=== PATIENT | female | born 1965 | race Caucasian/White ===

== ENCOUNTER 2017-09-21 14:00 | Outpatient (RCR) | payer MEDICAID, SELFPAY | END 2017-09-21 14:01 | disposition home or self-care (01) | LOC: PT 14:00 | PROVIDERS: Family Provider Emergency Medicine; PCP Nurse Practitioner Family; Visit Provider Orthopaedic Surgery Adult Reconstructive Orthopaedic Surgery | DX: M54.5 Low back pain (principal); M54.10 Radiculopathy, site unspecified | CPT/HCPCS: 97010; 97012; 97014; 97035; 97110; G0283 ==

== ENCOUNTER → 2018-02-07 09:56 | Outpatient (CLI) | payer MEDICAID, SELFPAY ==
--- NOTE | 2018-02-07 09:56 | US_ITS ---
US extremity LT limited Ordering Physician: Alin Bee MD Patient Age: 52 years: Female HISTORY: ITS.REASON: Knotpalpable nodule left groin TECHNIQUE: Ultrasound left groin with comparison imaging right groin COMPARISON :No relevant FINDINGS There is a near 3.8 cm in length x 1.9 cm AP CM AP nodule at the left groin. This has a reniform shape and most likely does reflect a enlarged lymph node. There is some shadowing from the likely central fatty hilum likely. Presuming this is a lymph node appears to be a slightly thickened cortex measuring up to 5 mm thickness. ... CT abdomen pelvis may be of benefit with this finding &/in this setting to evaluate for other findings or adenopathy, and support deepak enlargement pattern. . Also FNA guided biopsy would be appropriate at this enlarged lymph node should persist or progress and there is no site of infection more inferiorly at the left leg to account for this enlargement . scanning was performed at the right groin for comparison, and contralateral right reveals no nodules or lymph nodes of this character. IMPRESSION: . Reniform nodule most compatible with an enlarged Lymph node measuring up to nearly 3.8 cm in length- left groin. The cortex appears mildly thickened which is a bothersome feature for possible pathologic lymph node ... Consider CT abdomen /pelvis as next step. To survey for other nodes ... Suggest FNA biopsy of this enlarged node, if no infection or findings to account for it otherwise .
== END ==
PROVIDERS: Family Provider Emergency Medicine; PCP Emergency Medicine; Visit Provider Emergency Medicine
DX: R19.09 Other intra-abdominal and pelvic swelling, mass and lump (principal)
CPT/HCPCS: 76882

== ENCOUNTER → 2018-02-18 08:13 | Outpatient (CLI) | payer MEDICAID, SELFPAY ==
--- NOTE | 2018-02-18 08:15 | CT_ITS ---
CT abdomen pelvis w con CLINICAL INDICATION: Lymphadenopathy ITS.REASON: enlarged lymph node in groin ORDERING PHYSICIAN: SAVAGE Felton PATIENT AGE: 52 years COMPARISON: None TECHNIQUE: Axial images obtained with sagittal and coronal reformats. All CT scans at the facility use one or more dose reduction, viz: automated exposure control; ma/kV adjustment per patient size (including targeted exams where dose is matched to indication; i.e. head); or iterative reconstruction technique. PROCEDURE: Oral Contrast: Redicat IV Contrast: 75 mL's Isovue-370. FINDINGS: There are scattered lucencies in the right lung base consistent with centrilobular emphysematous change. The liver, spleen, and pancreas have an unremarkable appearance. No radio opaque gallstones. The adrenal glands aren't enlarged bilaterally and are indeterminant measuring up to 2 x 1.6 cm on the right and 2.2 x 1.8 cm on the left. The enhanced density is near 35 Hounsfield units on the right and 33 Hounsfield units on the left. No hydronephrosis. No renal mass. No renal or ureteral calculi. No evidence of appendicitis. There is diverticulosis of the entire colon. No evidence of diverticulitis. No retroperitoneal or intraperitoneal adenopathy is evident. No pelvic mass abnormal fluid collection or focal inflammatory change of the pelvis. There is a 5.9 x 4.9 x 4.4 cm solid-appearing mass in the left inguinal area which may be due to an enlarged lymph node. This corresponds to the sonographic abnormality. No other areas of adenopathy evident. The mass is lateral to the common femoral artery, posterior to the sartorius muscle, and medial to the rectus femoris. IMPRESSION: 1. 5.9 x 4.9 x 4.4 cm soft tissue mass in the left inguinal area which may be due to enlarged lymph node. No other areas of adenopathy. 2. Bilateral adrenal enlargement indeterminate
== END ==
PROVIDERS: Family Provider Emergency Medicine; PCP Emergency Medicine; Visit Provider Physician Assistant
DX: R59.9 Enlarged lymph nodes, unspecified (principal)
CPT/HCPCS: 74177; Q9967

== ENCOUNTER → 2018-02-21 09:34 | Outpatient (CLI) | payer MEDICAID, SELFPAY ==
--- NOTE | 2018-02-21 | US_ITS ---
FNA w guidance, US organ site (muscle), US biopsy (core) HISTORY: Left groin mass ITS.REASON: enlarged lymph node in groin ORDERING PHYSICIAN: Alin Bee MD PATIENT AGE: 52 years COMPARISON: [id number] TECHNIQUE: Following obtaining informed consent, using aseptic technique and local anesthesia with buffered lidocaine, fine-needle aspiration was performed of the nodule of interest using sonographic guidance. FNA was performed with a 25-gauge needle. 3 core biopsies were then performed with a 19-gauge needle under sonographic guidance. The patient tolerated the procedure well without evidence of knee, indications and left the radiology suite in stable condition. Specimen was given to cytology. 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
== END ==
PROVIDERS: Family Provider Emergency Medicine; PCP Emergency Medicine; Visit Provider Emergency Medicine
DX: R59.9 Enlarged lymph nodes, unspecified (principal)
CPT/HCPCS: 10022; 76882; 76942

== ENCOUNTER → 2018-03-22 13:38 | Outpatient (CLI) | payer MEDICAID, SELFPAY ==
--- NOTE | 2018-03-22 13:41 | MR_ITS ---
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 The bony pelvis has an unremarkable appearance. The surgically, the left hip joint is unremarkable. No fracture or dislocation. No evidence of avascular necrosis or hip joint effusion. The left groin mass does not involve the left femur nor acetabulum. There is a 5.9 x 4.7 x 4.5 cm mass in the left groin. The margins are well-circumscribed. The mass is isointense on T1 and T2 and does demonstrate some mild peripheral and heterogeneous contrast enhancement. It is difficult to determine exactly which muscle of the tumor is arising in. There is involvement of the anterior and medial aspect of the rectus femoris and the anterior aspect of the iliopsoas muscle. The sartorius muscle is nearly completely involved by the lesion at the level of the femoral head. The sartorius muscle is compressed anteriorly more inferior to this region. The mass is slightly displacing the femoral artery medially. The mass is slightly draped around the rectus femoris tendon anteriorly and posteriorly at the level of the femoral head. IMPRESSION: Left groin mass as described above at 5.9 x 4.7 x 4.5 cm consistent with patient's known granular cell tumor. There is involvement of several adjacent muscles including the rectus femoris, iliopsoas, and sartorius muscles with the greatest involvement of the sartorius. The femoral artery is slightly displaced medially and the lateral margin of the mass great anterior posterior to the rectus femoris tendon. The left hip joint has an unremarkable appearance. No bony involvement evident
== END ==
PROVIDERS: Family Provider Emergency Medicine; PCP Emergency Medicine; Visit Provider Surgery
DX: R10.2 Pelvic and perineal pain (principal)
CPT/HCPCS: 73723; A9576

== ENCOUNTER → 2018-07-30 13:52 | Outpatient (CLI) | payer MEDICAID, SELFPAY | PROVIDERS: Visit Provider Nurse Practitioner Family | DX: J02.9 Acute pharyngitis, unspecified (principal) ==

== ENCOUNTER → 2019-01-14 07:18 | Outpatient (CLI) | payer MEDICAID, SELFPAY ==
[2019-01-14 09:48] LABS: Free Thyroxine Index 2.6 ug/dL (5.93-13.13); T4 (Thyroxine) 7.5 ug/dl (4.7-13.3); Thyroid Stimulating Hormone 1.82 uIU/ml (0.358-3.740); Triiodothryronine (T3) Uptake 34 % (31-39)
[2019-01-14 23:49] LABS: Chol/HDL Ratio 3.6 (1-3.5); Cholesterol 232 mg/dL (140-200); HDL Cholesterol 64 mg/dL (29-89); LDL Cholesterol 149 mg/dL (0-130); Triglycerides 94 mg/dL (30-200); VLDL Cholesterol 19 mg/dL (0-40)
[2019-01-15 08:34] LABS: Estradiol <5.0 pg/mL (.); FSH 85.9 mIU/mL (.); LH 50.3 mIU/mL (.)
[2019-01-16 08:31] LABS: Vitamin D 25 Hydroxy 30.3 ng/mL (30.0-100.0)
== END ==
PROVIDERS: Nurse Practitioner Obstetrics & Gynecology; Visit Provider Obstetrics & Gynecology
DX: N95.1 Menopausal and female climacteric states (principal); R45.86 Emotional lability; R53.83 Other fatigue
CPT/HCPCS: 36415; 80061; 82652; 82670; 83001; 83002; 84436; 84443; 84479

== ENCOUNTER → 2019-02-05 08:45 | Outpatient (CLI) | payer MEDICAID, SELFPAY ==
--- NOTE | 2019-02-05 08:48 | XR_ITS ---
XR DEXA axial skeleton HISTORY: ITS.REASON: screening ORDERING PHYSICIAN: Alin Bee MD PATIENT AGE: 53 years COMPARISON: None FINDINGS: The BMD measured at the AP Spine L1-L4 femoral neck is 0.780 g/cm squared with a T score of -3.3. This is considered Osteoporotic according to the World Health Organization criteria. Fracture risk is High. Treatment is advised. The mean hip density has a T score -2.0. IMPRESSION: Osteoporosis with high fracture risk. Treatment is advised. Suggest follow-up exam January 2020
== END ==
PROVIDERS: PCP Emergency Medicine; Visit Provider Emergency Medicine
DX: Z78.0 Asymptomatic menopausal state (principal)
CPT/HCPCS: 77080

== ENCOUNTER → 2019-03-03 10:44 | Outpatient (CLI) | payer MEDICAID, SELFPAY ==
--- NOTE | 2019-03-03 10:46 | MM_ITS ---
MM Dig screening mamm BI w/CAD CAD Screening COMPARISON: Analog mammograms 03/02/2009 an 04/09/2006 INDICATION: There is no personal or family history of breast cancer TECHNIQUE: Standard CC and MLO images were obtained. R2 CAD reviewed. FINDINGS: Scattered fibroglandular densities are seen throughout both breasts. There is a stable asymmetric nodular density upper inner quadrant left breast which was seen on the previous study and is actually slightly smaller on today's study. This is likely a small cyst or fibroadenoma. There is no new or suspicious lesion in either breast and there are no suspicious microcalcifications. IMPRESSION: Fibrofatty parenchyma with no suspicious lesion seen BI-RADS Category: 2 Benign Finding(s) RECOMMENDED FOLLOW-UP: 1YR - 1 YEAR FOLLOW-UP (A letter has been sent to the patient regarding results of the study.)
== END ==
PROVIDERS: PCP Emergency Medicine; Visit Provider Emergency Medicine
DX: Z12.31 Encounter for screening mammogram for malignant neoplasm of breast (principal)
CPT/HCPCS: 77067

== ENCOUNTER → 2019-03-11 17:43 | Outpatient (CLI) | payer MEDICAID, SELFPAY ==
[2019-03-11 19:25] LABS: Amphetamine/Metha Screen,Urine Negative ng/mL (<1000); Barbiturates Screen,Urine Negative ng/mL (<200); Benzodiazepines Screen,Urine Negative ng/mL (<200); Cannabinoid Screen,Urine Negative ng/mL (<50); Cocaine Screen,Urine Negative ng/mL (<300); Methadone Screen,Urine Negative ng/mL (<300); Opiate Screen,Urine Negative ng/mL (<300); Phencyclidine Screen,Urine Negative ng/mL (<25)
== END ==
PROVIDERS: Visit Provider Nurse Practitioner Family
DX: Z79.899 Other long term (current) drug therapy (principal)
CPT/HCPCS: 80305

== ENCOUNTER 2019-06-25 14:00 | Outpatient (RCR) | payer OTHER, SELFPAY ==
--- NOTE | 2019-05-23 15:06 | HMH.PTOPEV ---
PT Outpatient Evaluation Rehab PT Outpatient Evaluation Start: 05/23/19 14:00 Freq: Status: Active Protocol: Document 05/23/19 14:48 PHORFABIAN (Rec: 05/23/19 15:06 PHORNE [id number]) Electronically Signed By Pedro Castle, PT 05/23/19 14:48 Outpatient Therapy Subjective History Subjective History Pt is 54 yowf who presents with c/o pain in the low back radiating into the right LE to knee distally intermittently x ~ 1 mo. She reports insidious onset of symptoms with intermittent numbness in the right LE also. She describes the pain as quick and sharp, then a constant dull ache and burning. She has increased pain with both flexion and extension. She reports increased pain aith sitting and laying supine as well. PMH: anxiety, GERD, HL, osteoporosis, and currently a left hip granuloma which causes increased pain and numbness throughout the left LE. Chief Complaint Pain Symptom Type Ache,Sharp,Dull,Burning Symptoms Relieved By Nothing Symptoms Aggravated By Supine,Sitting,Standing Prior Functional Limitations None Current Functional Limitations Lifting,Driving,Sleeping, Standing,Sitting Symptom Description Constant but Variable Level of pain today (0-10) 5 Pain scale - at its worst (0-10) 10 Lumbopelvic Eval Palapation tenderness bilateral lumbar spinal tenderness Yes paraspinal tenderness Yes Lumbar/Sacral Palpation Findings Tenderness Lumbar/Sacral Palpation Overall Comment Worse tenderness at T12-L1, but throughout lumbar spine. Accessory Movement T-spine Vertebrae Accessory Movements Central P/A [place] that Elicit Symptoms T11 bilateral T12 bilateral L-spine Vertebrae Accessory Movements Central P/A [place] that Elicit Symptoms L2 bilateral L3 bilateral L4 bilateral L5 bilateral S1 bilateral Range of Motion Lumbar Spine Active Flexion Range of 0-40 Motion (degrees) Lumbar Spine Active Extension Range of 0-5 Motion (degre
== END 2019-06-25 14:05 | disposition home or self-care (01) ==
LOC: PT 14:00
PROVIDERS: Visit Provider Nurse Practitioner Family
DX: M54.9 Dorsalgia, unspecified (principal)
CPT/HCPCS: 97010; 97110; 97163

== ENCOUNTER → 2020-01-14 16:55 | Outpatient (CLI) | payer OTHER, SELFPAY ==
[2020-01-14 18:28] LABS: Basophils # 0.1 K/mm3 (0-0.2); Basophils % 0.7 % (0.1-2.0); Eosinophils # 0.3 K/mm3 (0.0-0.4); Eosinophils % 3.7 % (0.1-12.0); Hematocrit 43.6 % (37.0-47.0); Hemoglobin 14.6 g/dL (12.2-16.2); Lymphocytes # 3.6 K/mm3 (0.7-4.5); Lymphocytes % 40.2 % (10-50); Mean Corpuscular HGB Conc 33.6 g/dL (31.8-35.4); Mean Corpuscular Hemoglobin 30.9 pg (27.0-31.2); Mean Corpuscular Volume 92.1 fl (81-99); Mean Platelet Volume 12.5 fl (7.4-10.4); Monocytes # 0.6 K/mm3 (0.1-1.0); Monocytes % 6.6 % (1.7-9.3); Neutrophils # 4.4 K/mm3 (1.8-7.8); Neutrophils % 48.8 % (37.0-80.0); Platelet Count 181 K/mm3 (142-424); Red Blood Count 4.73 M/mm3 (4.20-5.40); Red Cell Distribution Width 13.2 % (11.5-17.5)
[2020-01-14 18:29] LABS: Alanine Aminotransferase 17 U/L (12-78); Albumin Level 4.3 g/dl (3.5-5.0); Albumin/Globulin Ratio 1.6 (1.1-1.8); Alkaline Phosphatase 93 U/L (38-126); Anion Gap 9.4 mEq/L (5-15); Aspartate Amino Transferase 25 U/L (14-36); Bilirubin,Total 0.2 mg/dl (0.2-1.3); Blood Urea Nitrogen 12 mg/dl (7-17); Calcium 9.8 mg/dl (8.4-10.2); Carbon Dioxide 27 mmol/L (22.0-30.0); Chloride 105 mmol/L (98-107); Chol/HDL Ratio 2.6 (1-3.5); Cholesterol 201 mg/dl (140-200); Estimated Glomerular Filt Rate 88 ml/min (>60); GFR (African American) 106 ML/MIN (>60); Globulin 2.7 g/dL (1.3-3.2); Glucose 124 mg/dl (74-100); HDL Cholesterol 78 mg/dl (40-60); Potassium 4.4 mmoL/L (3.5-5.1); Sodium 137 mmol/L (136-145); Triglycerides 97 mg/dl (30-150); VLDL Cholesterol 19 mg/dL (0-40)
[2020-01-14 18:40] LABS: Direct LDL Cholesterol 128.79 mg/dL (100-129)
[2020-01-14 18:46] LABS: T4 (Thyroxine) 10.1 ug/dl (5.53-11.0)
[2020-01-14 18:59] LABS: Thyroid Stimulating Hormone 1.18 uIU/mL (0.465-4.68)
[2020-01-16 07:27] LABS: Vitamin D 25 Hydroxy 24.3 ng/mL (30.0-100.0)
== END ==
PROVIDERS: Visit Provider Nurse Practitioner Family
DX: Z01.89 Encounter for other specified special examinations (principal); M54.5 Low back pain; E78.5 Hyperlipidemia, unspecified; K21.9 Gastro-esophageal reflux disease without esophagitis; E55.9 Vitamin D deficiency, unspecified; F17.210 Nicotine dependence, cigarettes, uncomplicated; Z79.899 Other long term (current) drug therapy
CPT/HCPCS: 80053; 80061; 82652; 84436; 84443; 85025

== ENCOUNTER → 2020-02-11 14:06 | Outpatient (CLI) | payer OTHER, SELFPAY ==
--- NOTE | 2020-02-11 14:06 | MR_ITS ---
PROCEDURE: MR LUMBAR SPINE WO CON CLINICAL INDICATION: Low Back Paion COMPARISON: [facility] OPERATOR/O MRI-L-SPINE W/O from 07/31/2016 TECHNIQUE: Standard multiplanar multiecho sequences are performed without contrast. 3-D MIP and myelographic images are also rendered and reviewed FINDINGS: There is uniform fat marrow signal hyperintensity. Disc spaces are intact. There a small Schmorl's node within the superior vertebral body end-plate of L2. Spinal cord and conus medullaris is unremarkable. At the L1-2 disc space there is no significant spinal stenosis. At the L2-3 disc space there is no significant spinal stenosis. At the L3-4 disc space there is a bilateral bulging disc without significant spinal stenosis. At the L4-5 disc space there is a broad-based disc protrusion and mild facet arthropathy producing mild central canal stenosis. At the L5-S1 disc space there is no significant spinal stenosis. IMPRESSION: Mild L4-5 spinal stenosis, no change Dictated by: Fuad Mcdonough 02/11/2020 15:10 Electronically signed by Fuad Mcdonough in [facility] 02/11/2020 15:10
== END ==
PROVIDERS: PCP Emergency Medicine; Visit Provider Nurse Practitioner Family
DX: M54.5 Low back pain (principal)
CPT/HCPCS: 72148; 76376

== ENCOUNTER → 2020-03-08 11:16 | Outpatient (POV) | payer OTHER, SELFPAY ==
[2020-03-08 11:46] VITALS: BP 128/85; PULSE 85; RESP 18; TEMP 36.8; O2SAT 98; BMI 28.3
--- NOTE | 2020-03-08 14:25 | HMH.PMCON ---
Assessment and Plan (1) Sacroiliitis Current visit: Yes Status: Chronic Category: Medical Code(s): M46.1 - Sacroiliitis, not elsewhere classified (2) Low back pain Current visit: Yes Status: Chronic Category: Medical Code(s): M54.5 - Low back pain - Assessment and plan all Dx Assessment and Plan for all problems:: Patient does have tenderness over bilateral SI joints. We will schedule her for bilateral to see if she gets relief. We will see her back in the clinic afterwards to reassess her symptoms. Patient has been instructed to contact clinic if she has any concerns before next appointment. The patient and I specifically discussed risk factors for COVID19. These risks include, but are not limited to age greater than 60, heart or lung disease, diabetes, immunosuppression, and travel. We also discussed NSAIDs may worsen COVID19 infection or symptoms. Patient should not use NSAIDs to treat COVID19 signs or symptoms. Patient was also informed that any type of corticosteroid of any form (oral or injection) will decrease the patient's immune system response and may increase the likelihood of COVID19 infection [address] symptoms[address] Collazo has reviewed this note and agrees with this plan of care. This note was dictated using voice recognition software and make contain errors or omissions. HPI - Data of Consult Patient: new to practice Consult date: 03/08/20 Requesting Physician: Vickie Varela APRN Primary Care Provider: Alin Bee MD - Consult Narrative Reason for consult: Low back pain with radiation into bilateral hips History of present illness: Ms. Grossman is a 54 year old female who presents today for low back pain with radiation into her bilateral hips. Patient says that she is having pain in her low back with radiation into her lower extremities. She says the pain is worse with standing or walking and improves with sitting. She has tenderness noted over her bilateral SI joints. She also has a positive Nemesio's, [place]'s, distraction test. She does rate her pain a 5 out of 10. CC: Vickie Varela APRN [facility] History I have reviewed the patient's past medical history: Yes Medical History: Reports:: Anxiety, Gastroesophageal Reflux Disease(GERD), Hyperlipidemia Denies:: Cancer, Diabetes Mellitus Type 1, Diabetes Mellitus Type 2, MRSA *Have you ever received a pneumonia vaccine?: Yes *Have you received a flu vaccine this season?: Yes Other Surgeries: Yes: No Previous Surgery, Tubal Ligation Amputation: No Fractures: Yes - *Social History Smoking Status: Current every day smoker Tobacco Type: cigarettes # Packs/Day (cigarettes): 1 Alcohol Intake: never Substance Use Type: denies use *Occupational Status:: other Housing: house Household Members: other *Travel in the last 8 weeks: None - Psychiatric History Pschychiatric History:: Reports:: Anxiety Family Hx:: Unable to obtain Review of Systems - Review of Systems Review of Systems General: No recent weight changes, no fever, no sleep disturbances Respiratory: No cough, no shortness of air, no recurring pulmonary infections Cardiovascular/peripheral vascular: No chest pain, no palpitations, no edema, no shortness of breath Gastrointestinal: No new onset incontinence, normal bowel movements reported Genitourinary: No new onset incontinence Musculoskeletal: Low back pain, bilateral hip pain Psychiatric: Normal mood/affect Neurological: [Denies weakness in extremities], [denies balance issues] Meds Home Medications Medication Instructions Recorded Confirmed Type omeprazole 20 mg capsule,delayed 20 mg PO BID cap 01/27/19 02/03/20 History release calcium carbonate 600 mg (1,500 tab PO 09/22/19 02/03/20 History mg)-vitamin D3 400 unit tablet cyclobenzaprine 10 mg tablet 10 mg PO TID PRN #60 tab 01/14/20 02/03/20 Rx cholecalciferol (vitamin D3) 1,250 1,250 mcg PO QWEEK #7 cap 01/22/20 02/03/20 Rx mcg (50,000 u
== END ==
PROVIDERS: PCP Emergency Medicine; Visit Provider Clinical Nurse Specialist Family Health
DX: M46.1 Sacroiliitis, not elsewhere classified (principal); M54.5 Low back pain
CPT/HCPCS: 99202

== ENCOUNTER 2020-03-19 14:22 | Day surgery (SDC) | payer OTHER, SELFPAY ==
[2020-03-19 14:44] VITALS: BP 141/81; PULSE 104; RESP 18; TEMP 36.6; O2SAT 100; BMI 29.0
[2020-03-19 15:08] VITALS: BP 122/85; PULSE 85; RESP 18
[2020-03-19 15:09] VITALS: BP 128/78; PULSE 89; RESP 18; O2SAT 98
--- NOTE | 2020-03-19 15:10 | HMH.PMPROC ---
- Procedure Date: 03/19/20 Time: 15:10 Anesthesiologist:: Jose Collazo MD Complications:: None Pre-procedure Diagnosis:: Sacroiliitis Post-procedure Diagnosis:: Same Indications for Procedure:: This patient is a pleasant 54-year-old white female who we are treating for bilateral hip pain. She does have a noncancerous tumor in the left groin. She is tender over both SI joints. She has a positive Nemesio's test bilaterally. She is positive [place] test bilaterally. She is positive SI joint compression test bilaterally. We will do bilateral SI joint injections under fluoroscopy today to help her with her pain symptoms. Procedure Details:: B/L SI joint injection under fluoroscopy Informed consent was obtained and the risks and benefits of the procedure was explained to the patient. The patient was taken to the procedure room and placed prone on the procedure table. The patient was prepped using ChloraPrep. The skin and subcutaneous tissues overlying the SI joints were anesthetized using lidocaine. I placed a 22-gauge needle first in the left SI joint and second in the right SI joint. Needle placement was confirmed with dye. After this we injected 5 mL bupivacaine 0.25% and Depo-Medrol 40 mg into each SI joint. Patient tolerated the procedure well with no complication. Plan and Disposition:: I will follow-up with her in 2 weeks. Will reevaluate her symptoms at that time.
[2020-03-19 15:13] VITALS: BP 159/78; PULSE 101; RESP 18; O2SAT 100
== END 2020-03-19 15:15 | disposition home or self-care (01) ==
LOC: SC.PAINP 14:22
PROVIDERS: PCP Emergency Medicine; Visit Provider Anesthesiology
DX: M46.1 Sacroiliitis, not elsewhere classified (principal); I10 Essential (primary) hypertension; Z72.0 Tobacco use; J44.9 Chronic obstructive pulmonary disease, unspecified; F41.9 Anxiety disorder, unspecified; F32.9 Major depressive disorder, single episode, unspecified; M81.0 Age-related osteoporosis without current pathological fracture; Z79.899 Other long term (current) drug therapy
CPT/HCPCS: 27096; G0260; J1030; Q9966

== ENCOUNTER → 2020-04-08 09:36 | Outpatient (POV) | payer OTHER, SELFPAY ==
[2020-04-08 10:17] VITALS: BP 118/71; PULSE 85; RESP 18; O2SAT 99; BMI 28.3
--- NOTE | 2020-04-08 11:53 | HMH.PAINSOAP ---
[facility] Pain Management SOAP Note Subjective:: Patient is a pleasant 55-year-old white female who presents today for follow-up. She recently underwent bilateral SI joint injections. Patient says that she did get relief on the right side, however, her left side is worse. She rates her pain a 6 out of 10 today. She does not want to proceed with any further injective therapy. Patient also says she is not interested in any epidurals or any type of injections. She is also not interested in any type of imaging or implanted devices. She does take anti-inflammatories. She is tried physical therapy and continues with a home stretching program. Review of Systems General: No recent weight changes, no fever, no sleep disturbances Respiratory: No cough, no shortness of air, no recurring pulmonary infections Cardiovascular/peripheral vascular: No chest pain, no palpitations, no edema, no shortness of breath Gastrointestinal: No new onset incontinence, normal bowel movements reported Genitourinary: No new onset incontinence Musculoskeletal: Left low back pain, left hip pain Psychiatric: Normal mood/affect Neurological: [Denies weakness in extremities], [denies balance issues] Objective:: Physical exam General: Alert and oriented x3, no acute distress, pleasant and cooperative, [on room air] Lungs: Respirations even and unlabored, symmetrical chest expansion Eyes: PERRL Musculoskeletal: Flexion and extension of lumbar spine somewhat guarded secondary to pain, deep tendon reflexes normal, strength in upper and lower extremities [5/5], [abnormal gait noted] positive [place]'s test, positive Nemesio's test, positive distraction test Neurological: Speech clear, wood room hand equal, no gross sensory deficit Assessment:: Sacroiliitis bilateral Plan:: Patient's not interested in further injective therapy. We will start on Flexeril 10 mg 1 tablet p.o. 3 times daily. We will plan to see her back in a month to reassess her symptoms. She has been instructed to contact clinic if she has any concerns for next appointment. The patient and I specifically discussed risk factors for COVID19. These risks include, but are not limited to age greater than 60, heart or lung disease, diabetes, immunosuppression, and travel. We also discussed NSAIDs may worsen COVID19 infection or symptoms. Patient should not use NSAIDs to treat COVID19 signs or symptoms. Patient was also informed that any type of corticosteroid of any form (oral or injection) will decrease the patient's immune system response and may increase the likelihood of COVID19 infection [address] symptoms[address] Collazo has reviewed this note and agrees with this plan of care. This note was dictated using voice recognition software and make contain errors or omissions. [facility] History I have reviewed the patient's past medical history: Yes Medical History: Reports:: Anxiety, Gastroesophageal Reflux Disease(GERD), Hyperlipidemia Denies:: Cancer, Diabetes Mellitus Type 1, Diabetes Mellitus Type 2, MRSA, Seizures *Have you ever received a pneumonia vaccine?: Yes *Have you received a flu vaccine this season?: Yes Other Surgeries: Yes: No Previous Surgery, Tubal Ligation Amputation: No Fractures: Yes - *Social History Smoking Status: Current every day smoker Tobacco Type: cigarettes # Packs/Day (cigarettes): 1 Alcohol Intake: current Alcohol Intake Frequency:: a few times a month Substance Use Type: denies use *Occupational Status:: other Housing: house Household Members: other *Travel in the last 8 weeks: None - Psychiatric History Pschychiatric History:: Reports:: Anxiety Family Hx:: Unable to obtain
== END ==
PROVIDERS: PCP Emergency Medicine; Visit Provider Clinical Nurse Specialist Family Health
DX: M46.1 Sacroiliitis, not elsewhere classified (principal)
CPT/HCPCS: 99212

== ENCOUNTER → 2020-04-22 10:07 | Outpatient (POV) | payer OTHER, SELFPAY ==
--- NOTE | 2020-04-22 11:19 | HMH.PAINSOAP ---
[facility] Pain Management SOAP Note Subjective:: Patient is a pleasant 55-year-old white female who presents today for follow-up. She has been treated for chronic low back pain with radiation into lateral hips. She did undergo SI injections for which she did get relief on the right side, however, her pain continued on the left side. Patient rates her pain a 3 out of 10 today. Patient is managed with gabapentin 800 mg 1 tablet p.o. [address] Bee. We started the patient on Flexeril 10 mg 1 tablet p.o. 3 times daily at her last visit. Patient says since starting Flexeril, she is doing much better with her pain. She says her baseline is a 4 out of 10 and she is a 3 out of 10 today. She also says that she has been able to cut back on her gabapentin. She is now taking her Flexeril 3 times a day and her gabapentin 2 times a day. Overall, the patient feels that she is doing much better with her pain. Review of Systems General: No recent weight changes, no fever, no sleep disturbances Respiratory: No cough, no shortness of air, no recurring pulmonary infections Cardiovascular/peripheral vascular: No chest pain, no palpitations, no edema, no shortness of breath Gastrointestinal: No new onset incontinence, normal bowel movements reported Genitourinary: No new onset incontinence Musculoskeletal: Low back pain, bilateral hip pain Psychiatric: Normal mood/affect Neurological: [Denies weakness in extremities], [denies balance issues] Objective:: Physical exam General: Alert and oriented x3, no acute distress, pleasant and cooperative, [on room air] Lungs: Respirations even and unlabored, symmetrical chest expansion Eyes: PERRL Musculoskeletal: Flexion and extension of lumbar spine somewhat guarded secondary to pain, deep tendon reflexes normal, strength in upper and lower extremities [5/5], [abnormal gait noted] Neurological: Speech clear, web development consultant equal, no gross sensory deficit Assessment:: Degenerative disc disease lumbar spine with lumbar radiculopathy symptoms, sacroiliitis Plan:: We will continue the patient on her Flexeril 10 mg 1 tablet p.o. 3 times daily. She is doing well with her dose. She has been able to cut back on her gabapentin. We will give her 3 months worth of medication see her back in the clinic in 3 months to reassess her symptoms. She does not need any further injective therapy at this time. Patient has been instructed to contact clinic if she has any concerns before next appointment. The patient and I specifically discussed risk factors for COVID19. These risks include, but are not limited to age greater than 60, heart or lung disease, diabetes, immunosuppression, and travel. We also discussed NSAIDs may worsen COVID19 infection or symptoms. Patient should not use NSAIDs to treat COVID19 signs or symptoms. Patient was also informed that any type of corticosteroid of any form (oral or injection) will decrease the patient's immune system response and may increase the likelihood of COVID19 [address] Collazo has reviewed this note and agrees with this plan of care. This note was dictated using voice recognition software and make contain errors or omissions. [facility] History I have reviewed the patient's past medical history: Yes Medical History: Reports:: Anxiety, Gastroesophageal Reflux Disease(GERD), Hyperlipidemia Denies:: Cancer, Diabetes Mellitus Type 1, Diabetes Mellitus Type 2, MRSA, Seizures *Have you ever received a pneumonia vaccine?: Yes *Have you received a flu vaccine this season?: Yes Other Surgeries: Yes: No Previous Surgery, Tubal Ligation Amputation: No Fractures: Yes - *Social History Smoking Status: Current every day smoker Tobacco Type: cigarettes # Packs/Day (cigarettes): 1 Alcohol Intake: current Alcohol Intake Frequency:: a few times a month Substance Use Type: denies use *Occupational Status:: other Housing: house Household Members: other *Travel in the last
[2020-04-22 11:39] VITALS: BP 119/81; PULSE 84; RESP 18; O2SAT 98; BMI 28.3
== END ==
PROVIDERS: PCP Emergency Medicine; Visit Provider Clinical Nurse Specialist Family Health
DX: M51.16 Intervertebral disc disorders with radiculopathy, lumbar region (principal); M46.1 Sacroiliitis, not elsewhere classified
CPT/HCPCS: 99212

== ENCOUNTER → 2020-05-31 10:36 | Outpatient (POV) | payer OTHER, SELFPAY ==
[2020-05-31 11:23] VITALS: BP 125/74; PULSE 84; RESP 18; TEMP 36.8; O2SAT 98; BMI 28.3
--- NOTE | 2020-05-31 12:32 | HMH.PAINSOAP ---
[facility] Pain Management SOAP Note Subjective:: Patient is a very pleasant 55-year-old white female who presents today for follow-up. She has been treated for chronic low back pain with radiation into her bilateral hips. She did undergo SI joint injections which she did get relief on her right side. 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 Patient is currently on gabapentin 800 mg 1 tab p.o. 3 times daily and Flexeril 10 mg 1 p.o. 3 times daily. Patient states most of her pain now is in her thoracic spine. She has difficulty with muscle spasms in that area she has radiation of the pain into her left side through her ribs. She rates her pain a 7 out of 10. ROS General: no recent weight change, no fever, no sleep disturbances Respiratory: no cough, no shortness of air, no recurring pulmonary infections Cardiovascular/Peripheral Vascular: No chest pain, No palpitations, no edema, no shortness of breath. Gastrointestinal: no new onset incontinence, normal bowel movements reported Genitourinary: no new onset incontinence Musculoskeletal: Thoracic back pain Psychiatric: normal mood/ affect Neurological: [denies new onset weakness in extremities], [denies new onset balance issues] Objective:: Physical Exam General: Alert and oriented x3, no acute distress, pleasant and cooperative, [on room air] Lungs: Resps E/U, Symmetrical chest expansion, Eyes: PERRL Musculoskeletal: Flexion and extension of thoracic spine somewhat guarded secondary to pain, deep tendon reflexes normal, strength in upper and lower extremities [5/5], normal gait noted, palpable trigger points throughout the thoracic paraspinous Neurological: speech clear, warehouse distribution associate equal, no gross sensory deficits Assessment:: Degenerative disc disease lumbar spine lumbar radiculopathy, thoracic back pain, myofascial pain syndrome, sacroiliitis Plan:: We will order a thoracic MRI to help determine pathology with the patient. We will continue her on her Flexeril 10 mg 1 p.o. 3 times daily. Patient is instructed to call the office if she has any issues prior to her next appointment. We will follow-up with her after her MRI. Patient may need thoracic trigger point injections. Dr. Collazo has reviewed this note and agrees with this plan of care. This note was dictated using voice recognition software and may contain errors or omissions [facility] History I have reviewed the patient's past medical history: Yes Medical History: Reports:: Anxiety, Gastroesophageal Reflux Disease(GERD), Hyperlipidemia Denies:: Cancer, Diabetes Mellitus Type 1, Diabetes Mellitus Type 2, MRSA, Seizures *Have you ever received a pneumonia vaccine?: Yes *Have you received a flu vaccine this season?: Yes Other Surgeries: Yes: No Previous Surgery, Tubal Ligation Amputation: No Fractures: Yes - *Social History Smoking Status: Current every day smoker Tobacco Type: cigarettes # Packs/Day (cigarettes): 1 Alcohol Intake: current Alcohol Intake Frequency:: a few times a month Substance Use Type: denies use *Occupational Status:: other Housing: house Household Members: other *Travel in the last 8 weeks: None - Psychiatric History Pschychiatric History:: Reports:: Anxiety Family Hx:: Unable to obtain
== END ==
PROVIDERS: PCP Emergency Medicine; Visit Provider Clinical Nurse Specialist Family Health
DX: M51.16 Intervertebral disc disorders with radiculopathy, lumbar region (principal); M54.6 Pain in thoracic spine; M79.18 Myalgia, other site; M46.1 Sacroiliitis, not elsewhere classified; Z72.0 Tobacco use
CPT/HCPCS: 99212

== ENCOUNTER → 2020-06-07 14:13 | Outpatient (CLI) | payer OTHER, SELFPAY ==
--- NOTE | 2020-06-07 14:16 | MR_ITS ---
PROCEDURE: MR THORACIC SPINE WO CON CLINICAL INDICATION: BACK PAIN Left-sided back pain and tingling AND PAIN. [id number]. NO INJURY. NO PRIOR. COMPARISON: CR XR CHEST 2V from 09/01/2019 TECHNIQUE: Routine multiplanar multi echo sequences are performed without gadolinium enhancement. FINDINGS: There is normal alignment. No acute fracture or dislocation is evident. No lytic or blastic change. There is mild upper thoracic scoliosis convex left and mild lower thoracic scoliosis convex right. There is mild multilevel disc desiccation suggesting mild degenerative disc disease. There is some facet and ligamentum hypertrophy on the right at T4-T5 with mild right lateral recess narrowing. Mild degenerative disc disease T3-T4. Small left paracentral disc osteophyte complex at T8-T9 with degenerative disc disease at that level. No cord impingement. The spinal cord has an unremarkable appearance and ends at the T12-L1 level. IMPRESSION: Mild thoracic spondylosis with mild scoliosis. No acute fracture or dislocation. No disc herniation or canal stenosis. Please see above for detailed description. Dictated by: Carl Urena MD 06/07/2020 17:18 Carl Urena MD in [place] 06/08/2020 09:22
== END ==
PROVIDERS: PCP Emergency Medicine; Visit Provider Clinical Nurse Specialist Family Health
DX: M54.6 Pain in thoracic spine (principal)
CPT/HCPCS: 72146

== ENCOUNTER → 2020-06-14 11:36 | Outpatient (POV) | payer OTHER, SELFPAY ==
--- NOTE | 2020-06-14 12:06 | P.CONS_ITS ---
[facility] Pain Management SOAP Note Subjective:: She is a pleasant 55-year-old white female who presents today for follow-up after MRI. She has been treated for chronic low back pain with radiation into her bilateral hips she did undergo SI joint injections which she did get relief on her right side however her left side is still having some pain but the worst pain is in her thoracic spine. She recently had an MRI showing Small left paracentral disc osteophyte complex at T8-T9 with degenerative disc disease at that level. Patient states that most of her pain is on the left side of her thoracic spine radiating into her intercostal space at times. She is currently on gabapentin 800 mg 1 tab p.o. 3 times daily and Flexeril 10 mg 1 p.o. 3 times daily. Patient is interested in injective therapy. She is not on any anticoagulation therapy. She rates her pain today 6 out of 10. ROS General: no recent weight change, no fever, no sleep disturbances Respiratory: no cough, no shortness of air, no recurring pulmonary infections Cardiovascular/Peripheral Vascular: No chest pain, No palpitations, no edema, no shortness of breath. Gastrointestinal: no new onset incontinence, normal bowel movements reported Genitourinary: no new onset incontinence Musculoskeletal: Thoracic back pain Psychiatric: normal mood/ affect Neurological: [denies new onset weakness in extremities], [denies new onset balance issues] Objective:: Physical Exam General: Alert and oriented x3, no acute distress, pleasant and cooperative, [on room air] Lungs: Resps E/U, Symmetrical chest expansion, Eyes: PERRL Musculoskeletal: Flexion and extension of thoracic spine somewhat guarded secondary to pain, deep tendon reflexes normal, strength in upper and lower extremities [5/5], antalgic gait noted Neurological: speech clear, assistant media buyer equal, no gross sensory deficits Assessment:: Degenerative disc disease thoracic spine thoracic radiculopathy Plan:: We will move forward with a T 8 T9 epidural steroid injection. I believe in given her symptomology and pathology this will benefit her. Patient has failed conservative measures including medications I will follow-up with her after her injection reassess her symptoms at that time she has been instructed to call the office if she has any issues prior to her next appointment. Dr. Collazo has reviewed this note and agrees with this plan of care. This note was dictated using voice recognition software and may contain errors or omissions [facility] History I have reviewed the patient's past medical history: Yes Medical History: Reports:: Anxiety, Gastroesophageal Reflux Disease(GERD), Hyperlipidemia Denies:: Cancer, Diabetes Mellitus Type 1, Diabetes Mellitus Type 2, MRSA, Seizures *Have you ever received a pneumonia vaccine?: Yes *Have you received a flu vaccine this season?: Yes Other Surgeries: Yes: No Previous Surgery, Tubal Ligation Amputation: No Fractures: Yes - *Social History Smoking Status: Current every day smoker Tobacco Type: cigarettes # Packs/Day (cigarettes): 1 Alcohol Intake: current Alcohol Intake Frequency:: a few times a month Substance Use Type: denies use *Occupational Status:: other Housing: house Household Members: other *Travel in the last 8 weeks: None - Psychiatric History Pschychiatric History:: Reports:: Anxiety Family Hx:: Unable to obtain
[2020-06-14 12:46] VITALS: BP 140/74; PULSE 74; RESP 18; O2SAT 98; BMI 29.2
== END ==
PROVIDERS: PCP Emergency Medicine; Visit Provider Clinical Nurse Specialist Family Health
DX: M51.14 Intervertebral disc disorders with radiculopathy, thoracic region (principal)
CPT/HCPCS: 99212

== ENCOUNTER 2020-08-03 21:01 | Emergency (ER) | payer OTHER, SELFPAY ==
[2020-08-03 21:02] VITALS: BP 140/97; PULSE 102; RESP 16; TEMP 36.9; O2SAT 98; BMI 28.3
--- NOTE | 2020-08-03 21:31 | PC.NURSE ---
pt ambulated to the bathroom independently. tolerated well
--- NOTE | 2020-08-03 21:40 | HMH.EDBACK ---
ED Disposition Clinical Impression: Thoracic or lumbosacral neuritis or radiculitis Disposition: Home, Self-Care Condition on Discharge: Good Instructions: DI for Acute Pain -- Adult Additional Instructions: see pcp and dr collazo for follow up Referrals: Alin Bee MD [Primary Care Provider] - - Critical Care Critical Care Time: No Attestation: On 08/03/20, the high probability of a clinically significant, sudden or life threatening deterioration of the following system(s) required my full and direct attention, intervention and personal management. The time I documented below is in addition to time spent performing reported procedures but includes the following listed in this critical care notation. Medical Decision Making - Medical Records Medical records reviewed: Yes: I reviewed the patient's medical records. - Kj Inquiry Pt receiving controlled substance: No Vital Signs: 08/03/20 21:02 Temperature 98.4 F Temperature Source Oral Pulse Rate [Left Radial] 102 H Respiratory Rate 16 Blood Pressure [Right Arm] 140/97 H Blood Pressure Mean [Right Arm] 111 Blood Pressure Source [Right Arm] Automatic Cuff Blood Pressure Position [Right Arm] Sitting 02 Sat by Pulse Oximetry 98 Oxygen Delivery Method Room Air - Lab Data Lab results reviewed: Yes: I reviewed the patient's lab results. Back Pain HPI - General Chief Complaint: PAIN Stated Complaint: BACK AND ;EG PAIN Time Seen by Provider: 08/03/20 21:30 Mode of Arrival: Ambulatory Source of Information: Patient, Medical Record Limitations: No Limitations Description of Symptoms (Recalled from ER Triage Doc. by RN): pt complains of chronic lower back and sciatic pain but stated it has gotten worse since 2pm today. pt denies any injury or new sensation to her pain. pt stated she took a flexaril at 3pm today that gave her no relief and hasnt taken any medication since. pt stated she is scheduled to have a thoracic injection performed by Dr. Collazo this sunday. - History of Present Illness HPI Narrative: ongoing back pain with pending eval by dr collazo- she presents with increased pain since 1400 w/o fever/rash or trauma - she fell against chair today as leg gave out but declined xrays as she felt it was not sig injury - no cauda equina sx Complaint: back pain Onset (ago): hour(s) Duration: constant Similar Symptoms Previously: Yes Location: thoracic spine Severity: moderate Quality: sharp Radiation: left leg Relieving factors: none Associated symptoms: denies other symptoms - Related Data Home Medications Medication Instructions Recorded Confirmed calcium carbonate 600 mg (1,500 1 tab PO DAILY 09/22/19 08/03/20 mg)-vitamin D3 400 unit tablet Cholecalciferol (Vitamin D3) 1,250 mcg PO QWEEK 03/19/20 08/03/20 [Vitamin D3 50,000 unit Cap] Fluticasone Propionate 1 spray INTRANASAL DAILY 03/19/20 08/03/20 Citalopram Hydrobromide [Celexa] See Rx Instructions .ROUTE .COMPLEX 08/03/20 08/03/20 Cyclobenzaprine HCl [Flexeril 10mg 10 mg PO TID 08/03/20 08/03/20 tablet] Fluticasone/Vilanterol [Breo 1 inh INHALATION DAILY 08/03/20 08/03/20 Ellipta 100-25 Mcg INH] Quetiapine Fumarate See Rx Instructions .ROUTE .COMPLEX 08/03/20 08/03/20 polyethylene glycoL 3350 17 g PO DAILY 08/03/20 08/03/20 [Polyethylene Glycol 3350] Previous Rx's Medication Instructions Recorded omeprazole 20 mg capsule,delayed 20 mg PO BID #180 cap 04/07/20 release alendronate 70 mg tablet 70 mg PO QWEEK #14 tab 05/08/20 naproxen 500 mg tablet 500 mg PO BID PRN #60 tab 05/13/20 gabapentin 800 mg tablet 800 mg PO TID #90 tab 06/15/20 Allergies Allergy/AdvReac Type Severity Reaction Status Date / Time No Known Allergies Allergy Verified 08/03/20 21:18 [facility] History - Hepatitis A Screen Drug use history?: No High risk sexual behaviors?: No History of sexually transmitted infection?: No Currently employed?: No Childcare worker?: No Do you have
--- NOTE | 2020-08-03 21:41 | PC.NURSE ---
pt friend/ ride home at bedside
[2020-08-03 21:51] VITALS: BP 137/83; PULSE 91; RESP 16; O2SAT 95
[2020-08-03 22:20] VITALS: BP 132/81; PULSE 89; RESP 16; TEMP 37.1; O2SAT 97
== END 2020-08-03 22:20 | disposition home or self-care (01) ==
PROVIDERS: Emergency Provider Emergency Medicine; PCP Emergency Medicine
DX: M46.1 Sacroiliitis, not elsewhere classified (principal); F41.9 Anxiety disorder, unspecified; E78.5 Hyperlipidemia, unspecified; K21.9 Gastro-esophageal reflux disease without esophagitis; G62.9 Polyneuropathy, unspecified; F17.210 Nicotine dependence, cigarettes, uncomplicated; Z79.899 Other long term (current) drug therapy
CPT/HCPCS: 96372; 99282

== ENCOUNTER 2020-08-06 10:59 | Day surgery (SDC) | payer OTHER, SELFPAY ==
[2020-08-06 11:04] VITALS: BP 143/82; BP 145/87; PULSE 75; PULSE 86; RESP 18; TEMP 36.6; O2SAT 98; BMI 28.3
[2020-08-06 11:45] VITALS: BP 132/85; PULSE 85
[2020-08-06 11:46] VITALS: BP 133/85; PULSE 89; RESP 18; O2SAT 98
--- NOTE | 2020-08-06 12:47 | HMH.PMPROC ---
- Procedure Date: 08/06/20 Time: 12:47 Anesthesiologist:: Jose Collazo MD Complications:: None Pre-procedure Diagnosis:: Degenerative disc disease of thoracic spine with thoracic radiculopathy symptoms and increasing mid back pain Post-procedure Diagnosis:: Same Indications for Procedure:: Patient is a pleasant 55-year-old white female who we are treating for mid back pain with degenerative disc disease of thoracic spine and thoracic radiculopathy symptoms. We will do a thoracic of epidural steroid injection today to help her with her pain symptoms. She has done well with SI joint injections with relief on the right side however some residual pain on the left side. Her pain now is in the mid back and on the left side. Procedure Details:: Thoracic epidural steroid injection Under fluoroscopy Informed consent was obtained and the risk and benefits of the procedure was explained to the patient. Patient was taken to the procedure room. The back was prepped using ChloraPrep. C-arm fluoroscopy was used to view the thoracic spine. The skin and subtest tissues were anesthetized using lidocaine. I placed a 17-gauge Touhy epidural needle into the T8-T9 interspace. I advanced using [id number] to air and fluoroscopic guidance until the epidural space was reached. Confirmation of needle placement in the epidural space was with dye. After this we injected 1 mL lidocaine 1.5% and Depo-Medrol 80 mg. The patient tolerated the procedure well with no complication. Plan and Disposition:: We will follow-up with her in 2 weeks. Will reevaluate symptoms at that time.
== END 2020-08-06 12:00 | disposition home or self-care (01) ==
LOC: SC.PAINP 11:02
PROVIDERS: PCP Emergency Medicine; Visit Provider Anesthesiology
DX: M51.14 Intervertebral disc disorders with radiculopathy, thoracic region (principal); J44.9 Chronic obstructive pulmonary disease, unspecified; Z72.0 Tobacco use; E78.5 Hyperlipidemia, unspecified; M81.0 Age-related osteoporosis without current pathological fracture; F41.9 Anxiety disorder, unspecified; F32.9 Major depressive disorder, single episode, unspecified; Z79.899 Other long term (current) drug therapy
CPT/HCPCS: 62321; J1040; Q9966

== ENCOUNTER → 2020-09-02 10:11 | Outpatient (POV) | payer OTHER, SELFPAY ==
[2020-09-02 11:21] VITALS: BP 133/71; PULSE 65; RESP 18; TEMP 36.2; O2SAT 99; BMI 28.3
--- NOTE | 2020-09-09 17:29 | HMH.PAINSOAP ---
[facility] Pain Management SOAP Note Subjective:: Patient is a 55-year-old white female who we are treating for mid back pain. Patient is following up after her thoracic epidural steroid injection. Patient rates her pain a 7 out of 10 stating her pain got worse after her epidural injection. I discussed with her potential surgical consultation she would like to move forward with this. She has had SI joint injections in the past and did well with this however this is a new worsening pain. Patient currently on gabapentin from her primary care physician. ROS General: no recent weight change, no fever, no sleep disturbances Respiratory: no cough, no shortness of air, no recurring pulmonary infections Cardiovascular/Peripheral Vascular: No chest pain, No palpitations, no edema, no shortness of breath. Gastrointestinal: no new onset incontinence, normal bowel movements reported Genitourinary: no new onset incontinence Musculoskeletal: Thoracic back pain Psychiatric: normal mood/ affect Neurological: [denies new onset weakness in extremities], [denies new onset balance issues] Objective:: Physical Exam General: Alert and oriented x3, no acute distress, pleasant and cooperative, [on room air] Lungs: Resps E/U, Symmetrical chest expansion, Eyes: PERRL Musculoskeletal: Flexion and extension of lumbar and thoracic spine somewhat guarded secondary to pain, deep tendon reflexes normal, strength in upper and lower extremities [5/5], slightly antalgic gait noted Neurological: speech clear, bushing press operator equal, no gross sensory deficits Assessment:: Degenerative disc disease thoracic spine with thoracic radiculopathy Plan:: Send the patient for consultation with Dr. Lucia she has been instructed to call the office if she has any issues prior to her next appointment. Dr. Clolazo has reviewed this note and agrees with this plan of care. This note was dictated using voice recognition software and may contain errors or omissions [facility] History I have reviewed the patient's past medical history: Yes Medical History: Reports:: Anxiety, Gastroesophageal Reflux Disease(GERD), Hyperlipidemia Denies:: Cancer, Diabetes Mellitus Type 1, Diabetes Mellitus Type 2, MRSA, Seizures *Have you ever received a pneumonia vaccine?: Yes *Have you received a flu vaccine this season?: Yes Other Medical History: Denies: Blood Transfusion Reaction Other Surgeries: Yes: No Previous Surgery, Tubal Ligation Amputation: No Fractures: Yes - *Social History Smoking Status: Current every day smoker Tobacco Type: cigarettes # Packs/Day (cigarettes): 1 Alcohol Intake: never Alcohol Intake Frequency:: a few times a month Substance Use Type: denies use *Occupational Status:: other Housing: house Household Members: spouse *Travel in the last 8 weeks: None - Psychiatric History Pschychiatric History:: Reports:: Anxiety Family Hx:: Unable to obtain
== END ==
PROVIDERS: PCP Emergency Medicine; Visit Provider Clinical Nurse Specialist Family Health
DX: M51.14 Intervertebral disc disorders with radiculopathy, thoracic region (principal)
CPT/HCPCS: 99212; G0463

== ENCOUNTER → 2020-12-24 13:29 | Outpatient (CLI) | payer OTHER, SELFPAY ==
--- NOTE | 2020-12-24 13:29 | MR_ITS ---
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 Symptoms x3wks. COMPARISON: No exams were available for comparison TECHNIQUE: Routine multiplanar multi echo sequences are performed without gadolinium enhancement. FINDINGS: No midline shift, intracranial hemorrhage, or hydrocephalus. No evidence of acute infarction. Unremarkable white matter signal intensity. There is a well-circumscribed CSF collection in the retro cerebellar region centrally and right paracentral area. This measures 3 x 2.6 x 4.6 cm and has CSF intensity on all sequences consistent with a retro cerebellar arachnoid cyst. No cortical veins are coursing through this abnormality. There is only minimal compression upon the posterior aspect of the cerebellum centrally on the right and the medial and inferior aspect of the right occipital lobe. No edema apparent. The pituitary, optic chiasm, corpus callosum, and craniocervical junction have an unremarkable appearance. No mastoid effusion. There is moderate opacification of the ethmoid air cells and mild mucosal thickening of the maxillary sinus. IMPRESSION: 1. No acute intracranial findings. 2. Retro cerebellar arachnoid cyst as described above 4.6 x 2.6 x 3 cm with minimal compression upon the posterior medial aspect of the right cerebellar cortex and the medial aspect and posterior inferior aspect of the right occipital lobe. No edema apparent. 3. Sinus disease Dictated by: Carl Urena MD 12/25/2020 09:25 Carl Urena MD in [place] 12/25/2020 09:25
--- NOTE | 2020-12-24 14:16 | MM_ITS ---
PROCEDURE INFORMATION: Exam: Screening 3D Mammography Exam date and time: 12/24/2020 2:16 PM Age: 55 years old Clinical indication: screening mammogram TECHNIQUE: Imaging protocol: Screening tomosynthesis and 2D mammography including computer-aided detection (CAD) when performed. COMPARISON: DIG MAMM-SCREEN TOM 03/03/2019 11:12 AM FINDINGS: MAMMOGRAPHY: Breast composition: The breast tissue is heterogeneously dense, which may obscure small masses. Mass: Stable benign-appearing subcentimeter nodules are present in the left breast. No new or morphologically suspicious nodule has developed to suggest malignancy. Architectural distortion: No new or suspicious architectural distortion. Calcifications: No new or suspicious calcifications are present Asymmetric density: No new or suspicious asymmetric density is present Skin thickening: None. Axillary adenopathy: None. IMPRESSION: No mammographic evidence of malignancy. Recommend annual screening mammography unless otherwise clinically indicated. ASSESSMENT: BI-RADS category 2: Benign
== END ==
PROVIDERS: PCP Emergency Medicine; Visit Provider Emergency Medicine
DX: Z12.31 Encounter for screening mammogram for malignant neoplasm of breast (principal); R29.898 Other symptoms and signs involving the musculoskeletal system
CPT/HCPCS: 70551; 77063; 77067

== ENCOUNTER → 2021-03-14 19:44 | Outpatient (CLI) | payer OTHER, SELFPAY ==
[2021-03-14 20:24] LABS: Basophils # 0.1 K/mm3 (0-0.2); Basophils % 0.8 % (0.1-2.0); Eosinophils # 0.3 K/mm3 (0.0-0.4); Eosinophils % 3.1 % (0.1-12.0); Hematocrit 41.7 % (37.0-47.0); Hemoglobin 13.2 g/dL (12.2-16.2); Lymphocytes # 3.9 K/mm3 (0.7-4.5); Mean Corpuscular HGB Conc 31.8 g/dL (31.8-35.4); Mean Corpuscular Volume 91.3 fl (81-99); Monocytes # 0.7 K/mm3 (0.1-1.0); Monocytes % 6.5 % (1.7-9.3); Neutrophils # 6.1 K/mm3 (1.8-7.8); Neutrophils % 54.8 % (37.0-80.0); Platelet Count 225 K/mm3 (142-424); Red Blood Count 4.57 M/mm3 (4.20-5.40); Red Cell Distribution Width 13.3 % (11.5-17.5); White Blood Count 11.1 K/mm3 (4.8-10.8)
[2021-03-14 20:49] LABS: Alanine Aminotransferase 20 U/L (12-78); Albumin Level 4.3 g/dl (3.5-5.0); Albumin/Globulin Ratio 1.5 (1.1-1.8); Alkaline Phosphatase 99 U/L (38-126); Anion Gap 9.4 mEq/L (5-15); Aspartate Amino Transferase 35 U/L (14-36); Bilirubin,Total 0.4 mg/dl (0.2-1.3); Blood Urea Nitrogen 10 mg/dl (7-17); Carbon Dioxide 26 mmol/L (22.0-30.0); Chloride 106 mmol/L (98-107); Chol/HDL Ratio 2.8 (1-3.5); Cholesterol 232 mg/dl (140-200); Estimated Glomerular Filt Rate 104 ml/min (>60); GFR (African American) 126 ML/MIN (>60); Globulin 2.8 g/dL (1.3-3.2); Glucose 96 mg/dl (74-100); HDL Cholesterol 82 mg/dl (40-60); Potassium 4.4 mmoL/L (3.5-5.1); Sodium 137 mmol/L (136-145); Total Protein,Serum 7.1 g/dl (6.3-8.2); Triglycerides 70 mg/dl (30-150); VLDL Cholesterol 14 mg/dL (0-40)
[2021-03-14 20:59] LABS: Direct LDL Cholesterol 126.51 mg/dL (100-129)
[2021-03-14 21:04] LABS: 25-OH Vitamin D, Total 25.1 ng/mL (30-100)
[2021-03-14 21:14] LABS: Free T4 (Free Thyroxine) 0.91 ng/dl (0.78-2.19)
[2021-03-14 21:18] LABS: Thyroid Stimulating Hormone 1.22 uIU/mL (0.465-4.68)
== END ==
PROVIDERS: Visit Provider Emergency Medicine
DX: R53.83 Other fatigue (principal); E55.9 Vitamin D deficiency, unspecified; Z79.899 Other long term (current) drug therapy
CPT/HCPCS: 80053; 80061; 82306; 84439; 84443; 85025

== ENCOUNTER 2021-06-05 08:04 | Emergency (ER) | payer MEDICARE, OTHER, SELFPAY ==
[2021-06-05 08:05] VITALS: BP 149/94; PULSE 95; RESP 20; TEMP 36.8; O2SAT 98; BMI 28.3
--- NOTE | 2021-06-05 08:16 | XR_ITS ---
PROCEDURE INFORMATION: Exam: XR Chest Exam date and time: 06/05/2021 8:16 AM Age: 56 years old Clinical indication: Injury or trauma; Fall; Blunt trauma (contusions or hematomas); Injury date: 06/04/21; Injury details: Fell chest contusion; Additional info: Chest pain 2/2 to fall TECHNIQUE: Imaging protocol: XR of the chest. Views: 2 views. COMPARISON: CR XR CHEST 2V 09/01/2019 12:13 PM FINDINGS: Lungs: Emphysematous change and interstitial prominence. Pleural spaces: No pleural effusion. Heart/Mediastinum: Epicardial fat, without cardiomegaly. Bones/joints: Osteopenia , mild degenerative change, and scoliosis. IMPRESSION: Emphysematous change and interstitial prominence.
--- NOTE | 2021-06-05 08:55 | HMH.EDGENADL ---
ED Disposition Clinical Impression: Rib pain on right side Disposition: Home, Self-Care Condition on Discharge: Good Additional Instructions: Please follow up with your primary care physician in 2-3 days for further management. Please utilize Tylenol and ibuprofen for pain control. Please return to ED for any concerning symptoms such as difficulty breathing, chest pain, inability to eat and drink or any other worsening symptoms. Referrals: Alin Bee MD [Primary Care Provider] - - Critical Care Critical Care Time: No Attestation: On 06/05/21, the high probability of a clinically significant, sudden or life threatening deterioration of the following system(s) required my full and direct attention, intervention and personal management. The time I documented below is in addition to time spent performing reported procedures but includes the following listed in this critical care notation. Medical Decision Making - Kj Inquiry Pt receiving controlled substance: No Kj was queried for this patient: No Vital Signs: 06/05/21 08:05 06/05/21 10:17 Temperature 98.2 F 97.9 F Temperature Source Oral Oral Pulse Rate 78 Pulse Rate [Left Radial] 95 H Respiratory Rate 20 18 Blood Pressure 136/65 Blood Pressure [Left Arm] 149/94 H Blood Pressure Mean [Left Arm] 112 Blood Pressure Source Automatic Cuff Blood Pressure Source [Left Arm] Automatic Cuff Blood Pressure Position Sitting Blood Pressure Position [Left Arm] Sitting 02 Sat by Pulse Oximetry 98 Oxygen Delivery Method Room Air Room Air Orders (Tests/Meds): ED MEDICATIONS Discontinued Medications Generic Name Dose Route Start Last Admin Trade Name Erickq PRN Reason Stop Dose Admin Acetaminophen 1,000 mg 06/05/21 08:16 06/05/21 09:25 Acetaminophen 500mg Tab PO 06/05/21 08:17 1,000 mg ONCE ONE Administration Ibuprofen 600 mg 06/05/21 08:16 06/05/21 09:25 Ibuprofen 600 Mg Tablet PO 06/05/21 08:17 600 mg ONCE ONE Administration Medical Decision Narrative: Miss Grossman is a 56 yo female with no significant PMH, who presents to the emergency department for right-sided rib pain following a mechanical fall down the stairs. Patient denies hitting head, negative LOC. Patient is neurovascularly intact and hemodynamically stable on arrival. Physical exam remarkable for right-sided rib pain, tender upon palpation and exacerbated with twisting. No overlying skin changes noted. Pulmonary exam unremarkable, equal clear breath sounds bilaterally. Differentials considered not limited to include; fractures, pneumothorax however less likely given benign lung exam, MSK most likely given quality of symptoms. Low concern for cardiac mediated given pain in setting of trauma will not investigate further. CXR obtained and is non actionable. No fractures, no pneumothroax, normal cardipulmonary silhouette. Patient is given tylenol and ibuprofen PO for pain control w/ moderate relief in symptoms. Upon reassessment patient reports she feels comfortable with discharge at this time. Patient is informed to fu w/. her primary care physician in 2-3 days for further management and to return if symptoms worsen or reoccur. General Adult HPI - General Chief complaint: PAIN Stated complaint: AO fall 06/04 rt rib pain Time Seen by Provider: 06/05/21 08:30 Mode of Arrival: Ambulatory Source of Information: Patient Limitations: No Limitations Description of Symptoms (Recalled from ER Triage Doc. by RN): Pt c/o pain in R rib area under axilla beside R breast. Pt reports she fell last week and then again lastnight. Pt reports pain is worse with movement. - History of Present Illness HPI narrative: Mrs. Boles is a 56-year-old female with no significant PMH, who presents to emergency department with right-sided rib pain following a mechanical fall. Patient reports last , she was walking down the stairs and slipped, patient reports catching her
[2021-06-05 10:17] VITALS: BP 136/65; PULSE 78; RESP 18; TEMP 36.6; O2SAT 99
== END 2021-06-05 10:18 | disposition home or self-care (01) ==
PROVIDERS: Emergency Provider Student in an Organized Health Care Education/Training Program; PCP Emergency Medicine
DX: R07.81 Pleurodynia (principal); W10.9XXA Fall (on) (from) unspecified stairs and steps, initial encounter; Y92.019 Unspecified place in single-family (private) house as the place of occurrence of the external cause; K21.9 Gastro-esophageal reflux disease without esophagitis; E78.5 Hyperlipidemia, unspecified; F17.210 Nicotine dependence, cigarettes, uncomplicated; F41.9 Anxiety disorder, unspecified
CPT/HCPCS: 71046; 99282

== ENCOUNTER → 2021-06-06 18:10 | Outpatient (CLI) | payer MEDICARE, OTHER, SELFPAY ==
[2021-06-06 21:09] LABS: Amphetamine/Metha Screen,Urine Negative ng/ml (<1000); Barbiturates Screen,Urine Negative ng/ml (<200)
[2021-06-06 21:10] LABS: Benzodiazepines Screen,Urine Negative ng/ml (<200); Cannabinoid Screen,Urine Negative ng/ml (<50)
[2021-06-06 21:11] LABS: Cocaine Screen,Urine Negative ng/ml (<300)
[2021-06-06 21:12] LABS: Methadone Screen,Urine Negative ng/ml (<300); Opiate Screen,Urine Negative ng/ml (<300)
[2021-06-06 21:13] LABS: Phencyclidine Screen,Urine Negative ng/ml (<25)
== END ==
PROVIDERS: Visit Provider Emergency Medicine
DX: Z79.899 Other long term (current) drug therapy (principal)
CPT/HCPCS: 80305

== ENCOUNTER 2021-08-16 18:01 | Emergency (ER) | payer OTHER, SELFPAY ==
[2021-08-16 18:02] VITALS: BP 150/90; PULSE 96; RESP 20; TEMP 36.8; O2SAT 96; BMI 31.2
--- NOTE | 2021-08-16 18:23 | ECG_ITS ---
APPROVED REPORT Exam: Resting ECG HR:96 bpm ECG Measurements Heart Rate 96 AXES WV 148 P 70 QRSd 92 QRS 44 QT 362 T 63 QTc 457 Conclusion Normal sinus rhythm Normal ECG Electronically signed by : Alex Curiel MD 08/17/2021 13:22:48
--- NOTE | 2021-08-16 18:23 | XR_ITS ---
PROCEDURE INFORMATION: Exam: XR Chest Exam date and time: 08/16/2021 6:23 PM Age: 56 years old Clinical indication: Right-sided; Patient HX: Right pleuritic chest pain, smoker. ; Additional info: RT pleuritic cp TECHNIQUE: Imaging protocol: XR of the chest. Views: 2 views. COMPARISON: CR XR CHEST 2V 06/05/2021 8:29 AM FINDINGS: Lungs: Unremarkable. No consolidation. Pleural spaces: Unremarkable. No pleural effusion. No pneumothorax. Heart/Mediastinum: Unremarkable. No cardiomegaly. Bones/joints: Displaced fractures of the right 8th and probably 7th lateral ribs. IMPRESSION: 1. Displaced fractures of the right 8th and probably 7th lateral ribs. 2. No pneumothorax or hemothorax noted.
--- NOTE | 2021-08-16 18:24 | HMH.EDGENADL ---
ED Disposition <Darian Lentz - Last Filed: 08/16/21 19:45> Condition on Discharge: Good Time of Disposition: 20:30 - Critical Care Critical Care Time: No <Radha Henson - Last Filed: 08/18/21 21:32> Clinical Impression: Rib pain on right side, Ribs, multiple fractures Disposition: Home, Self-Care Instructions: DI for Acute Pain -- Adult Additional Instructions: Please follow up with your primary care physician in 2-3 days for further management. You will require further investigation and monitoring of your rib fractures, please discuss with your primary care physician. Please take the toradol and lidocaine patches for comfort. Please return for any concerning symptoms such as difficulty breathing, worsening chest pain or any other concerning symptoms. Prescriptions: Ketorolac Tromethamine [Toradol 10mg tablet] 10 mg PO Q4HP PRN 7 Days #15 tab MDD 40mg/day PRN Reason: Severe Pain Transmission Status: Received by [facility] Lidocaine 1 each TP NEEDED PRN 10 Days #10 patch PRN Reason: Severe Pain Transmission Status: Received by [facility] Referrals: Alni Bee MD [Primary Care Provider] - Attestation: On 08/16/21, the high probability of a clinically significant, sudden or life threatening deterioration of the following system(s) required my full and direct attention, intervention and personal management. The time I documented below is in addition to time spent performing reported procedures but includes the following listed in this critical care notation. Medical Decision Making - Kj Inquiry Pt receiving controlled substance: No - Lab Data Result diagrams: 08/16/21 18:44 08/16/21 18:44 <Darian Lentz - Last Filed: 08/16/21 19:45> - Medical Records Medical records reviewed: Yes: I reviewed the patient's medical records. - Kj Inquiry Pt receiving controlled substance: No - Lab Data Lab results reviewed: Yes: I reviewed the patient's lab results. Result diagrams: 08/16/21 18:44 08/16/21 18:44 <Radha Henson - Last Filed: 08/18/21 21:32> Vital Signs: 08/16/21 18:02 08/16/21 20:36 Temperature 98.3 F 98.3 F Temperature Source Oral Oral Pulse Rate 99 H Pulse Rate [Radial] 96 H Respiratory Rate 20 18 Blood Pressure 190/98 H Blood Pressure [Right Arm] 150/90 H Blood Pressure Mean [Right Arm] 110 Blood Pressure Source Automatic Cuff Blood Pressure Position Sitting Blood Pressure Position [Right Arm] Sitting 02 Sat by Pulse Oximetry 96 Oxygen Delivery Method Room Air Room Air - Lab Data Lab Results 08/16/21 18:44: WBC 11.5 H, RBC 4.27, Hgb 12.7, Hct 40.1, MCV 93.9, MCH 29.7, MCHC 31.7 L, RDW 13.8, Plt Count 253, MPV 9.6, Neut % (Auto) 58.9, Lymph % (Auto) 28.9, [place] % (Auto) 7.2, Eos % (Auto) 3.0, Baso % (Auto) 1.9, Neut # (Auto) 6.8, Lymph # (Auto) 3.3, [place] # (Auto) 0.8, Eos # (Auto) 0.4, Baso # (Auto) 0.2 08/16/21 18:44: D-Dimer 0.79 H 08/16/21 18:44: Sodium 136, Potassium 3.9, Chloride 103, Carbon Dioxide 30, Anion Gap 6.9, BUN 12, Creatinine 0.60, Estimated Creat Clear 121, Estimated GFR 104, Est GFR ( Amer) 126, Glucose 95, Calcium 9.2, Total Bilirubin 0.1 L, AST 26, ALT 17, Alkaline Phosphatase 101, Total Protein 6.7, Albumin 3.8, Globulin 2.9, Albumin/Globulin Ratio 1.3 Orders (Tests/Meds): ED MEDICATIONS Discontinued Medications Generic Name Dose Route Start Last Admin Trade Name Freq PRN Reason Stop Dose Admin Iopamidol 100 ml 08/16/21 19:47 08/16/21 19:48 Iopamidol-370 (76%);100ml Bottle IV 08/16/21 19:48 100 ml ONCE ONE Administration Ketorolac Tromethamine 15 mg 08/16/21 20:26 08/16/21 20:28 Ketorolac 30mg/Ml Vial IV 08/16/21 20:27 15 mg ONCE ONE Administration Lidocaine 1 each 08/16/21 20:16 08/16/21 20:18 Lidocaine 5% Transdermal Patch TP 08/16/21 20:17 Not Given ONCE ONE Morphine Sulfate 4 mg 08/16/21 20:02 Morphine 4mg/Ml Syringe IV 09/15/21 20:01 Q1H
--- NOTE | 2021-08-16 18:30 | PC.NURSE ---
pt returned from xr
[2021-08-16 19:00] LABS: Basophils # 0.2 K/mm3 (0-0.2); Basophils % 1.9 % (0.1-2.0); Eosinophils # 0.4 K/mm3 (0.0-0.4); Hematocrit 40.1 % (37.0-47.0); Hemoglobin 12.7 g/dL (12.2-16.2); Lymphocytes # 3.3 K/mm3 (0.7-4.5); Lymphocytes % 28.9 % (10-50); Mean Corpuscular HGB Conc 31.7 g/dL (31.8-35.4); Mean Corpuscular Hemoglobin 29.7 pg (27.0-31.2); Mean Corpuscular Volume 93.9 fl (81-99); Mean Platelet Volume 9.6 fl (7.4-10.4); Monocytes # 0.8 K/mm3 (0.1-1.0); Monocytes % 7.2 % (1.7-9.3); Neutrophils # 6.8 K/mm3 (1.8-7.8); Neutrophils % 58.9 % (37.0-80.0); Platelet Count 253 K/mm3 (142-424); Red Blood Count 4.27 M/mm3 (4.20-5.40); Red Cell Distribution Width 13.8 % (11.5-17.5); White Blood Count 11.5 K/mm3 (4.8-10.8)
[2021-08-16 19:13] LABS: Alanine Aminotransferase 17 U/L (12-78); Albumin Level 3.8 g/dl (3.5-5.0); Albumin/Globulin Ratio 1.3 (1.1-1.8); Alkaline Phosphatase 101 U/L (38-126); Anion Gap 6.9 mEq/L (5-15); Aspartate Amino Transferase 26 U/L (14-36); Blood Urea Nitrogen 12 mg/dl (7-17); Calcium 9.2 mg/dl (8.4-10.2); Carbon Dioxide 30 mmol/L (22.0-30.0); Chloride 103 mmol/L (98-107); Creatinine Clearance Estimated 121 mL/min (50-200); Estimated Glomerular Filt Rate 104 ml/min (>60); GFR (African American) 126 ML/MIN (>60); Globulin 2.9 g/dL (1.3-3.2); Glucose 95 mg/dl (74-100); Potassium 3.9 mmoL/L (3.5-5.1); Sodium 136 mmol/L (136-145); Total Protein,Serum 6.7 g/dl (6.3-8.2)
[2021-08-16 19:14] LABS: Bilirubin,Total 0.1 mg/dl (0.2-1.3)
[2021-08-16 19:19] LABS: D-Dimer 0.79 ug/mL (0.0-0.5)
--- NOTE | 2021-08-16 19:24 | CT_ITS ---
PROCEDURE INFORMATION: Exam: CTA Chest With Contrast Exam date and time: 08/16/2021 7:24 PM Age: 56 years old Clinical indication: Pain; Right-sided; Additional info: RT side cp elev ddimer TECHNIQUE: Imaging protocol: Computed tomographic angiography of the chest with contrast. 3D rendering (Not supervised by radiologist): MIP and/or 3D reconstructed images were created by the technologist. Radiation optimization: All CT scans at this facility use at least one of these dose optimization techniques: automated exposure control; mA and/or kV adjustment per patient size (includes targeted exams where dose is matched to clinical indication); or iterative reconstruction. Contrast material: ISOVUE 370; Contrast volume: 100 ml; Contrast route: INTRAVENOUS (IV); COMPARISON: CR XR CHEST 2V 08/16/2021 6:20 PM FINDINGS: Pulmonary arteries: No CT evidence of pulmonary embolus. Aorta: Unremarkable. No aortic aneurysm. No aortic dissection. Lungs: Unremarkable. No consolidation. No masses. Pleural spaces: Unremarkable. No pneumothorax. No pleural effusion. Heart: Unremarkable. No cardiomegaly. No pericardial effusion. Lymph nodes: Unremarkable. No enlarged lymph nodes. Adrenal glands: Bilateral adrenal hyperplasia. 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 Soft tissues: Unremarkable. IMPRESSION: 1. No CT evidence of pulmonary embolus. 2. Nonunion rib fractures of the 4th, 5th, 6th, and acute fracture 7th right lateral rib.
[2021-08-16 20:36] VITALS: BP 190/98; PULSE 99; RESP 18; TEMP 36.8; O2SAT 98
== END 2021-08-16 20:37 | disposition home or self-care (01) ==
PROVIDERS: Emergency Provider Emergency Medicine; PCP Emergency Medicine
DX: M84.48XA Pathological fracture, other site, initial encounter for fracture (principal); R07.89 Other chest pain; K21.9 Gastro-esophageal reflux disease without esophagitis; E78.5 Hyperlipidemia, unspecified
CPT/HCPCS: 71046; 71275; 80053; 85025; 85378; 93005; 96374; 99282; Q9967

== ENCOUNTER → 2021-10-15 12:13 | Outpatient (CLI) | payer MEDICARE, OTHER, SELFPAY ==
[2021-10-15 12:51] LABS: Basophils # 0.1 K/mm3 (0-0.2); Basophils % 0.9 % (0.1-2.0); Eosinophils # 0.3 K/mm3 (0.0-0.4); Eosinophils % 2.8 % (0.1-12.0); Hematocrit 44.5 % (37.0-47.0); Hemoglobin 14.1 g/dL (12.2-16.2); Lymphocytes # 3.6 K/mm3 (0.7-4.5); Lymphocytes % 39.4 % (10-50); Mean Corpuscular HGB Conc 31.8 g/dL (31.8-35.4); Mean Corpuscular Hemoglobin 29.1 pg (27.0-31.2); Mean Corpuscular Volume 91.5 fl (81-99); Mean Platelet Volume 9.5 fl (7.4-10.4); Monocytes # 0.5 K/mm3 (0.1-1.0); Monocytes % 5.4 % (1.7-9.3); Neutrophils # 4.7 K/mm3 (1.8-7.8); Neutrophils % 51.4 % (37.0-80.0); Platelet Count 257 K/mm3 (142-424); Red Blood Count 4.86 M/mm3 (4.20-5.40); Red Cell Distribution Width 13.6 % (11.5-17.5); White Blood Count 9.1 K/mm3 (4.8-10.8)
[2021-10-15 13:25] LABS: Alanine Aminotransferase 24 U/L (12-78); Albumin Level 4.3 g/dl (3.5-5.0); Albumin/Globulin Ratio 1.6 (1.1-1.8); Alkaline Phosphatase 93 U/L (38-126); Anion Gap 9.2 mEq/L (5-15); Aspartate Amino Transferase 33 U/L (14-36); Bilirubin,Total 0.5 mg/dl (0.2-1.3); Blood Urea Nitrogen 15 mg/dl (7-17); Calcium 8.8 mg/dl (8.4-10.2); Carbon Dioxide 31 mmol/L (22.0-30.0); Chloride 103 mmol/L (98-107); Chol/HDL Ratio 2.4 (1-3.5); Cholesterol 182 mg/dl (140-200); Estimated Glomerular Filt Rate 128 ml/min (>60); GFR (African American) 155 ML/MIN (>60); Globulin 2.7 g/dL (1.3-3.2); Glucose 87 mg/dl (74-100); HDL Cholesterol 75 mg/dl (40-60); Potassium 4.2 mmoL/L (3.5-5.1); Sodium 139 mmol/L (136-145); Triglycerides 64 mg/dl (30-150); VLDL Cholesterol 13 mg/dL (0-40)
[2021-10-15 13:37] LABS: Direct LDL Cholesterol 91.27 mg/dL (100-129)
[2021-10-15 13:42] LABS: 25-OH Vitamin D, Total 52.7 ng/mL (30-100)
[2021-10-15 13:43] LABS: T4 (Thyroxine) 8.4 ug/dl (5.53-11.0)
[2021-10-15 13:56] LABS: Thyroid Stimulating Hormone 1.47 uIU/mL (0.465-4.68)
== END ==
PROVIDERS: PCP Nurse Practitioner Family; Referring Provider Nurse Practitioner Family; Visit Provider Nurse Practitioner Family
DX: E78.5 Hyperlipidemia, unspecified (principal); E66.9 Obesity, unspecified; E55.9 Vitamin D deficiency, unspecified; I10 Essential (primary) hypertension; Z68.32 Body mass index [BMI] 32.0-32.9, adult
CPT/HCPCS: 36415; 80053; 80061; 82306; 84436; 84443; 85025

== ENCOUNTER 2021-11-10 07:39 | Emergency (ER) | payer MEDICARE, MEDICAID, SELFPAY ==
[2021-11-10 07:40] VITALS: BMI 31.2
[2021-11-10 07:48] VITALS: BP 162/75; PULSE 111; RESP 16; TEMP 36.8; O2SAT 98; BMI 31.2
--- NOTE | 2021-11-10 07:48 | XR_ITS ---
FINAL REPORT CLINICAL HISTORY: pain. no trauma FINDINGS: 3 views of the left shoulder were obtained. There is a comminuted displaced fracture of the mid left clavicle. There is 2 shaft widths of inferior displacement of the distal fracture fragment. There are mild hypertrophic changes at the AC joint. There are no soft tissue abnormalities. IMPRESSION: Comminuted displaced mid left clavicle fracture. Reviewed, Interpreted and Dictated by Lauri Vogel MD Transcribed by Cliff Dhillon Authenticated by Lauri Vogel MD on 11/10/2021 09:18:40 AM [facility]
--- NOTE | 2021-11-10 07:48 | PC.NURSE ---
radiology called for xray
--- NOTE | 2021-11-10 07:55 | PC.NURSE ---
pt returned from rad.
--- NOTE | 2021-11-10 07:58 | PC.NURSE ---
ED MD at
--- NOTE | 2021-11-10 08:16 | PC.NURSE ---
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 Tello
--- NOTE | 2021-11-10 08:17 | HMH.EDGENADL ---
ED Disposition Clinical Impression: Clavicle fracture Qualifiers: Encounter type: initial encounter Clavicle location: shaft Fracture type: closed Fracture alignment: displaced Laterality: left Qualified Code(s): S42.022A - Displaced fracture of shaft of left clavicle, initial encounter for closed fracture Disposition: Home, Self-Care Condition on Discharge: Good Additional Instructions: Follow-up in clinic with Dr. Tello tomorrow. Take Sarcoxie as needed for severe pain. Keep left arm in splint for comfort. Return to ED with new, worsening, concerning symptoms. Referrals: Alin Bee MD [Primary Care Provider] - Jann Tello JR, MD [Physician] - (closed left medial clavicle fracture with displacement) - Critical Care Critical Care Time: No Attestation: On 11/10/21, the high probability of a clinically significant, sudden or life threatening deterioration of the following system(s) required my full and direct attention, intervention and personal management. The time I documented below is in addition to time spent performing reported procedures but includes the following listed in this critical care notation. Medical Decision Making - Medical Records Medical records reviewed: Yes: I reviewed the patient's medical records. - Kj Inquiry Pt receiving controlled substance: No Vital Signs: 11/10/21 07:48 Temperature 98.3 F Temperature Source Oral Pulse Rate [Radial] 111 H Respiratory Rate 16 Blood Pressure [Right Arm] 162/75 H Blood Pressure Mean [Right Arm] 104 Blood Pressure Position [Right Arm] Sitting 02 Sat by Pulse Oximetry 98 Oxygen Delivery Method Room Air Orders (Tests/Meds): ED MEDICATIONS Generic Name Dose Route Start Last Admin Trade Name Freq PRN Reason Stop Dose Admin Ondansetron HCl 4 mg 11/10/21 08:16 11/10/21 08:25 Ondansetron 4mg Odt SL 12/10/21 08:15 4 mg Q6HP PRN Administration Nausea And Vomiting Discontinued Medications Generic Name Dose Route Start Last Admin Trade Name Freq PRN Reason Stop Dose Admin Hydrocodone Bitart/Acetaminophen 1 tab 11/10/21 08:15 11/10/21 08:25 Hydrocodone/Apap 5/325 Mg Tablet PO 11/10/21 08:16 1 tab ONCE ONE Administration - Radiology Data #1 Image(s): Shoulder, Clavicle Image Reviewed: Yes I reviewed the patient's radiology results, Yes I reviewed the patient's radiology image FINDINGS: 3 views of the left shoulder were obtained. There is a comminuted displaced fracture of the mid left clavicle. There is 2 shaft widths of inferior displacement of the distal fracture fragment. There are mild hypertrophic changes at the AC joint. There are no soft tissue abnormalities. IMPRESSION: Comminuted displaced mid left clavicle fractur Medical Decision Narrative: 56-year-old female with past medical history of osteoporosis presenting to the ED with left clavicle pain, nontraumatic. Differential diagnoses include musculoskeletal strain, clavicle fracture, shoulder dislocation, neurovascular injury, contusion, humeral head fracture. Given this work-up will include x-rays of the left clavicle, physical exam. Labs not currently dictated. Patient was given 5 mg oral Sarcoxie for analgesia, Zofran for nausea. X-ray with a comminuted, displaced left medial clavicle fracture. Given displacement with overlying swelling will speak with orthopedic team for close follow-up. Will place patient in sling for comfort. Made appointment for patient to be seen tomorrow morning in clinic with Dr. Tello. She was discharged with short course of oral Sarcoxie for analgesia, instructed patient to continue wearing sling for comfort and to return with any new or worsening symptoms. She is comfortable with this plan. General Adult HPI - General Chief complaint: PAIN Stated complaint: lt shoulder pain Time Seen by Provider: 11/10/21 08:17 Mode of Arrival: Ambulatory Source of Information: Patient Limitations: No Limitations
--- NOTE | 2021-11-10 08:28 | PC.NURSE ---
ED MD at for update on POC
--- NOTE | 2021-11-10 09:17 | PC.NURSE ---
Called radiology and spoke with [facility] to have the radiologist read the xray since its been over an hour since it has been taken
[2021-11-10 09:25] VITALS: BP 132/74; PULSE 74; RESP 16; TEMP 36.6; O2SAT 98
== END 2021-11-10 09:27 | disposition home or self-care (01) ==
PROVIDERS: Emergency Provider Emergency Medicine; PCP Emergency Medicine
DX: S52.502A Unspecified fracture of the lower end of left radius, initial encounter for closed fracture; K21.9 Gastro-esophageal reflux disease without esophagitis; E78.5 Hyperlipidemia, unspecified; F17.210 Nicotine dependence, cigarettes, uncomplicated; Z79.1 Long term (current) use of non-steroidal anti-inflammatories (NSAID); Z79.51 Long term (current) use of inhaled steroids; Z79.899 Other long term (current) drug therapy; W19.XXXA Unspecified fall, initial encounter
CPT/HCPCS: 73030; 99283

== ENCOUNTER → 2021-11-25 11:17 | Outpatient (CLI) | payer MEDICARE, MEDICAID, SELFPAY ==
--- NOTE | 2021-11-25 11:21 | XR_ITS ---
FINAL REPORT CLINICAL HISTORY: clavicle fx FINDINGS: LEFT CLAVICLE 2 views were obtained. There is a comminuted fracture of the middle 1/3 of the clavicle with 21 mm of inferior displacement of the main distal fracture fragment. There are mild degenerative changes of the acromioclavicular joint. There is no soft tissue abnormality. IMPRESSION: Comminuted fracture of the middle 1/3 of the clavicle with inferior displacement as described. Reviewed, Interpreted and Dictated by Harish Pandey III, MD Transcribed by Essence Rojas Authenticated by Harish Pandey III, MD on 11/25/2021 12:24:20 PM [facility]
== END ==
PROVIDERS: PCP Emergency Medicine; Visit Provider Orthopaedic Surgery
DX: S42.002A Fracture of unspecified part of left clavicle, initial encounter for closed fracture (principal)
CPT/HCPCS: 73000

== ENCOUNTER → 2021-12-23 12:26 | Outpatient (CLI) | payer MEDICARE, MEDICAID, SELFPAY ==
--- NOTE | 2021-12-23 12:31 | XR_ITS ---
FINAL REPORT CLINICAL HISTORY: clavicle fx FINDINGS: LEFT CLAVICLE Two views of the left clavicle were obtained and compared to prior exam from 11/25/2021. Again seen is a comminuted, displaced fracture of the mid left clavicle with 3.5 cm overlap of the fracture fragments. Distal fracture fragment is inferiorly displaced by 2 cm. Fracture margins are less sharply defined than on prior exam consistent with interval healing. There are mild hypertrophic changes of the acromioclavicular joint. IMPRESSION: Mid left clavicle fracture with interval healing. Reviewed, Interpreted and Dictated by Lauri Vogel MD Transcribed by Dorcas Peña Authenticated by Lauri Vogel MD on 12/23/2021 01:56:24 PM [facility]
== END ==
PROVIDERS: PCP Emergency Medicine; Visit Provider Orthopaedic Surgery
DX: S42.002A Fracture of unspecified part of left clavicle, initial encounter for closed fracture (principal)
CPT/HCPCS: 73000

== ENCOUNTER 2022-01-28 20:39 | Emergency (ER) | payer MEDICARE, MEDICAID, SELFPAY ==
[2022-01-28 20:39] VITALS: BP 143/89; PULSE 92; RESP 19; TEMP 36.7; O2SAT 98; BMI 30.2
--- NOTE | 2022-01-28 20:50 | XR_ITS ---
PROCEDURE INFORMATION: Exam: XR Right Knee Exam date and time: 01/28/2022 9:29 PM Age: 56 years old Clinical indication: Pain and injury or trauma; Blunt trauma; Knee; Right; Patient HX: Fall off ladder TECHNIQUE: Imaging protocol: XR Right knee. Views: 3 views. COMPARISON: No relevant prior studies available. FINDINGS: Bones/joints: No evidence of acute fracture or dislocation. No erosive disease. No significant degenerative change. Soft tissues: Normal. IMPRESSION: Normal right knee.
--- NOTE | 2022-01-28 21:58 | HMH.EDGENADL ---
ED Disposition Clinical Impression: Knee contusion Disposition: Home, Self-Care Condition on Discharge: Good Instructions: DI for Contusion Additional Instructions: Use the knee immobilizer for stability while ambulating otherwise weight-bear as tolerated return to the ER for any new or worsening symptoms. Referrals: Alin Bee MD [Primary Care Provider] - - Critical Care Critical Care Time: No Attestation: On 01/28/22, the high probability of a clinically significant, sudden or life threatening deterioration of the following system(s) required my full and direct attention, intervention and personal management. The time I documented below is in addition to time spent performing reported procedures but includes the following listed in this critical care notation. Medical Decision Making - Medical Records Medical records reviewed: Yes: I reviewed the patient's medical records. - Kj Inquiry Pt receiving controlled substance: No Vital Signs: 01/28/22 20:39 Temperature 98.1 F Temperature Source Oral Pulse Rate [Right] 92 H Respiratory Rate 19 Blood Pressure [Right Arm] 143/89 H Blood Pressure Mean [Right Arm] 107 Blood Pressure Source [Right Arm] Automatic Cuff 02 Sat by Pulse Oximetry 98 Oxygen Delivery Method Room Air Medical Decision Narrative: 56-year-old female who presents after falling 4 feet onto her right side from a ladder. She has pain over the right knee isolated symptom at this time. Remainder of tertiary exam is benign. X-ray demonstrates no acute abnormalities. She will be given a knee immobilizer for ambulation and crutches and discharged home in good condition she currently has follow-up scheduled for another abnormality with orthopedics and this will be retained as follow-up as well. General Adult HPI - General Chief complaint: Extremity Injury, Lower Stated complaint: [id number] Right knee injury Time Seen by Provider: 01/28/22 21:58 Mode of Arrival: Family Vehicle Source of Information: Patient Limitations: No Limitations Description of Symptoms (Recalled from ER Triage Doc. by RN): Pt was on a 4 ft ladder when the ladder legs twisted under her and she fell off of it. She c/o pain to R knee that radiates down to calf. States she landed on her bottom and R knee. She denies hitting her head no LOC. Denies chest pain, dysnea, neck pain, or chest pain. SHe has a known L shoulder fx 2 mn ago. - History of Present Illness HPI narrative: 56-year-old female fell from a ladder at a height of 4 feet onto her right side landing on her hip and knee. She is having pain only over the right knee on the lateral aspect. Pain is worse with ambulation and at that time is 5 out of 10 otherwise it is relatively stable causing minimal pain. She denies lateral chest wall pain denies pain in her hip. No back pain neck pain denies head trauma and LOC. This at approximately 1 hour before arrival. - Related Data Home Medications Medication Instructions Recorded Confirmed polyethylene glycoL 3350 17 g PO DAILY 08/03/20 01/25/22 [Polyethylene Glycol 3350] Previous Rx's Medication Instructions Recorded naproxen 500 mg tablet 500 mg PO BID PRN #60 tab 07/21/21 alendronate 70 mg tablet 70 mg PO WEEKLY #12 tab 08/23/21 atorvastatin 10 mg tablet See Rx Instructions .ROUTE 08/23/21 .COMPLEX #90 tab calcium carbonate 600 mg-vitamin 1 tab PO DAILY #90 tab 08/23/21 D3 10 mcg (400 unit) tablet cholecalciferol (vitamin D3) 1,250 50,000 unit PO WEEKLY #14 cap 08/23/21 mcg (50,000 unit) capsule cholecalciferol (vitamin D3) 25 25 mcg PO DAILY #30 cap 08/23/21 mcg (1,000 unit) capsule fluticasone propionate 50 See Rx Instructions .ROUTE 08/23/21 mcg/actuation nasal .COMPLEX #16 g spray,suspension nicotine 21 mg/24 hr daily 1 patch TRANSDERMA Q24H #28 each 09/12/21 transdermal patch lidocaine 4 % topical patch 1 patch TOPICAL NEEDED PRN 10 10/11/21 Days #10 patch omeprazole
[2022-01-28 23:00] VITALS: BP 140/80; PULSE 85; RESP 20; TEMP 36.7; O2SAT 96
== END 2022-01-28 23:19 | disposition home or self-care (01) ==
PROVIDERS: Emergency Provider Student in an Organized Health Care Education/Training Program; PCP Emergency Medicine
DX: S80.01XA Contusion of right knee, initial encounter (principal); K21.9 Gastro-esophageal reflux disease without esophagitis; E78.5 Hyperlipidemia, unspecified; F41.9 Anxiety disorder, unspecified; F17.210 Nicotine dependence, cigarettes, uncomplicated; Z79.1 Long term (current) use of non-steroidal anti-inflammatories (NSAID); Z79.51 Long term (current) use of inhaled steroids; Z79.899 Other long term (current) drug therapy; Z82.61 Family history of arthritis; Z82.62 Family history of osteoporosis; W11.XXXA Fall on and from ladder, initial encounter
CPT/HCPCS: 73562; 99283

== ENCOUNTER → 2022-05-08 09:08 | Outpatient (CLI) | payer MEDICARE, MEDICAID, SELFPAY ==
--- NOTE | 2022-05-08 09:09 | XR_ITS ---
FINAL REPORT TECHNIQUE: Bone densitometry calculations of the lumbar spine and bilateral hips were obtained. CLINICAL HISTORY: . post menopausal FINDINGS: DEXA BONE DENSITY AXIAL SKELETON Using L1-4, the bone mineral density of the spine is 0.645 g/cm2, corresponding to T-score of -3.7. Using the left hip, the bone mineral density of the femoral neck is 0.699 g/cm2, corresponding to a T-score of -2.0. Using the right hip, the bone mineral density of the femoral neck is 0.631 g/cm2, corresponding to a T-score of -2.0. NOTE: T-score: Standard deviation compared with peak bone mass of young adult mean. *Following the recommendations of the International Society of Bone Densitometry, classification of hip BMD is based on the lower of two T-scores; total hip or femoral neck. IMPRESSION: Osteoporosis: Lowest T-score is at or below -2.5. This patient's T-score meets the World Health Organization criteria for osteoporosis. Reviewed, Interpreted and Dictated by Lauri Vogel MD Transcribed by Essence Rojas Authenticated and . [facility]
== END ==
PROVIDERS: PCP Emergency Medicine; Visit Provider Obstetrics & Gynecology
DX: M81.0 Age-related osteoporosis without current pathological fracture (principal)
CPT/HCPCS: 77080

== ENCOUNTER → 2022-10-18 07:42 | Outpatient (CLI) | payer MEDICARE, MEDICAID, SELFPAY ==
--- NOTE | 2022-10-18 07:42 | MM_ITS ---
PROCEDURE INFORMATION: Exam: MG Bilateral Screening 3D Mammography Exam date and time: 10/18/2022 7:35 AM Age: 57 years old Clinical indication: Screening examination TECHNIQUE: Imaging protocol: Bilateral Screening tomosynthesis and 2D mammography including computer-aided detection (CAD) when performed. COMPARISON: 1. MG MM DIG SCREENING MAMM BI W/CAD 12/24/2020 2:40 PM 2. MG DIG MAMM-SCREEN TOM 03/03/2019 11:12 AM FINDINGS: MAMMOGRAPHY: Breast composition: There are scattered areas of fibroglandular density. Mass: 0.6 cm mass in the posterior third of the left approximate 12 o'clock axis Architectural distortion: None. Calcifications: No suspicious calcifications. Asymmetric density: None. Skin thickening: None. Axillary adenopathy: None. IMPRESSION: Patient to be recalled for left breast ultrasound for further evaluation of a left breast mass. ASSESSMENT: BI-RADS Category 0: Incomplete- Need Additional Imaging Evaluation and/or Prior Mammograms for Comparison
== END ==
PROVIDERS: PCP Emergency Medicine; Visit Provider Obstetrics & Gynecology
DX: Z12.31 Encounter for screening mammogram for malignant neoplasm of breast (principal)
CPT/HCPCS: 77063; 77067

== ENCOUNTER → 2022-10-30 10:27 | Outpatient (CLI) | payer MEDICARE, MEDICAID, SELFPAY ==
--- NOTE | 2022-10-30 10:27 | US_ITS ---
PROCEDURE INFORMATION: Exam: US Left Breast, Complete Exam date and time: 10/30/2022 11:04 AM Age: 57 years old Clinical indication: Patient recalled for further evaluation of a left breast mass TECHNIQUE: Imaging protocol: Complete ultrasound of all four quadrants of the left breast and the retroareolar regions, including ultrasound of the axilla when performed. COMPARISON: MG MM DIG SCREENING MAMM BI W/CAD 10/18/2022 7:35 AM FINDINGS: Breast: .Sonographic images of the left breast including the retroareolar region, all 4 quadrants and the axilla demonstrates a fat containing benign-appearing in intramammary lymph node in the 10 o'clock axis 8 cm from the nipple measuring 4.5 cm in greatest dimension. It is likely this correlates with the finding on mammography. An additional benign intramammary lymph node is noted in the left 2 o'clock axis 5 cm from the nipple measuring 0.4 cm in greatest dimension.. No architectural distortion or acoustical shadowing. No skin thickening or axillary adenopathy. IMPRESSION: mass on screening mammography likely correlates with a benign lymph node on sonography. A precautionary six-month follow-up diagnostic left mammogram is recommended to ensure stability over time ASSESSMENT: BI-RADS Category 3: Probably benign
== END ==
PROVIDERS: PCP Emergency Medicine; Visit Provider Obstetrics & Gynecology
DX: R92.8 Other abnormal and inconclusive findings on diagnostic imaging of breast (principal)
CPT/HCPCS: 76641

== ENCOUNTER → 2023-04-06 14:36 | Outpatient (CLI) | payer MEDICARE, MEDICAID, SELFPAY ==
[2023-04-06 14:04] LABS: Basophils # 0.1 K/mm3 (0-0.2); Basophils % 0.7 % (0.1-2.0); Eosinophils # 0.3 K/mm3 (0.0-0.4); Eosinophils % 4.1 % (0.1-12.0); Hematocrit 42.8 % (37.0-47.0); Hemoglobin 13.5 g/dL (12.2-16.2); Lymphocytes # 3.3 K/mm3 (0.7-4.5); Lymphocytes % 44.7 % (10-50); Mean Corpuscular HGB Conc 31.5 g/dL (31.8-35.4); Mean Corpuscular Hemoglobin 30.5 pg (27.0-31.2); Mean Corpuscular Volume 96.7 fl (81-99); Mean Platelet Volume 11.4 fl (7.4-10.4); Monocytes # 0.6 K/mm3 (0.1-1.0); Monocytes % 7.7 % (1.7-9.3); Neutrophils # 3.2 K/mm3 (1.8-7.8); Neutrophils % 42.8 % (37.0-80.0); Platelet Count 213 K/mm3 (142-424); Red Blood Count 4.43 M/mm3 (4.20-5.40); Red Cell Distribution Width 13.8 % (11.5-17.5); White Blood Count 7.4 K/mm3 (4.8-10.8)
[2023-04-06 15:53] LABS: 25-OH Vitamin D, Total 30.8 ng/mL (30-100)
[2023-04-06 19:30] LABS: Alanine Aminotransferase 21 U/L (12-78); Albumin Level 4.1 g/dl (3.5-5.0); Albumin/Globulin Ratio 1.6 (1.1-1.8); Alkaline Phosphatase 102 U/L (38-126); Anion Gap 11.5 mEq/L (5-15); Aspartate Amino Transferase 27 U/L (14-36); Bilirubin,Total 0.2 mg/dl (0.2-1.3); Blood Urea Nitrogen 11 mg/dl (7-17); Carbon Dioxide 28 mmol/L (22.0-30.0); Chloride 105 mmol/L (98-107); Chol/HDL Ratio 2.2 (1-3.5); Cholesterol 173 mg/dl (140-200); Estimated Glomerular Filt Rate 86 ml/min (>60); GFR (African American) 104 ML/MIN (>60); Globulin 2.6 g/dL (1.3-3.2); Glucose 96 mg/dl (74-100); HDL Cholesterol 77 mg/dl (40-60); Potassium 4.5 mmoL/L (3.5-5.1); Sodium 140 mmol/L (136-145); Total Protein,Serum 6.7 g/dl (6.3-8.2); Triglycerides 51 mg/dl (30-150); VLDL Cholesterol 10 mg/dL (0-40)
[2023-04-06 19:41] LABS: Direct LDL Cholesterol 78.65 mg/dL (100-129)
[2023-04-06 20:00] LABS: Thyroid Stimulating Hormone 1.11 uIU/mL (0.465-4.68)
== END ==
PROVIDERS: PCP Emergency Medicine; Visit Provider Emergency Medicine
DX: R09.1 Pleurisy (principal); F41.9 Anxiety disorder, unspecified; E66.3 Overweight; M81.0 Age-related osteoporosis without current pathological fracture; K58.9 Irritable bowel syndrome, unspecified
CPT/HCPCS: 80053; 80061; 82306; 84436; 84443; 85025

== ENCOUNTER → 2023-05-02 10:12 | Outpatient (CLI) | payer MEDICARE, MEDICAID, SELFPAY | PROVIDERS: PCP Emergency Medicine; Visit Provider Emergency Medicine | DX: R82.90 Unspecified abnormal findings in urine (principal); B96.29 Other Escherichia coli [E. coli] as the cause of diseases classified elsewhere | CPT/HCPCS: 87086; 87088; 87186 ==

== ENCOUNTER → 2023-05-09 10:00 | Outpatient (CLI) | payer MEDICARE, MEDICAID, SELFPAY ==
[2023-05-09 18:52] LABS: Microscopic, Urine URINE MICROSCOPIC (MICROSCOPIC)
[2023-05-09 21:40] LABS: Appearance,Urine CLEAR (Clear); Bilirubin,Urine Negative (Negative); Blood, Urine Negative (Negative); Color,Urine YELLOW (Yellow); Glucose,Urine (UA) Negative (Negative); Ketones,Urine Negative (Negative); Leukocyte Esterase,Urine Negative (Negative); Nitrate,Urine Negative (Negative); PH,Urine 6.5 (5.0-8.5); Protein,Urine Negative (Negative); Specific Gravity, Urine <= 1.005 (1.005-1.030); Urobilinogen,Urine 0.2 EU/dl (0.2)
[2023-05-09 22:01] LABS: Bacteria,Urine Trace /lpf
== END ==
PROVIDERS: PCP Emergency Medicine; Visit Provider Emergency Medicine
DX: N39.0 Urinary tract infection, site not specified (principal); R10.2 Pelvic and perineal pain
CPT/HCPCS: 81001; 87086

== ENCOUNTER → 2023-05-18 13:45 | Outpatient (CLI) | payer MEDICARE, MEDICAID, SELFPAY ==
--- NOTE | 2023-05-18 13:46 | US_ITS ---
PROCEDURE INFORMATION: Exam: US Left Breast, Complete Exam date and time: 05/18/2023 1:57 PM Age: 58 years old Clinical indication: Short-term radiographic follow-up of a subcentimeter left breast mass TECHNIQUE: Imaging protocol: Complete ultrasound of all four quadrants of the left breast and the retroareolar regions, including ultrasound of the axilla when performed. COMPARISON: US BREAST LT COMPLETE 10/30/2022 11:04 AM FINDINGS: Breast: Sonographic images of the left breast including the retroareolar region, all 4 quadrants and the axilla do not demonstrate any solid or cystic masses. No architectural distortion or acoustical shadowing. No skin thickening or axillary adenopathy. Previously noted subcentimeter benign intramammary lymph node in the left upper outer quadrant is not seen on the current sonographic evaluation. IMPRESSION: Patient to return for a diagnostic left mammogram for further evaluation of a previously noted subcentimeter mass in the posterior left approximate 12 o'clock axis seen on mammogram dated 10/18/2022. ASSESSMENT: BI-RADS Category 0: Incomplete- Need Additional Imaging Evaluation and/or Prior Mammograms for Comparison
== END ==
PROVIDERS: PCP Emergency Medicine; Visit Provider Obstetrics & Gynecology
DX: N63.20 Unspecified lump in the left breast, unspecified quadrant (principal); R92.8 Other abnormal and inconclusive findings on diagnostic imaging of breast
CPT/HCPCS: 76641

== ENCOUNTER → 2023-05-29 13:41 | Outpatient (CLI) | payer MEDICARE, MEDICAID, SELFPAY ==
--- NOTE | 2023-05-29 13:41 | MM_ITS ---
PROCEDURE INFORMATION: Exam: MG Left Diagnostic Breast Tomosynthesis Exam date and time: 05/29/2023 1:43 PM Age: 58 years old Clinical indication: Recall following sonography 05/18/2023 for further evaluation of previously noted subcentimeter mass in the posterior left breast at approximately 12 o'clock on mammogram from 10/18/2022. TECHNIQUE: Imaging protocol: Left Diagnostic tomosynthesis and 2D mammography including computer-aided detection (CAD) when performed. Unilateral or bilateral exam. COMPARISON: 1. MG MM DIG SCREENING MAMM BI W/CAD 10/18/2022 7:35 AM 2. MG MM DIG SCREENING MAMM BI W/CAD 12/24/2020 2:40 PM 3. MG DIG MAMM-SCREEN TOM 03/03/2019 11:12 AM 4. US BREAST LT COMPLETE 05/18/2023 1:57 PM FINDINGS: MAMMOGRAPHY: Breast composition: There are scattered areas of fibroglandular densit Mass: Stable 0.6 cm oval mass in the upper inner breast, posterior 3rd, since 10/18/2022 and probably since 03/03/2019. The sub cm oval mass in the upper outer quadrant, middle to posterior 3rd, is stable since 03/03/2019. Architectural distortion: None. Calcifications: No suspicious calcifications. Asymmetric density: None. Skin thickening: None. Axillary adenopathy: None. IMPRESSION: Stable probably benign mass in the upper inner quadrant posterior 3rd since 10/18/2022, continued six-month follow-up mammography is advised with bilateral due October 2023, unless otherwise clinically indicated. ASSESSMENT: BI-RADS Category 3: Probably benign
== END ==
PROVIDERS: PCP Emergency Medicine; Visit Provider Obstetrics & Gynecology
DX: R92.8 Other abnormal and inconclusive findings on diagnostic imaging of breast; N63.20 Unspecified lump in the left breast, unspecified quadrant
CPT/HCPCS: 77061; 77065; G0279

== ENCOUNTER → 2023-07-04 08:44 | Outpatient (CLI) | payer MEDICARE, MEDICAID, SELFPAY ==
[2023-07-04 20:42] LABS: Barbiturates Screen,Urine Negative ng/ml (<200)
[2023-07-04 20:44] LABS: Amphetamine/Metha Screen,Urine Negative ng/ml (<1000); Cannabinoid Screen,Urine Negative ng/ml (<50)
[2023-07-04 20:45] LABS: Cocaine Screen,Urine Negative ng/ml (<300); Methadone Screen,Urine Negative ng/ml (<300)
[2023-07-04 20:46] LABS: Opiate Screen,Urine Negative ng/ml (<300)
[2023-07-04 20:47] LABS: Phencyclidine Screen,Urine Negative ng/ml (<25)
[2023-07-04 21:09] LABS: Benzodiazepines Screen,Urine Negative ng/ml (<200)
== END ==
PROVIDERS: PCP Emergency Medicine; Visit Provider Emergency Medicine
DX: Z79.899 Other long term (current) drug therapy (principal)
CPT/HCPCS: 80305

== ENCOUNTER 2023-09-11 11:04 | Emergency (ER) | payer MEDICARE, MEDICAID, SELFPAY ==
[2023-09-11 11:20] VITALS: BP 125/95; PULSE 86; RESP 18; TEMP 36.8; O2SAT 97; BMI 30.8
--- NOTE | 2023-09-11 11:20 | ED_ITS ---
Discharge Plan Disposition Patient Disposition: Home, Self-Care Condition: Good Prescriptions Prescriptions: New cyclobenzaprine 10 mg Tablet 10 mg PO BID PRN (Reason: Muscle Spasm) Qty: 20 0RF ibuprofen [ibuprofen] 600 mg tablet 600 mg PO Q6HP PRN (Reason: Mild Pain) Qty: 30 0RF No Action polyethylene glycol 3350 [Miralax] 17 gram/dose powder 17 g PO DAILY Qty: 510 2RF gabapentin 800 mg tablet 800 mg PO TID Qty: 90 1RF clonazepam 1 mg tablet 1 mg PO TID 30 Days Qty: 75 0RF amitriptyline 25 mg tablet 25 mg PO HS 30 Days Qty: 30 2RF alendronate 70 mg tablet 70 mg PO WEEKLY Qty: 12 2RF fluticasone furoate-vilanterol [Breo Ellipta] 100-25 mcg/dose blister with device See Rx Instructions .ROUTE .COMPLEX Qty: 60 2RF Dose Instruction: USE 1 INHALATION BY MOUTH ONCE DAILY Rx Instructions: USE 1 INHALATION BY MOUTH ONCE DAILY cholecalciferol (vitamin D3) 25 mcg (1,000 unit) capsule See Rx Instructions .ROUTE .COMPLEX Qty: 30 1RF Dose Instruction: TAKE 1 CAPSULE BY MOUTH EVERY DAY Rx Instructions: TAKE 1 CAPSULE BY MOUTH EVERY DAY cholecalciferol (vitamin D3) 1,250 mcg (50,000 unit) capsule See Rx Instructions .ROUTE .COMPLEX Qty: 14 1RF Dose Instruction: TAKE 1 CAPSULE BY MOUTH ONCE A WEEK Rx Instructions: TAKE 1 CAPSULE BY MOUTH ONCE A WEEK fluticasone propionate [Allergy Relief (fluticasone)] 50 mcg/actuation spray,suspension See Rx Instructions .ROUTE .COMPLEX Qty: 16 5RF Dose Instruction: USE 1 SPRAY IN EACH NOSTRIL ONCE DAILY Rx Instructions: USE 1 SPRAY IN EACH NOSTRIL ONCE DAILY citalopram 40 mg tablet See Rx Instructions .ROUTE .COMPLEX Qty: 90 2RF Dose Instruction: TAKE 1 TABLET BY MOUTH EVERY DAY FOR ANXIETY. Rx Instructions: TAKE 1 TABLET BY MOUTH EVERY DAY FOR ANXIETY. atorvastatin 10 mg tablet See Rx Instructions .ROUTE .COMPLEX Qty: 90 0RF Dose Instruction: TAKE ONE TABLET BY MOUTH AT BEDTIME Rx Instructions: TAKE ONE TABLET BY MOUTH AT BEDTIME bupropion HCl 150 mg tablet sustained-release 12 hr See Rx Instructions .ROUTE .COMPLEX Qty: 60 0RF Dose Instruction: TAKE 1 TABLET BY MOUTH TWICE DAILY Rx Instructions: TAKE 1 TABLET BY MOUTH TWICE DAILY omeprazole 20 mg capsule,delayed release(DR/EC) See Rx Instructions .ROUTE .COMPLEX Qty: 180 0RF Dose Instruction: TAKE 1 CAPSULE BY MOUTH TWICE DAILY FOR GERD Rx Instructions: TAKE 1 CAPSULE BY MOUTH TWICE DAILY FOR GERD cyclobenzaprine 10 mg tablet See Rx Instructions .ROUTE .COMPLEX Qty: 90 0RF Dose Instruction: TAKE 1 TABLET BY MOUTH THREE TIMES DAILY FOR MUSCLE SPASMS *MAY CAUSE DROWSINESS* Rx Instructions: TAKE 1 TABLET BY MOUTH THREE TIMES DAILY FOR MUSCLE SPASMS *MAY CAUSE DROWSINESS* Referrals Follow up/Referrals: Johnathan Kellogg DO [Primary Care Provider] - See instructions Activity Restrictions/Add. Instructions Additional Instructions/Restrictions: Go home and rest. It would be best if you rested tomorrow too. No heavy lifting. No twisting. The muscle relaxer (cyclobenzaprine--Flexeril) will make you drowsy, so don't drive or operate heavy machinery after taking it. Follow up with your regular doctor. GO TO THE ER FOR ANY WORSENING SYMPTOMS OR CONCERN. Clinical Impressions Clinical Impression: Neck strain Instructions Patient Instructions: Whiplash Discharge ED Provider[place] Jarvis Carver [facility] [place] [facility] [place] General Stated complaint: AO [id number], fell and inj neck Time Seen by Provider: 09/11/23 11:20 History of Present Illness Provider Complaint: She states that she fell last night and hit her neck on her bedside table. Since then she has had neck pain with turning her head. She denies any head injury or loss of consciousness. She denies any numbness or weakness of her extremities. She denies any headache. She came in because when she woke up this morning she has neck pain with turning and nodding her head. Related Data Previous Rx's Medication Instructions Recorded alendronate 70 mg tablet 70 mg PO WEEKLY #12 tabs 08/23/21 fluticasone furoate 100 See Rx Instructions .Route 06/22/22 mcg-vilanterol 25 mcg/dose .COMPLEX #60 ea inhalation powder (Breo Ellipta) cholecalciferol (vitamin D3) 1,250 See Rx Instructions .Route 07/24/22 mcg (50,000 unit) capsule .COMPLEX #14 caps cholecalciferol (vitamin D3) 25 See Rx Instructions .Route 07/24/22 mcg (1,000 unit) capsule .COMPLEX #30 caps fluticasone propionate 50 See Rx Instructions .Route 12/19/22 mcg/actuation nasal .COMPLEX #16 grams spray,suspension (Allergy Relief (fluticasone)) citalopram 40 mg tablet See Rx Instructions .Route 01/09/23 .COMPLEX #90 tabs polyethylene glycol 3350 17 17 g PO DAILY #510 grams 04/06/23 gram/dose oral powder (Miralax) atorvastatin 10 mg tablet See Rx Instructions .Route 05/22/23 .COMPLEX #90 ea amitriptyline 25 mg tablet 25 mg PO HS 30 days #30 tabs 08/23/23 clonazepam 1 mg tablet 1 mg PO TID 30 days #75 tabs 08/23/23 gabapentin 800 mg tablet 800 mg PO TID Pain #90 tabs 08/23/23 bupropion HCl 150 mg tablet,12 hr See Rx Instructions .Route 08/24/23 sustained-release .COMPLEX #60 tabs omeprazole 20 mg capsule,delayed See Rx Instructions .Route 09/05/23 release .COMPLEX #180 caps cyclobenzaprine 10 mg tablet See Rx Instructions .Route 09/10/23 .COMPLEX #90 tabs cyclobenzaprine 10 mg tablet 10 mg PO BID PRN Muscle Spasm #20 09/11/23 tabs ibuprofen 600 mg tablet 600 mg PO Q6HP PRN Mild Pain #30 09/11/23 tabs Allergies Allergy/AdvReac Type Severity Reaction Status Date / Time No Known Allergies Allergy Verified 09/11/23 11:28 [facility] Disclaimer: The information contained in this section may have been updated after the patient was seen, as this information can be updated by other users. Medical History Osteoporosis Social History Smoking Status: Current every day smoker tobacco type: cigarettes packs per day: 1 alcohol intake: never counseling provided: none substance use type: denies use current occupational status: other Travel in the last 8 weeks: None household members: spouse housing: house current occupational exposures/hazards: No caffeine: Yes ROS Obtained: Yes All systems reviewed & no additional complaints except as d ocumented Constitutional Constitutional: Denies chills, Denies fever(s), Denies headache(s) and Denies weakness Eyes Eyes: Denies eye discharge and Denies loss of vision ENT Ears, Nose, Mouth, and Throat: Denies disequilibrium, Denies dizziness, Denies otalgia, Denies headache(s), Reports neck pain and Denies sore throat Cardiovascular Cardiovascular: Denies chest pain and Denies syncope Respiratory Respiratory: Denies shortness of breath, Denies chest congestion, Denies cough, Denies stridor and Denies wheezing Gastrointestinal Gastrointestingal: Denies nausea or vomiting Musculoskeletal Musculoskeletal: Reports as per HPI, Denies abnormal gait, Denies back pain, Reports neck pain, Denies numbness and Denies tingling Integumentary/Breasts Skin/Breast: Denies rash Neurologic Neurologic: Reports as per HPI, Denies abnormal gait, Denies abnormal movements, Denies abnormal speech, Denies confusion, Denies disequilibrium, Denies dizziness, Denies headache(s), Denies lack of coordination, Denies loss of vision, Denies memory loss, Denies numbness, Denies paresthesias, Denies radicular pain, Denies sensory deficit, Denies syncope, Denies tingling, Denies tremor(s) and Denies weakness Allergic/Immunologic Allergic/Immunologic: Denies wheezing Physical Exam General General appearance: alert and in no apparent distress Head Head exam: atraumatic, normocephalic and normal inspection Eye Eye exam: Present normal appearance, PERRL and EOMI ENT ENT exam: Present normal exam, normal oropharynx, mucous membranes moist, TM's normal bilaterally and normal external ear exam Neck Neck exam: Present normal inspection, full ROM and trachea midline; Absent meningismus or lymphadenopathy Chest Chest inspection: Present normal inspection and symmetric chest wall rise; Absent tenderness Respiratory Respiratory exam: Present normal lung sounds bilaterally; Absent respiratory distress Cardiovascular Cardiovascular exam: Present regular rate and normal rhythm; Absent JVD Abdominal Exam Abdominal exam: Present soft and normal bowel sounds; Absent distention, tenderness or guarding Extremities Exam Extremities exam: Present normal inspection, full ROM and normal capillary refill; Absent calf tenderness Back Exam Back exam: Present normal inspection; Absent tenderness Neurological Exam Neurological exam: Present alert, oriented X3, CN II-XII intact, normal gait and reflexes normal; Absent motor sensory deficit Expanded Neurological Exam Patient oriented to: Present person, place and time Speech: Present fluid speech Cranial nerves: Normal: EOM function (II, III, IV, ), facial sensation (V), facial palsy (VII), gag reflex (IX), spinal accessory function (XI) and tongue deviation (XII) Cerebellar function: normal gait Motor strength - LUE: 5/5 Motor strength - RUE: 5/5 Motor strength - LLE: 5/5 Motor strength - RLE: 5/5 Upper motor neuron exam: Normal: deondre neglect and sensory extinction Sensory exam upper extremity: Normal: light touch and 2 point discrimination Sensory exam lower extremity: Normal: light touch and 2 point discrimination DTR: 2+: biceps (L), biceps (R), patellar (L), patellar (R), Achilles tendon (L) and Achilles tendon (R) Psychiatric Psychiatric exam: Present normal affect and normal mood Skin Skin exam: Present warm, dry, intact and normal color Lymphatic Lymphatic Findings: no adenopathy Medical Decision Making Medical Records Medical records reviewed: No I reviewed the patient's medical records. Kj Inquiry Pt receiving controlled substance: No Radiology Data #1: Image(s): C-Spine Preliminary Findings: Normal/NAD and No Fracture Seen FINAL REPORT CLINICAL HISTORY: pain FINDINGS: CERVICAL SPINE Four views demonstrate no acute fracture. The disc spaces are well preserved. There is no malalignment. The patient is edentulous. IMPRESSION: No acute process. Reviewed, Interpreted and Dictated by Lauri Vogel MD Transcribed by Letty Herron Authenticated and [facility]
[2023-09-11 13:01] VITALS: BP 125/95; PULSE 86; RESP 18; TEMP 36.8; O2SAT 97
== END 2023-09-11 13:00 | disposition home or self-care (01) ==
PROVIDERS: Emergency Provider Nurse Practitioner Family; PCP Internal Medicine
DX: S16.1XXA Strain of muscle, fascia and tendon at neck level, initial encounter (principal); W01.190A Fall on same level from slipping, tripping and stumbling with subsequent striking against furniture, initial encounter; F17.210 Nicotine dependence, cigarettes, uncomplicated; M81.0 Age-related osteoporosis without current pathological fracture
CPT/HCPCS: 72040; 99204; 99212; G0463

== ENCOUNTER 2023-09-14 08:28 | Outpatient (CLI) | payer MEDICARE, MEDICAID, SELFPAY ==
--- NOTE | 2023-09-14 08:28 | CT_ITS ---
FINAL REPORT TECHNIQUE: Before and after the administration of intravenous contrast, axial images were obtained through the abdomen by computed tomography. The study was performed with techniques to keep radiation dose as low as reasonably achievable, (ALARA). Individual dose reduction techniques using automated exposure control or adjustment of mA and/or kV according to the patient's size were employed. CLINICAL HISTORY: bilateral adrenal hyperplasia seen on CT scan COMPARISON: CTA of the chest from 08/16/2021 FINDINGS: CT ABDOMEN WITH AND WITHOUT CONTRAST The examination was performed to follow-up bilateral adrenal masses, seen on a prior CT of July 2021. Precontrast images failed to reveal any evidence of nephrolithiasis. Mild vascular calcification is present. Ovoid nodules are present in the adrenal glands bilaterally, measuring up to 1.9 cm in size. The mean attenuation of the precontrast right adrenal gland measured 17 Hounsfield units, the postcontrast measured 31 Hounsfield units, and the delayed measured 13 Hounsfield units. The main attenuation of the precontrast left adrenal gland measured 13 Hounsfield units, the immediate post contrast measured 28 Hounsfield units, and the delayed images measured 0 Hounsfield units. These findings and degree of washout are consistent with adrenal adenomas. The liver, spleen, and kidneys appear unremarkable bilaterally. No focal mass or adenopathy is identified in the abdomen. No free fluid is noted. IMPRESSION: Adrenal protocol CT of the abdomen reveal ovoid nodules in the adrenal glands bilaterally, measuring up to 1.9 cm in size on either side. The characteristics of the pre-, immediate post, and delayed images suggest that these represent bilateral adrenal adenomas. No other acute abnormality identified in the abdomen. Reviewed, Interpreted and Dictated by Lauri Vogel MD Transcribed by Gunjan Coronel Authenticated and [facility]
[2023-09-14] MEDS: IOPAMIDOL-370 (76%);100ML BOTTLE 75 ML IV (08:59)
[2023-09-14] MEDS: SODIUM CHLORIDE 0.9% 10ML SYR (RAD ONLY) 10 ML IV (08:59)
== END 2023-09-14 23:59 ==
LOC: RAD 08:28
PROVIDERS: PCP Internal Medicine; Visit Provider Internal Medicine
DX: E27.8 Other specified disorders of adrenal gland (principal)
CPT/HCPCS: 74170; Q9967

== ENCOUNTER 2023-11-05 09:11 | Emergency (ER) | payer MEDICARE, MEDICAID, SELFPAY ==
--- NOTE | 2023-11-05 09:28 | EXP.UTC ---
Discharge Plan Disposition Patient Disposition: Home, Self-Care Condition: Good Prescriptions Prescriptions: New methylprednisolone 4 mg Tablets,Dose Pack 4 mg PO DIRECTED 6 Days Qty: 21 0RF Rx Instructions: Take 1 pack as directed for 6 days No Action gabapentin 800 mg tablet 800 mg PO TID Qty: 90 1RF buspirone 5 mg tablet 5 mg PO BID 30 Days Qty: 60 2RF tizanidine 2 mg capsule 2 mg PO Q8H PRN (Reason: muscle spasticity) 30 Days Qty: 120 2RF Rx Instructions: Can take 2 at bedtime. alendronate 70 mg tablet 70 mg PO WEEKLY Qty: 12 2RF amitriptyline 25 mg tablet 50 mg PO DAILY cholecalciferol (vitamin D3) 25 mcg (1,000 unit) capsule See Rx Instructions .ROUTE .COMPLEX Qty: 30 1RF Dose Instruction: TAKE 1 CAPSULE BY MOUTH EVERY DAY Rx Instructions: TAKE 1 CAPSULE BY MOUTH EVERY DAY cholecalciferol (vitamin D3) 1,250 mcg (50,000 unit) capsule See Rx Instructions .ROUTE .COMPLEX Qty: 14 1RF Dose Instruction: TAKE 1 CAPSULE BY MOUTH ONCE A WEEK Rx Instructions: TAKE 1 CAPSULE BY MOUTH ONCE A WEEK fluticasone propionate [Allergy Relief (fluticasone)] 50 mcg/actuation spray,suspension See Rx Instructions .ROUTE .COMPLEX Qty: 16 5RF Dose Instruction: USE 1 SPRAY IN EACH NOSTRIL ONCE DAILY Rx Instructions: USE 1 SPRAY IN EACH NOSTRIL ONCE DAILY citalopram 40 mg tablet See Rx Instructions .ROUTE .COMPLEX Qty: 90 2RF Dose Instruction: TAKE 1 TABLET BY MOUTH EVERY DAY FOR ANXIETY. Rx Instructions: TAKE 1 TABLET BY MOUTH EVERY DAY FOR ANXIETY. omeprazole 20 mg capsule,delayed release(DR/EC) See Rx Instructions .ROUTE .COMPLEX Qty: 180 0RF Dose Instruction: TAKE 1 CAPSULE BY MOUTH TWICE DAILY FOR GERD Rx Instructions: TAKE 1 CAPSULE BY MOUTH TWICE DAILY FOR GERD atorvastatin 10 mg tablet See Rx Instructions .ROUTE .COMPLEX Qty: 90 0RF Dose Instruction: TAKE ONE TABLET BY MOUTH AT BEDTIME Rx Instructions: TAKE ONE TABLET BY MOUTH AT BEDTIME fluticasone furoate-vilanterol [Breo Ellipta] 100-25 mcg/dose blister with device See Rx Instructions .ROUTE .COMPLEX Qty: 60 2RF Dose Instruction: USE 1 INHALATION BY MOUTH ONCE DAILY Rx Instructions: USE 1 INHALATION BY MOUTH ONCE DAILY albuterol sulfate 90 mcg/actuation HFA aerosol inhaler 1 inh inhalation QID Qty: 8.5 2RF bupropion HCl 150 mg tablet sustained-release 12 hr See Rx Instructions .ROUTE .COMPLEX Qty: 60 0RF Dose Instruction: TAKE 1 TABLET BY MOUTH TWICE DAILY Rx Instructions: TAKE 1 TABLET BY MOUTH TWICE DAILY cyclobenzaprine 10 mg tablet 10 mg PO DAILY Referrals Follow up/Referrals: Praveen Velasquez DO [Staff Physician] - See instructions Johnathan Kellogg DO [Primary Care Provider] - See instructions Activity Restrictions/Add. Instructions Additional Instructions/Restrictions: Rest the extremity, Elevate the extremity as tolerated while you are resting. Take the medication as directed. Don't start the oral streroids (methyprednisone) until tomorrow. Follow up with Dr. Velasquez (orthopedics). I put in a referral but you need to call his office and schedule an appointment. Follow up with your regular doctor. GO TO THE ER FOR ANY WORSENING SYMPTOMS Clinical Impressions Clinical Impression: Hip pain, right Instructions Patient Instructions: Dexamethasone, Methylprednisolone, DI for Hip Pain Discharge ED Provider: Jarvis Carver [facility] [place] General Stated complaint: R hip pain Time Seen by Provider: 11/05/23 09:27 History of Present Illness Provider Complaint: She states that she has had right hip pain for the past 2 weeks. She denies any injury or fall. 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 Related Data Home Medications Medication Instructions Recorded Confirmed cyclobenzaprine 10 mg tablet 10 mg PO DAILY 11/05/23 11/05/23 amitriptyline 25 mg tablet 50 mg PO DAILY 11/06/23 11/06/23 Previous Rx's Medication Instructions Recorded alendronate 70 mg tablet 70 mg PO WEEKLY #12 tabs 08/23/21 cholecalciferol (vitamin D3) 1,250 See Rx Instructions .Route 07/24/22 mcg (50,000 unit) capsule .COMPLEX #14 caps cholecalciferol (vitamin D3) 25 See Rx Instructions .Route 07/24/22 mcg (1,000 unit) capsule .COMPLEX #30 caps fluticasone propionate 50 See Rx Instructions .Route 12/19/22 mcg/actuation nasal .COMPLEX #16 grams spray,suspension (Allergy Relief (fluticasone)) citalopram 40 mg tablet See Rx Instructions .Route 01/09/23 .COMPLEX #90 tabs omeprazole 20 mg capsule,delayed See Rx Instructions .Route 09/05/23 release .COMPLEX #180 caps atorvastatin 10 mg tablet See Rx Instructions .Route 09/21/23 .COMPLEX #90 ea buspirone 5 mg tablet 5 mg PO BID 30 days #60 tabs 10/12/23 gabapentin 800 mg tablet 800 mg PO TID Pain #90 tabs 10/12/23 tizanidine 2 mg capsule 2 mg PO Q8H PRN muscle spasticity 10/12/23 30 days #120 caps albuterol sulfate 90 mcg/actuation 1 inh inhalation QID COPD #8.5 10/16/23 aerosol inhaler grams fluticasone furoate 100 See Rx Instructions .Route 10/16/23 mcg-vilanterol 25 mcg/dose .COMPLEX #60 ea inhalation powder (Breo Ellipta) bupropion HCl 150 mg tablet,12 hr See Rx Instructions .Route 10/22/23 sustained-release .COMPLEX #60 tabs methylprednisolone 4 mg tablets in 4 mg PO DIRECTED 6 days #21 tabs 11/05/23 a dose pack Allergies Allergy/AdvReac Type Severity Reaction Status Date / Time No Known Allergies Allergy Verified 11/05/23 11:51 [facility] Disclaimer: The information contained in this section may have been updated after the patient was seen, as this information can be updated by other users. Medical History Osteoporosis Patient had bone densitometry done in April 2022. This revealed osteoporosis. She is on alendronate 70 mg/week. Additionally she is on vitamin D at 50,000 mcg/week and 1000 mcg/day. Will check a vitamin D the next time she comes in. Her last 2 vitamin D levels were within normal limits. The most recent was April 11 and was 30.8. Additionally she needs to be evaluated for her adrenal hyperplasia see above. Social History Smoking Status: Current every day smoker tobacco type: cigarettes packs per day: 1 alcohol intake: never counseling provided: none substance use type: denies use current occupational status: other Travel in the last 8 weeks: None household members: spouse housing: house current occupational exposures/hazards: No caffeine: Yes ROS Obtained: Yes All systems reviewed & no additional complaints except as documented Constitutional Constitutional: Denies chills and Denies fever(s) Eyes Eyes: Denies eye discharge ENT Ears, Nose, Mouth, and Throat: Denies dizziness, Denies otalgia and Denies sore throat Cardiovascular Cardiovascular: Denies chest pain Respiratory Respiratory: Denies shortness of breath, Denies chest congestion, Denies cough, Denies stridor and Denies wheezing Gastrointestinal Gastrointestingal: Denies nausea or vomiting Musculoskeletal Musculoskeletal: Reports as per HPI Integumentary/Breasts Skin/Breast: Denies rash Neurologic Neurologic: Denies dizziness and Denies paresthesias Allergic/Immunologic Allergic/Immunologic: Denies wheezing Physical Exam General General appearance: alert and in no apparent distress Head Head exam: atraumatic, normocephalic and normal inspection Eye Eye exam: Present normal appearance, PERRL and EOMI ENT ENT exam: Present normal exam, normal oropharynx, mucous membranes moist, TM's normal bilaterally and normal external ear exam Neck Neck exam: Present normal inspection, full ROM and trachea midline; Absent meningismus or lymphadenopathy Chest Chest inspection: Present normal inspection and symmetric chest wall rise; Absent tenderness Respiratory Respiratory exam: Present normal lung sounds bilaterally; Absent respiratory distress Cardiovascular Cardiovascular exam: Present regular rate and normal rhythm; Absent JVD Abdominal Exam Abdominal exam: Present soft and normal bowel sounds; Absent distention, tenderness or guarding Extremities Exam Extremities exam: Present normal capillary refill; Absent calf tenderness Expanded Lower Extremity Exam Right: Hip/Pelvis exam: Present full ROM; Absent tenderness, pelvis stable, swelling, ecchymosis, deformity, dislocation, external rotation, internal rotation, shortening of leg, pain on hip/pelvis palpation, hip pain on leg movement, erythema, crepitus, laceration or abrasion Upper leg exam: Present normal inspection and full ROM; Absent tenderness Knee exam: Present normal inspection; Absent full ROM or tenderness Lower leg exam: Present normal inspection and full ROM; Absent tenderness Ankle exam: Present normal inspection and full ROM; Absent tenderness Foot/toe exam: Present normal inspection and full ROM; Absent tenderness Neurovascular/Tendon exam: Present normal capillary refill and pulse deficit; Absent motor deficit Gait: observed and normal Back Exam Back exam: Present normal inspection; Absent tenderness Neurological Exam Neurological exam: Present alert and oriented X3 Psychiatric Psychiatric exam: Present normal affect and normal mood Skin Skin exam: Present warm, dry, intact and normal color Lymphatic Lymphatic Findings: no adenopathy Medical Decision Making Medical Records Medical records reviewed: No I reviewed the patient's medical records. Kj Inquiry Pt receiving controlled substance: No Radiology Data #1: Image(s): Hip Image Reviewed: Yes I reviewed the patient's radiology image and Yes I have reviewed radiologist's interpretation Preliminary Findings: Normal/NAD and No Fracture Seen FINAL REPORT CLINICAL HISTORY: pain, rt hip pain COMPARISON: None FINDINGS: An AP view of the pelvis and a frog leg views of the right hip were obtained. There is no prior exam for comparison. There is no acute fracture or dislocation. Joint space is preserved. Remaining osseous pelvis is within normal limits. Soft tissues are within normal limits. IMPRESSION: No acute osseous abnormality of the right hip. Reviewed, Interpreted and Dictated by Harish Pandey III, MD Transcribed by Gunjan Coronel Authenticated and [facility]
[2023-11-05 09:30] VITALS: BP 157/88; PULSE 103; RESP 18; TEMP 36.8; O2SAT 96; BMI 29.8
--- NOTE | 2023-11-05 09:31 | XR_ITS ---
FINAL REPORT CLINICAL HISTORY: pain, rt hip pain COMPARISON: None FINDINGS: An AP view of the pelvis and a frog leg views of the right hip were obtained. There is no prior exam for comparison. There is no acute fracture or dislocation. Joint space is preserved. Remaining osseous pelvis is within normal limits. Soft tissues are within normal limits. IMPRESSION: No acute osseous abnormality of the right hip. Reviewed, Interpreted and Dictated by Harish Pandey III, MD Transcribed by Gunjan Coronel Authenticated and . [facility]
[2023-11-05] MEDS: DEXAMETHASONE 4MG/ML 1ML VIAL 8 MG IM (10:17)
[2023-11-05 10:58] VITALS: BP 157/88; PULSE 103; RESP 18; TEMP 36.8; O2SAT 96
== END 2023-11-05 10:57 | disposition home or self-care (01) ==
PROVIDERS: Emergency Provider Nurse Practitioner Family; PCP Internal Medicine
DX: M25.551 Pain in right hip (principal); M81.8 Other osteoporosis without current pathological fracture; F17.210 Nicotine dependence, cigarettes, uncomplicated; M16.0 Bilateral primary osteoarthritis of hip
CPT/HCPCS: 73502; 96372; 99212; 99214; G0463

== ENCOUNTER 2024-01-31 22:21 | Emergency (ER) | payer MEDICARE, SELFPAY ==
[2024-01-31 22:23] VITALS: BP 117/91; PULSE 113; RESP 17; TEMP 37.1; O2SAT 98; BMI 35.2
--- NOTE | 2024-01-31 22:28 | PC.NURSE ---
gordon duke at bedside
--- NOTE | 2024-01-31 22:29 | ED_ITS ---
<Statement entered by Sandro Fleming MD - 01/31/24 23:08> I was consulted by the MATTEO, and we discussed the complexity of the problems being addressed. I approved the treatment and management plan for this patient's care in the emergency department, thus performing a substantive portion of the medical decision making. Sandro Fleming MD Discharge Plan Disposition Patient Disposition: Home, Self-Care Condition: Good Prescriptions Prescriptions: New valacyclovir [Valtrex] 1 gram tablet 1,000 mg PO Q8H 7 Days Qty: 21 0RF prednisone 50 mg tablet 50 mg PO DAILY 5 Days Qty: 5 0RF No Action desvenlafaxine succinate [Pristiq] 25 mg tablet extended release 24 hr 25 mg PO DAILY Qty: 30 2RF mirtazapine [Remeron] 15 mg tablet 7.5 - 15 mg PO HS PRN (Reason: sleep) Qty: 30 2RF alendronate 70 mg tablet 70 mg PO WEEKLY Qty: 12 2RF gabapentin 800 mg tablet 800 mg PO TID Qty: 90 3RF cholecalciferol (vitamin D3) 25 mcg (1,000 unit) capsule See Rx Instructions .ROUTE .COMPLEX Qty: 30 1RF Dose Instruction: TAKE 1 CAPSULE BY MOUTH EVERY DAY Rx Instructions: TAKE 1 CAPSULE BY MOUTH EVERY DAY cholecalciferol (vitamin D3) 1,250 mcg (50,000 unit) capsule See Rx Instructions .ROUTE .COMPLEX Qty: 14 1RF Dose Instruction: TAKE 1 CAPSULE BY MOUTH ONCE A WEEK Rx Instructions: TAKE 1 CAPSULE BY MOUTH ONCE A WEEK fluticasone propionate [Allergy Relief (fluticasone)] 50 mcg/actuation spray,suspension See Rx Instructions .ROUTE .COMPLEX Qty: 16 5RF Dose Instruction: USE 1 SPRAY IN EACH NOSTRIL ONCE DAILY Rx Instructions: USE 1 SPRAY IN EACH NOSTRIL ONCE DAILY albuterol sulfate 90 mcg/actuation HFA aerosol inhaler 1 inh inhalation QID Qty: 8.5 2RF ibuprofen 600 mg tablet 600 mg PO Q6HP PRN (Reason: Mild Pain) Qty: 30 0RF omeprazole 20 mg capsule,delayed release(DR/EC) See Rx Instructions .ROUTE .COMPLEX Qty: 180 0RF Dose Instruction: TAKE 1 CAPSULE BY MOUTH TWICE DAILY FOR GERD Rx Instructions: TAKE 1 CAPSULE BY MOUTH TWICE DAILY FOR GERD bupropion HCl 150 mg tablet sustained-release 12 hr See Rx Instructions .ROUTE .COMPLEX Qty: 180 1RF Dose Instruction: TAKE 1 TABLET BY MOUTH TWICE DAILY Rx Instructions: TAKE 1 TABLET BY MOUTH TWICE DAILY atorvastatin 10 mg tablet See Rx Instructions .ROUTE .COMPLEX Qty: 90 1RF Dose Instruction: TAKE ONE TABLET BY MOUTH AT BEDTIME Rx Instructions: TAKE ONE TABLET BY MOUTH AT BEDTIME fluticasone furoate-vilanterol [Breo Ellipta] 100-25 mcg/dose blister with device See Rx Instructions .ROUTE .COMPLEX Qty: 60 1RF Dose Instruction: USE 1 INHALATION BY MOUTH ONCE DAILY Rx Instructions: USE 1 INHALATION BY MOUTH ONCE DAILY Linzess 72 mcg capsule 72 mcg PO DAILY Qty: 30 2RF cyclobenzaprine 10 mg tablet 10 mg PO Q8H PRN (Reason: muscle spasm) Qty: 90 0RF buspirone 10 mg tablet See Rx Instructions .ROUTE .COMPLEX Qty: 90 2RF Dose Instruction: TAKE 1 TABLET BY MOUTH THREE TIMES A DAY FOR ANXIETY/DEPRESSION MAY CAUSE DROWSINESS Rx Instructions: TAKE 1 TABLET BY MOUTH THREE TIMES A DAY FOR ANXIETY/DEPRESSION MAY CAUSE DROWSINESS Referrals Follow up/Referrals: Johnathan Kellogg DO [Primary Care Provider] - See instructions Activity Restrictions/Add. Instructions Additional Instructions/Restrictions: Please take all medication as prescribed. Please follow-up with your PCP for recheck. Please return to emergency department for any worsening signs or symptoms. Clinical Impressions Clinical Impression: Herpes zoster Qualifiers: Herpes zoster complications: without complications Qualified Code(s): B02.9 - Zoster without complications Instructions Patient Instructions: DI for Skin Abscess Discharge ED Provider: Sandro Fleming General Adult HPI General Chief complaint: Skin/Abscess/Foreign Body Stated complaint: Pain in right shoulder down to ribs cage Time Seen by Provider: 01/31/24 22:28 History of Present Illness HPI narrative: Patient presents for evaluation initially for right shoulder pain. Patient states that she started having significant amount of pain with range of motion of her right shoulder. Also reports some constitutional symptoms of malaise. Patient states that the pain radiates around from her back to the front side on the right chest. She started noticing a red rash on her anterior chest which is why she presented to the emergency department. She has never had shingles before but has had chickenpox. She has not had the shingles vaccine. She denies cardiac chest pain shortness of breath chills hemoptysis hematochezia melena nausea vomiting diarrhea. Related Data Previous Rx's Medication Instructions Recorded alendronate 70 mg tablet 70 mg PO WEEKLY #12 tabs 08/23/21 cholecalciferol (vitamin D3) 1,250 See Rx Instructions .Route 07/24/22 mcg (50,000 unit) capsule .COMPLEX #14 caps cholecalciferol (vitamin D3) 25 See Rx Instructions .Route 07/24/22 mcg (1,000 unit) capsule .COMPLEX #30 caps fluticasone propionate 50 See Rx Instructions .Route 12/19/22 mcg/actuation nasal .COMPLEX #16 grams spray,suspension (Allergy Relief (fluticasone)) albuterol sulfate 90 mcg/actuation 1 inh inhalation QID COPD #8.5 10/16/23 aerosol inhaler grams ibuprofen 600 mg tablet 600 mg PO Q6HP PRN Mild Pain #30 11/09/23 tabs omeprazole 20 mg capsule,delayed See Rx Instructions .Route 11/22/23 release .COMPLEX #180 caps atorvastatin 10 mg tablet See Rx Instructions .Route 12/21/23 .COMPLEX #90 ea bupropion HCl 150 mg tablet,12 hr See Rx Instructions .Route 12/21/23 sustained-release .COMPLEX #180 tabs desvenlafaxine succinate 25 mg 25 mg PO DAILY #30 tabs 12/26/23 tablet,extended release 24 hr (Pristiq) mirtazapine 15 mg tablet (Remeron) 7.5 - 15 mg (0.5 - 1 x 15 mg) PO 12/26/23 HS PRN sleep #30 tabs fluticasone furoate 100 See Rx Instructions .Route 01/21/24 mcg-vilanterol 25 mcg/dose .COMPLEX #60 ea inhalation powder (Breo Ellipta) gabapentin 800 mg tablet 800 mg PO TID Pain #90 tabs 01/22/24 linaclotide 72 mcg capsule 72 mcg PO DAILY #30 caps 01/23/24 (Linzess) cyclobenzaprine 10 mg tablet 10 mg PO Q8H PRN muscle spasm #90 01/27/24 tabs buspirone 10 mg tablet See Rx Instructions .Route 01/28/24 .COMPLEX #90 tabs prednisone 50 mg tablet 50 mg PO DAILY 5 days #5 tabs 01/31/24 valacyclovir 1 gram tablet 1,000 mg PO Q8H 7 days #21 tabs 01/31/24 (Valtrex) Allergies Allergy/AdvReac Type Severity Reaction Status Date / Time No Known Allergies Allergy Verified 01/22/24 15:11 [facility] Disclaimer: The information contained in this section may have been updated after the patient was seen, as this information can be updated by other users. Medical History Tobacco use Strongly encouraged to quit. Offered her what ever we can do to help with her tobacco addiction. Patient will send her to pulmonary. Hyperlipidemia Patient's last lipid panel was done in March 2023. Total cholesterol 173 LDL of 78 HDL of 77 and triglycerides of 51. This is an excellent panel I will keep her on the atorvastatin. IBS (irritable bowel syndrome) Anxiety Chronic prescription benzodiazepine use We were going to take longer to taper this patient off her clonazepam but she stopped it completely. I think she is going through a little bit of withdrawals at this point. But I would not put her back on clonazepam just based on what I saw today. Will start buspirone at 5 mg twice a day. COPD (chronic obstructive pulmonary disease) Patient is on metered-dose inhalers. I think at her return we will consider sending her to pulmonology and getting PFTs. Discussed with her the need to quit smoking which she has not done yet. Primary unilateral adrenal hyperplasia Patient has bilateral adrenal hyperplasia based on the CT scan done August 09. This was not read in detail and no other imaging has been done since that time. We did get a CT scan of the abdomen on September 14 of this year. It did reveal bilateral adrenal hyperplasia . We will get a 24-hour free cortisol level as well as a dexamethasone depression test. Addition we will send this patient to endocrinology once these tests are done. Will leave further testing up to them. Will try to get this done as soon as possible. This patient has osteoporosis she has obesity she has a number of other clinical findings that would be consistent with an ACTH independent lesion. Insomnia Patient states that the amitriptyline was of no help for sleep. We will try tizanidine that she has not been on in the past. Will try this to the 3 times daily dosing of 2 mg 2 mg and 4 mg at bedtime. She can take this as needed and I have discussed this with her as well as the side effects of this medication. Osteoporosis Patient had bone densitometry done in April 2022. This revealed osteoporosis. She is on alendronate 70 mg/week. Additionally she is on vitamin D at 50,000 mcg/week and 1000 mcg/day. Will check a vitamin D the next time she comes in. Her last 2 vitamin D levels were within normal limits. The most recent was April 11 and was 30.8. Additionally she needs to be evaluated for her adrenal hyperplasia see above. Surgical History No pertinent past surgical history Family History Family/Other No significant family history Social History Smoking Status: Current every day smoker tobacco type: cigarettes packs per day: 1 alcohol intake: never counseling provided: none substance use type: denies use current occupational status: other Travel in the last 8 weeks: None household members: spouse housing: house current occupational exposures/hazards: No caffeine: Yes ROS Obtained: Yes Systems reviewed as appropriate & no additional complaints except as documented Physical Exam General General appearance: alert and in no apparent distress Respiratory Respiratory exam: Present normal lung sounds bilaterally Cardiovascular Cardiovascular exam: Present regular rate and normal rhythm Neurological Exam Neurological exam: Present alert and oriented X3 Other Other exam information: Patient has a erythematous confluent papulovesicular rash that is hemispherical from the right upper T-spine in a dermatomal fashion crossing to the right anterior chest. There are several vesicles and it is painful to palpation. Medical Decision Making Medical Records Medical records reviewed: Yes I reviewed the patient's medical records. Kj Inquiry Pt receiving controlled substance: No Vital Signs: 01/31/24 22:23 Temperature 98.8 F Temperature Source Oral Pulse Rate [Left Radial] 113 H Respiratory Rate 17 Blood Pressure [Right Arm] 117/91 H Blood Pressure Mean [Right Arm] 99 Blood Pressure Source [Right Arm] Automatic Cuff Blood Pressure Position [Right Arm] Sitting 02 Sat by Pulse Oximetry 98 Oxygen Delivery Method Room Air Lab Data Lab results reviewed: Yes I reviewed the patient's lab results. Orders (Tests/Meds): ED MEDICATIONS Generic Name Dose Route Start Last Admin Trade Name Dom PRN Reason Stop Dose Admin Acyclovir 800 mg 01/31/24 22:43 Acyclovir 400mg Tab PO 01/31/24 22:44 ONCE ONE Prednisone 60 mg 01/31/24 22:43 Prednisone 20mg Tab PO 01/31/24 22:44 ONCE ONE Medical Decision Narrative: In summary patient is a 88-year-old female who presents to the emergency department for evaluation of right-sided rash. Patient is hemodynamically stable upon arrival, afebrile. Physical exam is remarkable for a dermatomal rash on the right side that appears to originate from the upper T-spine that is vesicular erythematous and confluent. It spreads around to the anterior chest but does not cross the midline. Differential diagnosis includes shingles versus contact dermatitis versus poison akil etc. Initial workup was considered including hematologic labs however this is a classic presentation of shingles thus no further workup was deferred. Initial interventions include acyclovir and steroids. I had interactive discussion with the patient regarding her diagnosis. Patient appropriate opportunity to ask questions and has deferred further workup as well via patient directed decision making. Thus patient will be discharged with a prescription for Valtrex 1000 mg 3 times a day with first dose given here and a course of steroids. Patient return the emergency department for any worsening signs or symptoms. Critical Care Critical Care Time Critical Care Time: No
[2024-01-31] MEDS: ACYCLOVIR 400MG TAB 800 MG PO (22:50)
[2024-01-31] MEDS: predniSONE 20MG TAB 60 MG PO (22:50)
[2024-01-31 22:53] VITALS: BP 128/76; PULSE 78; RESP 18; TEMP 36.5; O2SAT 95
== END 2024-01-31 22:54 | disposition home or self-care (01) ==
PROVIDERS: Emergency Provider Emergency Medicine; PCP Internal Medicine
DX: B02.9 Zoster without complications (principal); M25.511 Pain in right shoulder; F17.210 Nicotine dependence, cigarettes, uncomplicated; J44.9 Chronic obstructive pulmonary disease, unspecified
CPT/HCPCS: 99283

== ENCOUNTER 2024-04-24 08:41 | Emergency (ER) | payer MEDICARE, MEDICAID, SELFPAY ==
[2024-04-24] VITALS (7 sets, daily range): BP systolic 79–116; BP diastolic 57–66; PULSE 80–180; RESP 16–18; TEMP 36.7–36.8; O2SAT 93–98; BMI 28.3
--- NOTE | 2024-04-24 08:47 | PC.NURSE ---
Dr. Townsend at [facility] for pt eval
--- NOTE | 2024-04-24 08:50 | XR_ITS ---
FINAL REPORT CLINICAL HISTORY: Inverted foot, dorsal midfoot pain Twisted foot getting out van last night COMPARISON: None FINDINGS: LEFT FOOT: Three views of the left foot were obtained. There is no acute fracture or dislocation. The joint spaces are intact. There is no soft tissue abnormality. IMPRESSION: No acute bony abnormality. Reviewed, Interpreted and Dictated by Harish Pandey III, MD Transcribed by Caity Villar Authenticated and [facility]
--- NOTE | 2024-04-24 08:57 | ED_ITS ---
Discharge Plan Disposition Patient Disposition: Home, Self-Care Chief Complaint: Extremity Injury, Lower Prescriptions Prescriptions: No Action valacyclovir [Valtrex] 1 gram tablet 1,000 mg PO Q8H 7 Days Qty: 21 0RF alendronate 70 mg tablet 70 mg PO WEEKLY Qty: 12 2RF clonidine HCl 0.1 mg tablet 0.1 - 0.2 mg PO HS PRN (Reason: sleep) Qty: 30 2RF desvenlafaxine succinate [Pristiq] 50 mg tablet extended release 24 hr 50 mg PO DAILY Qty: 30 2RF gabapentin 800 mg tablet 800 mg PO TID Qty: 90 3RF desvenlafaxine succinate [Pristiq] 100 mg tablet extended release 24 hr 100 mg PO DAILY Qty: 30 2RF cholecalciferol (vitamin D3) 25 mcg (1,000 unit) capsule See Rx Instructions .ROUTE .COMPLEX Qty: 30 1RF Dose Instruction: TAKE 1 CAPSULE BY MOUTH EVERY DAY Rx Instructions: TAKE 1 CAPSULE BY MOUTH EVERY DAY cholecalciferol (vitamin D3) 1,250 mcg (50,000 unit) capsule See Rx Instructions .ROUTE .COMPLEX Qty: 14 1RF Dose Instruction: TAKE 1 CAPSULE BY MOUTH ONCE A WEEK Rx Instructions: TAKE 1 CAPSULE BY MOUTH ONCE A WEEK fluticasone propionate [Allergy Relief (fluticasone)] 50 mcg/actuation spray,suspension See Rx Instructions .ROUTE .COMPLEX Qty: 16 5RF Dose Instruction: USE 1 SPRAY IN EACH NOSTRIL ONCE DAILY Rx Instructions: USE 1 SPRAY IN EACH NOSTRIL ONCE DAILY albuterol sulfate 90 mcg/actuation HFA aerosol inhaler 1 inh inhalation QID Qty: 8.5 2RF bupropion HCl 150 mg tablet sustained-release 12 hr See Rx Instructions .ROUTE .COMPLEX Qty: 180 1RF Dose Instruction: TAKE 1 TABLET BY MOUTH TWICE DAILY Rx Instructions: TAKE 1 TABLET BY MOUTH TWICE DAILY atorvastatin 10 mg tablet See Rx Instructions .ROUTE .COMPLEX Qty: 90 1RF Dose Instruction: TAKE ONE TABLET BY MOUTH AT BEDTIME Rx Instructions: TAKE ONE TABLET BY MOUTH AT BEDTIME buspirone 10 mg tablet See Rx Instructions .ROUTE .COMPLEX Qty: 90 2RF Dose Instruction: TAKE 1 TABLET BY MOUTH THREE TIMES A DAY FOR ANXIETY/DEPRESSION MAY CAUSE DROWSINESS Rx Instructions: TAKE 1 TABLET BY MOUTH THREE TIMES A DAY FOR ANXIETY/DEPRESSION MAY CAUSE DROWSINESS ibuprofen 600 mg tablet 600 mg PO Q6HP PRN (Reason: Mild Pain) Qty: 30 0RF omeprazole 20 mg capsule,delayed release(DR/EC) See Rx Instructions .ROUTE .COMPLEX Qty: 180 0RF Dose Instruction: TAKE 1 CAPSULE BY MOUTH TWICE DAILY FOR GERD Rx Instructions: TAKE 1 CAPSULE BY MOUTH TWICE DAILY FOR GERD tizanidine 2 mg tablet See Rx Instructions .ROUTE .COMPLEX Qty: 120 1RF Dose Instruction: TAKE 1 TABLET BY MOUTH EVERY 8 HOURS NEEDED FOR MUSCLE SPASTICITY (CAN TAKE 2 AT BEDTIME) MAY CAUSE DROWSINESS Rx Instructions: TAKE 1 TABLET BY MOUTH EVERY 8 HOURS NEEDED FOR MUSCLE SPASTICITY (CAN TAKE 2 AT BEDTIME) MAY CAUSE DROWSINESS Linzess 72 mcg capsule See Rx Instructions .ROUTE .COMPLEX Qty: 30 2RF Dose Instruction: TAKE 1 CAPSULE BY MOUTH ONCE DAILY Rx Instructions: TAKE 1 CAPSULE BY MOUTH ONCE DAILY fluticasone furoate-vilanterol [Breo Ellipta] 100-25 mcg/dose blister with device See Rx Instructions .ROUTE .COMPLEX Qty: 60 2RF Dose Instruction: USE 1 INHALATION BY MOUTH ONCE DAILY Rx Instructions: USE 1 INHALATION BY MOUTH ONCE DAILY prednisone 50 mg tablet 50 mg PO DAILY 5 Days Qty: 5 0RF Referrals Follow up/Referrals: Johnathan Kellogg DO [Primary Care Provider] - See instructions Activity Restrictions/Add. Instructions Additional Instructions/Restrictions: Call your family doctor to establish care for this visit to the emergency department and schedule follow-up within 48 hours to ensure improvement. If you have any worsening of your condition or any other concerning signs or symptoms, return to the emergency department or your primary care doctor for further evaluation. Take Tylenol 1000 mg every 6 hours (4 times daily) and ibuprofen 400 mg every 6 hours (4 times daily) as needed with food and water to prevent GI upset and kidney damage. Ice packs and elevation will help with swelling Clinical Impressions Clinical Impression: Foot sprain Qualifiers: Encounter type: initial encounter Laterality: left Qualified Code(s): S93.602A - Unspecified sprain of left foot, initial encounter Print Language Print Language: Divehi Discharge ED Provider: Adrian Townsend General Adult [facility] General Chief complaint: Extremity Injury, Lower Stated complaint: left ankle pain Time Seen by Provider: 04/24/24 08:44 Mode of Arrival: Wheelchair Source of Information: Patient Limitations: No Limitations Description of Symptoms (Recalled from ER Triage Doc. by RN): left ankle pain History of Present Illness HPI narrative: Please note that above description of symptoms, in this electronic medical record under categorization of recalled from ER triage doctor by RN are reflective of an initial nursing assessment, however, is not reflective of my full history and physical exam that was personally taken and clarified. Consequentially, this preceding description of symptoms, which may include the patient's categorized chief complaint in the EMR, do not reflect my personal clinical impression, and the ultimate description of history of present illness and patient stated complaints should be deferred to this section of the note. Unless stated otherwise or congruent with this section of the note, additional signs, symptoms, or incongruence should be interpreted as inaccurate with my clinical impression. Related Data Previous Rx's ?Medication ?Instructions ?Recorded alendronate 70 mg tablet 70 mg PO WEEKLY #12 tabs 08/23/21 cholecalciferol (vitamin D3) 1,250 See Rx Instructions .Route 07/24/22 mcg (50,000 unit) capsule .COMPLEX #14 caps cholecalciferol (vitamin D3) 25 See Rx Instructions .Route 07/24/22 mcg (1,000 unit) capsule .COMPLEX #30 caps fluticasone propionate 50 See Rx Instructions .Route 12/19/22 mcg/actuation nasal .COMPLEX #16 grams spray,suspension (Allergy Relief (fluticasone)) albuterol sulfate 90 mcg/actuation 1 inh inhalation QID COPD #8.5 10/16/23 aerosol inhaler grams atorvastatin 10 mg tablet See Rx Instructions .Route 12/21/23 .COMPLEX #90 ea bupropion HCl 150 mg tablet,12 hr See Rx Instructions .Route 12/21/23 sustained-release .COMPLEX #180 tabs gabapentin 800 mg tablet 800 mg PO TID Pain #90 tabs 01/22/24 buspirone 10 mg tablet See Rx Instructions .Route 01/28/24 .COMPLEX #90 tabs prednisone 50 mg tablet 50 mg PO DAILY 5 days #5 tabs 01/31/24 clonidine HCl 0.1 mg tablet 0.1 - 0.2 mg (1 - 2 x 0.1 mg) PO 02/13/24 HS PRN sleep #30 tabs desvenlafaxine succinate 50 mg 50 mg PO DAILY #30 tabs 02/13/24 tablet,extended release 24 hr (Pristiq) valacyclovir 1 gram tablet 1,000 mg PO Q8H 7 days #21 tabs 02/13/24 (Valtrex) ibuprofen 600 mg tablet 600 mg PO Q6HP PRN Mild Pain #30 02/18/24 tabs omeprazole 20 mg capsule,delayed See Rx Instructions .Route 02/19/24 release .COMPLEX #180 caps desvenlafaxine succinate 100 mg 100 mg PO DAILY #30 tabs 03/12/24 tablet,extended release 24 hr (Pristiq) tizanidine 2 mg tablet See Rx Instructions .Route 04/07/24 .COMPLEX #120 tabs fluticasone furoate 100 See Rx Instructions .Route 04/22/24 mcg-vilanterol 25 mcg/dose .COMPLEX #60 ea inhalation powder (Breo Ellipta) linaclotide 72 mcg capsule See Rx Instructions .Route 04/22/24 (Linzess) .COMPLEX #30 caps Allergies Allergy/AdvReac Type Severity Reaction Status Date / Time No Known Allergies Allergy Verified 04/24/24 09:34 [facility] Disclaimer: The information contained in this section may have been updated after the patient was seen, as this information can be updated by other users. Medical History COPD exacerbation Rib contusion Bronchitis Pleurisy Dog bite Laceration Neck strain Tobacco use Hyperlipidemia Patient's last lipid panel was done in March 2023. Total cholesterol 173 LDL of 78 HDL of 77 and triglycerides of 51. This is an excellent panel I will keep her on the atorvastatin. IBS (irritable bowel syndrome) Anxiety Chronic prescription benzodiazepine use We were going to take longer to taper this patient off her clonazepam but she stopped it completely. I think she is going through a little bit of withdrawals at this point. But I would not put her back on clonazepam just based on what I saw today. Will start buspirone at 5 mg twice a day. COPD (chronic obstructive pulmonary disease) Patient is on metered-dose inhalers. I think at her return we will consider sending her to pulmonology and getting PFTs. Discussed with her the need to quit smoking which she has not done yet. Primary unilateral adrenal hyperplasia Patient has bilateral adrenal hyperplasia based on the CT scan done August 09. This was not read in detail and no other imaging has been done since that time. We did get a CT scan of the abdomen on September 14 of this year. It did reveal bilateral adrenal hyperplasia . We will get a 24-hour free c ortisol level as well as a dexamethasone depression test. Addition we will send this patient to endocrinology once these tests are done. Will leave further testing up to them. Will try to get this done as soon as possible. This patient has osteoporosis she has obesity she has a number of other clinical findings that would be consistent with an ACTH independent lesion. Insomnia Patient states that the amitriptyline was of no help for sleep. We will try tizanidine that she has not been on in the past. Will try this to the 3 times daily dosing of 2 mg 2 mg and 4 mg at bedtime. She can take this as needed and I have discussed this with her as well as the side effects of this medication. Osteoporosis Patient had bone densitometry done in April 2022. This revealed osteoporosis. She is on alendronate 70 mg/week. Additionally she is on vitamin D at 50,000 mcg/week and 1000 mcg/day. Will check a vitamin D the next time she comes in. Her last 2 vitamin D levels were within normal limits. The most recent was April 11 and was 30.8. Additionally she needs to be evaluated for her adrenal hyperplasia see above. Surgical History No pertinent past surgical history Family History Family/Other No significant family history Social History Smoking Status: Current every day smoker tobacco type: cigarettes packs per day: 1 alcohol intake: never counseling provided: none substance use type: denies use current occupational status: other Travel in the last 8 weeks: None household members: spouse housing: house current occupational exposures/hazards: No caffeine: Yes ROS Obtained: Yes All systems reviewed & no additional complaints except as documented Physical Exam General General appearance: alert Head Head exam: atraumatic and normocephalic Eye Eye exam: Present normal appearance, PERRL and EOMI Neck Neck exam: Present normal inspection, full ROM and trachea midline Respiratory Respiratory exam: Absent respiratory distress, wheezes, stridor, accessory muscle use or prolonged expiratory phase Cardiovascular Cardiovascular exam: Present other (Pulses equal symmetric in upper and lower extremities) Abdominal Exam Abdominal exam: Present soft; Absent distention, tenderness or pulsatile mass Extremities Exam Extremities exam: Absent edema Neurological Exam Neurological exam: Present alert, oriented X3 and CN II-XII intact; Absent motor sensory deficit Skin Skin exam: Present warm and dry; Absent diaphoresis or erythema Medical Decision Making Medical Records Medical records reviewed: Yes I reviewed the patient's medical records. Kj Inquiry Pt receiving controlled substance: No Kj was queried for this patient: No Vital Signs: 04/24/24 08:42 04/24/24 09:15 04/24/24 10:00 Temperature 98.3 F Temperature Source Oral Pulse Rate 80 101 H Pulse Rate [Left] 98 H Respiratory Rate 18 Blood Pressure 116/65 Blood Pressure [Left Arm] 106/66 L Blood Pressure Mean [Left Arm] 79 02 Sat by Pulse Oximetry 96 98 96 Oxygen Delivery Method Room Air Room Air Orders (Tests/Meds): ORDERS Category Date Time Status Foot XR left minimum 3 views [XR foot LT min 3V] Stat Exams 04/24/24 08:50 Taken Medical Decision Narrative: 59-year-old female history of osteoporosis presenting with left foot pain. Last night, 04/23, patient states that she stepped out of her car wrong. Twisted her ankle inward/inverted. Has been able to bear weight, but with significant pain. States that she did not hear or feel a pop. No numbness, weakness, tingling distally. Concerned because at some point the past, she rolled over in bed wrong, broke her collarbone, so fearful that she may have broken her foot. Has tried Tylenol and Motrin with minimal symptom relief. History was obtained via conversation with patient. On arrival, patient hemodynamically stable, alert, oriented x4, appropriate, GCS 15, moving all extremities spontaneously, pupils equal and reactive to light. Full physical exam performed and significant for tenderness with minimal swelling left dorsal midfoot overlying talus. Some tenderness overlying fifth metatarsal. Neurovascularly intact. Patient's range of motion is intact proximally and distally. Differential includes sprain, strain, fracture, dislocation, among others. Patient placed on continuous cardiac monitoring and continuous pulse ox with initial blood pressure 106/66, heart rate 99, saturation 96% on room air. Patient given ice pack for symptom relief. Workup independently interpreted and significant for no acute bony abnormality on x-ray foot. See radiology read for full review of final results. On reevaluation, patient feeling better with ice. Pain is still there, but improved. Because patient at baseline without signs or symptoms of clinical decompensation, deemed appropriate for discharge. Results were relayed to patient who voiced understanding and were agreeable to outpatient management and follow up. I discussed my clinical impression with patient and answered all questions. At this time, the evidence for any other entities in the differential is insufficient to warrant any further testing or ED observation. This was explained as well. Advisory was given that persistent or worsening symptoms require further evaluation. I confirmed the understanding of this discussion. Senior Principal Process Engineer disclaimer Much of this encounter note is an electronic concrete truck driver spoken language to printed text. Electronic concrete truck driver of the spoken language may permit errors. Although I have reviewed the note, some errors may still exist. Critical Care Critical Care Time Critical Care Time: No
--- NOTE | 2024-04-24 09:26 | PC.NURSE ---
Notified RAD of XRAY order
--- NOTE | 2024-04-24 11:09 | PC.NURSE ---
MACARIO applied to pts left ankle and foot area
== END 2024-04-24 11:11 | disposition home or self-care (01) ==
PROVIDERS: Emergency Provider Emergency Medicine; PCP Internal Medicine
DX: S93.602A Unspecified sprain of left foot, initial encounter (principal); J44.9 Chronic obstructive pulmonary disease, unspecified; E78.5 Hyperlipidemia, unspecified; M81.8 Other osteoporosis without current pathological fracture; E27.8 Other specified disorders of adrenal gland; F17.210 Nicotine dependence, cigarettes, uncomplicated; X50.1XXA Overexertion from prolonged static or awkward postures, initial encounter; Y92.9 Unspecified place or not applicable
CPT/HCPCS: 73630; 99283

== ENCOUNTER 2024-08-06 18:07 | Emergency (ER) | payer MEDICARE, MEDICAID, SELFPAY ==
[2024-08-06 18:08] VITALS: BP 153/72; PULSE 94; RESP 20; TEMP 36.8; O2SAT 95; BMI 28.7
--- NOTE | 2024-08-06 18:21 | XR_ITS ---
PROCEDURE INFORMATION: Exam: XR Left Shoulder Exam date and time: 08/06/2024 6:24 PM Age: 59 years old Clinical indication: Pain; Left; Patient HX: PT states that she reached up and hurt her shoulder; Additional info: Shoulder pain TECHNIQUE: Imaging protocol: Radiologic exam of the left shoulder. Views: 2 or more views. COMPARISON: CR XR SHOULDER LT MIN 2V 11/10/2021 7:44 AM FINDINGS: Bones/joints: Healed fracture in the mid left clavicle with malunion. There is approximately 4 cm overlap of the proximal and distal bone fragments. Acromioclavicular joint remains congruent. No evidence of acute fracture or dislocation. Soft tissues: Unremarkable. IMPRESSION: 1. No evidence of acute osseous abnormality in the left shoulder. 2. Healed fracture in the mid left clavicle with malunion.
--- NOTE | 2024-08-06 18:22 | HMH.EDGENADL ---
Discharge Plan Disposition Patient Disposition: Home, Self-Care Prescriptions Prescriptions: No Action gabapentin 800 mg tablet 800 mg PO TID Qty: 90 3RF ibuprofen 600 mg tablet 600 mg PO Q6HP PRN (Reason: Mild Pain) Qty: 30 0RF mirabegron 25 mg tablet extended release 24 hr 25 mg PO DAILY Qty: 30 2RF alendronate 70 mg tablet 70 mg PO WEEKLY Qty: 12 2RF cholecalciferol (vitamin D3) 1,250 mcg (50,000 unit) capsule See Rx Instructions .ROUTE .COMPLEX Qty: 14 1RF Dose Instruction: TAKE 1 CAPSULE BY MOUTH ONCE A WEEK Rx Instructions: TAKE 1 CAPSULE BY MOUTH ONCE A WEEK cholecalciferol (vitamin D3) 25 mcg (1,000 unit) capsule See Rx Instructions .ROUTE .COMPLEX Qty: 30 3RF Dose Instruction: TAKE 1 CAPSULE BY MOUTH EVERY DAY Rx Instructions: TAKE 1 CAPSULE BY MOUTH EVERY DAY fluticasone propionate [Allergy Relief (fluticasone)] 50 mcg/actuation spray,suspension See Rx Instructions .ROUTE .COMPLEX Qty: 16 5RF Dose Instruction: USE 1 SPRAY IN EACH NOSTRIL ONCE DAILY Rx Instructions: USE 1 SPRAY IN EACH NOSTRIL ONCE DAILY albuterol sulfate 90 mcg/actuation HFA aerosol inhaler 1 inh inhalation QID Qty: 8.5 2RF desvenlafaxine succinate [Pristiq] 100 mg tablet extended release 24 hr 100 mg PO DAILY Qty: 30 2RF omeprazole 20 mg capsule,delayed release(DR/EC) See Rx Instructions .ROUTE .COMPLEX Qty: 180 0RF Dose Instruction: TAKE 1 CAPSULE BY MOUTH TWICE DAILY FOR GERD Rx Instructions: TAKE 1 CAPSULE BY MOUTH TWICE DAILY FOR GERD tizanidine 2 mg tablet See Rx Instructions .ROUTE .COMPLEX Qty: 120 0RF Dose Instruction: TAKE 1 TABLET BY MOUTH EVERY 8 HOURS NEEDED FOR MUSCLE SPASTICITY (CAN TAKE 2 AT BEDTIME) MAY CAUSE DROWSINESS Rx Instructions: TAKE 1 TABLET BY MOUTH EVERY 8 HOURS NEEDED FOR MUSCLE SPASTICITY (CAN TAKE 2 AT BEDTIME) MAY CAUSE DROWSINESS bupropion HCl 150 mg tablet sustained-release 12 hr See Rx Instructions .ROUTE .COMPLEX Qty: 180 0RF Dose Instruction: TAKE 1 TABLET BY MOUTH TWICE DAILY Rx Instructions: TAKE 1 TABLET BY MOUTH TWICE DAILY atorvastatin 10 mg tablet See Rx Instructions .ROUTE .COMPLEX Qty: 90 2RF Dose Instruction: TAKE ONE TABLET BY MOUTH AT BEDTIME Rx Instructions: TAKE ONE TABLET BY MOUTH AT BEDTIME trazodone 50 mg tablet 50 mg PO DAILY Qty: 30 2RF fluticasone furoate-vilanterol [Breo Ellipta] 100-25 mcg/dose blister with device See Rx Instructions .ROUTE .COMPLEX Qty: 60 1RF Dose Instruction: USE 1 INHALATION BY MOUTH ONCE DAILY Rx Instructions: USE 1 INHALATION BY MOUTH ONCE DAILY Linzess 72 mcg capsule See Rx Instructions .ROUTE .COMPLEX Qty: 30 2RF Dose Instruction: TAKE 1 CAPSULE BY MOUTH ONCE DAILY Rx Instructions: TAKE 1 CAPSULE BY MOUTH ONCE DAILY Referrals Follow up/Referrals: Victor Manuel Hernández APRN [Primary Care Provider] - See instructions Praveen Velasquez DO [Staff Physician] - See instructions Activity Restrictions/Add. Instructions Additional Instructions/Restrictions: Recommend taking Tylenol and ibuprofen for pain as needed. Follow-up with orthopedics. Please return the emerged part with any new, concerning, worsening symptoms. Clinical Impressions Clinical Impression: Acute shoulder pain Qualifiers: Laterality: left Qualified Code(s): M25.512 - Pain in left shoulder Print Language Print Language: Azeri Discharge ED Provider: Suleman Oleary General Adult HPI General Chief complaint: PAIN Stated complaint: left shoulder pain Time Seen by Provider: 08/06/24 18:17 Mode of Arrival: Ambulatory Source of Information: Patient Limitations: No Limitations History of Present Illness HPI narrative: This is a 59-year-old female with a past medical history of osteoporosis, COPD, neuropathy who presents with atraumatic left shoulder pain. States that she was reaching to grab something off the top shelf whenever she experienced acute onset left shoulder pain. States that she has had limited range of motion of her shoulder since then. Denies any numbness or tingling of hand. Took 600 mg ibuprofen prior to arrival. Related Data Previous Rx's ?Medication ?Instructions ?Recorded alendronate 70 mg tablet 70 mg PO WEEKLY #12 tabs 08/23/21 fluticasone propionate 50 See Rx Instructions .Route 12/19/22 mcg/actuation nasal .COMPLEX #16 grams spray,suspension (Allergy Relief (fluticasone)) albuterol sulfate 90 mcg/actuation 1 inh inhalation QID COPD #8.5 10/16/23 aerosol inhaler grams gabapentin 800 mg tablet 800 mg PO TID Pain #90 tabs 04/25/24 ibuprofen 600 mg tablet 600 mg PO Q6HP PRN Mild Pain #30 04/25/24 tabs desvenlafaxine succinate 100 mg 100 mg PO DAILY #30 tabs 05/20/24 tablet,extended release 24 hr (Pristiq) omeprazole 20 mg capsule,delayed See Rx Instructions .Route 06/16/24 release .COMPLEX #180 caps bupropion HCl 150 mg tablet,12 hr See Rx Instructions .Route 06/19/24 sustained-release .COMPLEX #180 tabs tizanidine 2 mg tablet See Rx Instructions .Route 06/19/24 .COMPLEX #120 tabs atorvastatin 10 mg tablet See Rx Instructions .Route 07/08/24 .COMPLEX #90 ea trazodone 50 mg tablet 50 mg PO DAILY #30 tabs 07/08/24 fluticasone furoate 100 See Rx Instructions .Route 07/21/24 mcg-vilanterol 25 mcg/dose .COMPLEX #60 ea inhalation powder (Breo Ellipta) linaclotide 72 mcg capsule See Rx Instructions .Route 07/28/24 (Linzess) .COMPLEX #30 caps mirabegron 25 mg tablet,extended 25 mg PO DAILY #30 tabs 07/30/24 release 24 hr cholecalciferol (vitamin D3) 1,250 See Rx Instructions .Route 08/06/24 mcg (50,000 unit) capsule .COMPLEX #14 caps cholecalciferol (vitamin D3) 25 See Rx Instructions .Route 08/06/24 mcg (1,000 unit) capsule .COMPLEX #30 caps Allergies Allergy/AdvReac Type Severity Reaction Status Date / Time No Known Allergies Allergy Verified 08/06/24 09:33 [facility] Disclaimer: The information contained in this section may have been updated after the patient was seen, as this information can be updated by other users. Medical History COPD exacerbation Rib contusion Bronchitis Pleurisy Dog bite Laceration Neck strain Tobacco use Hyperlipidemia Patient's last lipid panel was done in March 2023. Total cholesterol 173 LDL of 78 HDL of 77 and triglycerides of 51. This is an excellent panel I will keep her on the atorvastatin. IBS (irritable bowel syndrome) Anxiety Chronic prescription benzodiazepine use We were going to take longer to taper this patient off her clonazepam but she stopped it completely. I think she is going through a little bit of withdrawals at this point. But I would not put her back on clonazepam just based on what I saw today. Will start buspirone at 5 mg twice a day. COPD (chronic obstructive pulmonary disease) Patient is on metered-dose inhalers. I think at her return we will consider sending her to pulmonology and getting PFTs. Discussed with her the need to quit smoking which she has not done yet. Primary unilateral adrenal hyperplasia Patient has bilateral adrenal hyperplasia based on the CT scan done August 09. This was not read in detail and no other imaging has been done since that time. We did get a CT scan of the abdomen on September 14 of this year. It did reveal bilateral adrenal hyperplasia . We will get a 24-hour free cortisol level as well as a dexamethasone depression test. Addition we will send this patient to endocrinology once these tests are done. Will leave further testing up to them. Will try to get this done as soon as possible. This patient has osteoporosis she has obesity she has a number of other clinical findings that would be consistent with an ACTH independent lesion. Insomnia Patient states that the amitriptyline was of no help for sleep. We will try tizanidine that she has not been on in the past. Will try this to the 3 times daily dosing of 2 mg 2 mg and 4 mg at bedtime. She can take this as needed and I have discussed this with her as well as the side effects of this medication. Osteoporosis Patient had bone densitometry done in April 2022. This revealed osteoporosis. She is on alendronate 70 mg/week. Additionally she is on vitamin D at 50,000 mcg/week and 1000 mcg/day. Will check a vitamin D the next time she comes in. Her last 2 vitamin D levels were within normal limits. The most recent was April 11 and was 30.8. Additionally she needs to be evaluated for her adrenal hyperplasia see above. Surgical History No pertinent past surgical history Family History Family/Other No significant family history Social History Smoking Status: Current every day smoker tobacco type: cigarettes packs per day: 1 alcohol intake: never counseling provided: none substance use type: denies use current occupational status: other Travel in the last 8 weeks: None household members: spouse housing: house current occupational exposures/hazards: No caffeine: Yes Have you lived/traveled outside [place] in past 30 days?: No Contact w/someone who lives/traveled outside [place] past 30 days?: No Exposure to someone with infectious disease in past 14 days?: No Do you have a fever (greater than 100.4 F or 38 C)?: No Have you tested positive for COVID-19: No Exposed to someone with COVID-19 in past 14 days?: No Do you have a sore throat?: No Do you have a cough?: No Do you have any weakness?: No Do you have any diarrhea?: No Are you experiencing any unusual bleeding?: No Do you have any muscle aches/pain?: No Do you have any abdominal pain?: No Are you experiencing loss of taste or smell?: No Other Medical History Have you received the Flu Vaccine for this season: No Have you received the Pneumonia Vaccine: No ROS Obtained: Yes All systems reviewed & no additional complaints except as documented Physical Exam General General appearance: alert and in no apparent distress Eye Eye exam: Present normal appearance, PERRL and EOMI Respiratory Respiratory exam: Absent respiratory distress Cardiovascular Cardiovascular exam: Present regular rate Abdominal Exam Abdominal exam: Present distention Extremities Exam Extremities exam: Present normal inspection and other (LUE: Tenderness of the proximal shoulder. 2+ radial pulse. Neurovascular intact distally. Pain exacerbated with flexion at the shoulder and internal rotation.) Neurological Exam Neurological exam: Present alert and oriented X3 Skin Skin exam: Present warm and dry Medical Decision Making Medical Records Medical records reviewed: Yes I reviewed the patient's medical records. Screening: Per USPSTF and CDC recommendations, given the prevalence of disease in our region, it is our hospital?s policy to screen for HIV and viral Hepatitis for all patients aged 18 and over and those with ongoing risk factors. Kj Inquiry Pt receiving controlled substance: No Vital Signs: 08/06/24 18:08 Temperature 98.2 F Temperature Source Oral Pulse Rate [Right Radial] 94 H Respiratory Rate 20 Blood Pressure [Right Arm] 153/72 H Blood Pressure Mean [Right Arm] 99 02 Sat by Pulse Oximetry 95 Oxygen Delivery Method Room Air Orders (Tests/Meds): ED MEDICATIONS Discontinued Medications Generic Name Dose Route Start Last Admin Trade Name Dom PRN Reason Stop Dose Admin Acetaminophen 1,000 mg 08/06/24 18:21 08/06/24 18:53 Acetaminophen 500mg Tab PO 08/06/24 18:22 1,000 mg ONCE ONE Administration ORDERS Category Date Time Status XR shoulder LT min 2V Stat Exams 08/06/24 18:21 Taken Medical Decision Narrative: In summary, this 59-year-old female with a past medical history of COPD, osteoporosis, neuropathy presents to the emergency department today with atraumatic left shoulder pain. On initial evaluation patient is afebrile, hemodynamically stable, nontoxic-appearing. Differential diagnosis includes but is not limited to impingement syndrome, osteoarthritis, fracture. Based on these concerns, I ordered x-ray of the left shoulder. Patient received Tylenol 1000 mg for treatment. XR personally interpreted demonstrates no acute osseous pathology. Most likely etiology of patient's pain is a rotator cuff injury. Patient is to follow-up with orthopedic surgery. Ultimately discharged in stable condition. Critical Care Critical Care Time Critical Care Time: No
[2024-08-06] MEDS: ACETAMINOPHEN 500MG TAB 1000 MG PO (18:53)
[2024-08-06 19:13] VITALS: BP 140/72; PULSE 84; RESP 14; TEMP 36.6; O2SAT 98
== END 2024-08-06 19:19 | disposition home or self-care (01) ==
PROVIDERS: Emergency Provider Student in an Organized Health Care Education/Training Program; PCP Nurse Practitioner Family
DX: M25.512 Pain in left shoulder (principal); X50.9XXA Other and unspecified overexertion or strenuous movements or postures, initial encounter; Y93.89 Activity, other specified; Y92.9 Unspecified place or not applicable
CPT/HCPCS: 73030; 99283

== ENCOUNTER 2024-08-11 10:33 | Outpatient (CLI) | payer MEDICARE, MEDICAID, SELFPAY ==
[2024-08-11 11:19] LABS: Hematocrit 42.8 % (37.0-47.0); Mean Corpuscular HGB Conc 32.7 g/dL (31.8-35.4); Mean Corpuscular Hemoglobin 29.4 pg (27.0-31.2); Mean Corpuscular Volume 89.7 fl (81-99); Mean Platelet Volume 11.3 fl (7.4-10.4); Platelet Count 224 K/mm3 (142-424); Red Blood Count 4.77 M/mm3 (4.20-5.40); Red Cell Distribution Width 14.3 % (11.5-17.5); White Blood Count 7.6 K/mm3 (4.8-10.8)
[2024-08-11 11:20] LABS: Alanine Aminotransferase 28 U/L (12-78); Albumin Level 4.2 g/dl (3.5-5.0); Albumin/Globulin Ratio 1.8 (1.1-1.8); Alkaline Phosphatase 77 U/L (38-126); Aspartate Amino Transferase 36 U/L (14-36); Basophils % 0.4 % (0.1-2.0); Bilirubin,Total 0.5 mg/dl (0.2-1.3); Blood Urea Nitrogen 14 mg/dl (7-17); Calcium 9.9 mg/dl (8.4-10.2); Carbon Dioxide 29 mmol/L (22.0-30.0); Chloride 105 mmol/L (98-107); Cholesterol 190 mg/dl (140-200); Eosinophils % 1.7 % (0.1-12.0); Estimated Glomerular Filt Rate 86 ml/min (>60); GFR (African American) 104 ML/MIN (>60); Globulin 2.4 g/dL (1.3-3.2); Glucose 88 mg/dl (74-100); HDL Cholesterol 97 mg/dl (40-60); Lymphocytes # 3.6 K/mm3 (0.7-4.5); Lymphocytes % 47.4 % (10-50); Monocytes # 0.8 K/mm3 (0.1-1.0); Monocytes % 10.7 % (1.7-9.3); Neutrophils % 39.4 % (37.0-80.0); Sodium 138 mmol/L (136-145); Total Protein,Serum 6.6 g/dl (6.3-8.2); Triglycerides 66 mg/dl (30-150); VLDL Cholesterol 13 mg/dL (0-40)
[2024-08-11 11:31] LABS: Direct LDL Cholesterol 92.51 mg/dL (100-129)
[2024-08-11 11:48] LABS: Anion Gap 8.3 mEq/L (5-15); Potassium 4.3 mmoL/L (3.5-5.1)
[2024-08-11 11:51] LABS: Thyroid Stimulating Hormone 1.73 uIU/mL (0.465-4.68)
== END 2024-08-11 23:59 | disposition home or self-care (01) ==
LOC: LAB 10:35
PROVIDERS: PCP Internal Medicine; Visit Provider Nurse Practitioner Family
DX: E78.5 Hyperlipidemia, unspecified (principal)
CPT/HCPCS: 36415; 80053; 80061; 84443; 85025

== ENCOUNTER 2025-02-19 09:15 | Outpatient (CLI) | payer MEDICARE, MEDICAID, SELFPAY ==
--- OUTSIDE RECORDS SUMMARY | 2025-02-23 11:43 | XMS_ITS | Encounter Summary ---
Author Organization Healthcare Address [address] [place] [address] Care Team Providers Care Embossing Press Operator Molded Goods Name Role Phone Penelope Contreras CORN PRESS OPERATOR Primary Care Provider +1- [phone] Encounter Details Date Type Department Care Team (Late st Contact Info) Description 10/18/2021 [facility] [address] [place] [address] Victor Manuel Hernández APRN [address] [place] [address] Arachnoid cyst (Primary Dx) Social [...] cysts documented in this encounter Care Teams Embossing Press Operator Molded Goods Relationship Specialty Start Date End Date Penelope Contreras APRN [address] [place] [address] PCP - General 12/31/20 documented as of this encounter
--- OUTSIDE RECORDS SUMMARY | 2025-02-23 11:43 | XMS_ITS | Clinical Summary ---
Author Organization Healthcare Address [address] [place] [address] Care Team Providers Care Analysis Intern Name Role Phone Penelope Contreras APPLICATION INTEGRATION ENGINEER Primary Care Provider +1- [phone] Active Problems Problem Noted Date Diagnosed Date [...] 2016 UKY-Zoster Vaccines (1 of 2) 2016 [id number] Vaccine (3 - 2023- season) 2024 05/25/2021, [...] complete this topic Insurance MEDICARE Care Teams Analysis Intern Relationship Specialty Start Date End Date Penelope Contreras APRN [address] [place], [place] [id number] PCP - General 12/31/20
--- OUTSIDE RECORDS SUMMARY | 2025-02-23 11:43 | XMS_ITS | Encounter Summary ---
Author Organization Healthcare Address [address] [id number] Care Team Providers Care Paper Tube Machine Operator Name Role Phone Penelope Contreras APRN Primary Care Provider +1- [phone] Reason for Referral * Consultation (Routine) - Closed Specialty Diagnoses / Procedures Referred By Contgerman t Referred To Contact Neurosurgery Diagnoses Cerebral cyst Alin Bee MD [address] [place] [address] Phone: tel: fax: Referral ID Status Reason Start Date Expiration Date V isits Requested Visits Authorized [id number] Closed Specialty Services Required 01/27/2021 07/26/2021 1 1 Encounter Details Date Type Department Care Team (Late st Contact Info) Description 01/27/2021 [facility] [address] [place] [address] Alin Bee MD [address] [place] [address] Cerebral cyst (Primary Dx) Social History Tobacco [...] cysts documented in this encounter Care Teams Paper Tube Machine Operator Relationship Specialty Start Date End Date Penelope Contreras APRN [address] [place] [address] PCP - General 12/31/20 documented as of this encounter
== END 2025-02-19 23:59 | disposition home or self-care (01) ==
LOC: LAB.DROPOF 02-23 11:30
PROVIDERS: PCP Obstetrics & Gynecology; Visit Provider Obstetrics & Gynecology
DX: R32 Unspecified urinary incontinence (principal)
CPT/HCPCS: 87086

== ENCOUNTER 2025-02-19 22:37 | Emergency (ER) | payer MEDICARE, MEDICAID, SELFPAY ==
[2025-02-19 23:24] VITALS: BP 190/96; PULSE 85; RESP 16; TEMP 36.7; O2SAT 97; BMI 26.2
--- NOTE | 2025-02-19 23:39 | CT_ITS ---
PROCEDURE INFORMATION: Exam: CT Abdomen And Pelvis With Contrast Exam date and time: 02/20/2025 12:16 AM Age: 59 years old Clinical indication: Abdominal pain; Additional info: Abd pain knot upper abd TECHNIQUE: Imaging protocol: Computed tomography of the abdomen and pelvis with contrast. Radiation optimization: All CT scans at this facility use at least one of these dose optimization techniques: automated exposure control; mA and/or kV adjustment per patient size (includes targeted exams where dose is matched to clinical indication); or iterative reconstruction. Contrast material: ISOVUE; Contrast volume: 75 ml; Contrast route: IV; COMPARISON: CT ABDOMEN WO/W CON 09/14/2023 8:49 AM FINDINGS: Liver: Fatty liver infiltration. No mass. Gallbladder and biliary ducts: Normal. No calcified stones. No ductal dilation. Pancreas: Normal. No ductal dilation. Spleen: Normal. No splenomegaly. Adrenal glands: Similar left adrenal nodule measuring 2.1 cm. Similar right adrenal nodule measuring 2.3 cm. Kidneys and ureters: No nephroureterolithiasis or hydroureter. No nephroureterolithiasis or hydroureter. Stomach and bowel: Scattered colonic diverticula without pericolonic fat stranding. Nonobstructive fluid-filled small bowel loops. Appendix: No evidence of appendicitis. Intraperitoneal space: Unremarkable. No free air. No significant fluid collection. Vasculature: Atherosclerotic calcification of aortoiliac arteries without aneurysm. Lymph nodes: Unremarkable. No enlarged lymph nodes. Urinary bladder: Unremarkable as visualized. Reproductive: Unremarkable as visualized. Bones/joints: Unremarkable. No acute fracture. Soft tissues: Chronic anterior abdominal fat containing hernia. IMPRESSION: 1. Nonobstructive fluid-filled small bowel loops. Correlate for low-grade enteritis symptoms. 2. Chronic anterior abdominal wall fat containing hernia. 3. Colonic diverticulosis. 4. Fatty liver infiltration.
--- NOTE | 2025-02-19 23:39 | XR_ITS ---
PROCEDURE INFORMATION: Exam: XR Chest Exam date and time: 02/20/2025 12:03 AM Age: 59 years old Clinical indication: Pain; Other: Abd; Additional info: Abd pain TECHNIQUE: Imaging protocol: Radiologic exam of the chest. Views: 1 view. COMPARISON: CT ANGIO CHEST PE PROTOCOL 08/16/2021 7:33 PM FINDINGS: Lungs: Interstitial prominence. Pleural spaces: Unremarkable. No pleural effusion. No pneumothorax. Heart/Mediastinum: Unremarkable. No cardiomegaly. Bones/joints: Unremarkable. IMPRESSION: Interstitial prominence. Correlate for mild CHF/pulmonary edema symptoms.
[2025-02-19 23:45] VITALS: BP 165/99; PULSE 86; O2SAT 94
--- NOTE | 2025-02-19 23:49 | HMH.EDGENADL ---
Discharge Plan Disposition Patient Disposition: Home, Self-Care Condition: Good Prescriptions Prescriptions: No Action alendronate 70 mg tablet 70 mg PO WEEKLY Qty: 12 2RF cholecalciferol (vitamin D3) 25 mcg (1,000 unit) capsule See Rx Instructions .ROUTE .COMPLEX Qty: 30 3RF Dose Instruction: TAKE 1 CAPSULE BY MOUTH EVERY DAY Rx Instructions: TAKE 1 CAPSULE BY MOUTH EVERY DAY Gemtesa 75 mg tablet 75 mg PO DAILY Qty: 30 2RF ceftriaxone 1 gram recon soln 1 g IM ONCE Qty: 1 0RF dexamethasone sodium phosphate 4 mg/mL solution 8 mg IM ONCE Qty: 2 0RF fluticasone furoate-vilanterol [Breo Ellipta] 100-25 mcg/dose blister with device See Rx Instructions .ROUTE .COMPLEX Qty: 60 3RF Dose Instruction: USE 1 INHALATION BY MOUTH ONCE DAILY Rx Instructions: USE 1 INHALATION BY MOUTH ONCE DAILY albuterol sulfate 90 mcg/actuation HFA aerosol inhaler 1 inh inhalation QID Qty: 8.5 2RF azithromycin 250 mg tablet See Rx Instructions PO .COMPLEX Qty: 6 0RF Rx Instructions: take 500 mg today (day 1), then 250 mg for 4 days (days 2-5) prednisone 20 mg tablet 20 mg PO BID 5 Days Qty: 10 0RF gabapentin 800 mg tablet See Rx Instructions .ROUTE .COMPLEX Qty: 90 2RF Dose Instruction: TAKE 1 TABLET BY MOUTH THREE TIMES A DAY FOR PAIN MAY CAUSE DROWSINESS Rx Instructions: TAKE 1 TABLET BY MOUTH THREE TIMES A DAY FOR PAIN MAY CAUSE DROWSINESS benzonatate 100 mg capsule 100 mg PO TID PRN (Reason: cough) Qty: 30 0RF atorvastatin 10 mg tablet See Rx Instructions .ROUTE .COMPLEX Qty: 90 2RF Dose Instruction: TAKE ONE TABLET BY MOUTH AT BEDTIME Rx Instructions: TAKE ONE TABLET BY MOUTH AT BEDTIME bupropion HCl 150 mg tablet sustained-release 12 hr See Rx Instructions .ROUTE .COMPLEX Qty: 180 2RF Dose Instruction: TAKE 1 TABLET BY MOUTH TWICE DAILY Rx Instructions: TAKE 1 TABLET BY MOUTH TWICE DAILY fluticasone propionate [Allergy Relief (fluticasone)] 50 mcg/actuation spray,suspension See Rx Instructions .ROUTE .COMPLEX Qty: 16 5RF Dose Instruction: USE 1 SPRAY IN EACH NOSTRIL ONCE DAILY Rx Instructions: USE 1 SPRAY IN EACH NOSTRIL ONCE DAILY mirabegron 50 mg tablet extended release 24 hr 50 mg PO DAILY Qty: 30 2RF ibuprofen 600 mg tablet 600 mg PO Q6HP PRN (Reason: Mild Pain) Qty: 30 2RF desvenlafaxine succinate 100 mg tablet extended release 24 hr See Rx Instructions .ROUTE .COMPLEX Qty: 30 1RF Dose Instruction: TAKE 1 TABLET BY MOUTH ONCE DAILY Rx Instructions: TAKE 1 TABLET BY MOUTH ONCE DAILY cetirizine 10 mg tablet See Rx Instructions .ROUTE .COMPLEX Qty: 30 2RF Dose Instruction: TAKE 1 TABLET BY MOUTH ONCE DAILY Rx Instructions: TAKE 1 TABLET BY MOUTH ONCE DAILY tizanidine 2 mg tablet See Rx Instructions .ROUTE .COMPLEX Qty: 120 1RF Dose Instruction: TAKE 1 TABLET BY MOUTH EVERY 8 HOURS NEEDED FOR MUSCLE SPASTICITY (CAN TAKE 2 AT BEDTIME) MAY CAUSE DROWSINESS Rx Instructions: TAKE 1 TABLET BY MOUTH EVERY 8 HOURS NEEDED FOR MUSCLE SPASTICITY (CAN TAKE 2 AT BEDTIME) MAY CAUSE DROWSINESS omeprazole 20 mg capsule,delayed release(/EC) See Rx Instructions .ROUTE .COMPLEX Qty: 180 3RF Dose Instruction: TAKE 1 CAPSULE BY MOUTH TWICE DAILY FOR GERD Rx Instructions: TAKE 1 CAPSULE BY MOUTH TWICE DAILY FOR GERD quetiapine 100 mg tablet 100 mg PO HS Qty: 90 3RF Linzess 72 mcg capsule See Rx Instructions .ROUTE .COMPLEX Qty: 30 0RF Dose Instruction: TAKE 1 CAPSULE BY MOUTH ONCE DAILY Rx Instructions: TAKE 1 CAPSULE BY MOUTH ONCE DAILY Referrals Follow up/Referrals: Victor Manuel Hernández APRN [Primary Care Provider, Family Practice] - See instructions Harish Monae MD [Staff Physician, General Surgery] - See instructions Referral Note: Painful fat-containing ventral wall hernia Activity Restrictions/Add. Instructions Additional Instructions/Restrictions: Your evaluated in the ER and are believed to be appropriate for discharge at this time. Take Tylenol and ibuprofen if needed for pain, do not exceed the recommended dose on the bottle. Drink water and eat a small snack each time you take these medications to avoid side effects. Call the surgery office and make an appointment for outpatient follow-up to reassess your hernia and be considered for possible surgery. You have been referred to Dr. Monae for this purpose. Make an appointment with your primary care doctor for reevaluation in a few days as well. Return to the ER with any new, worsening, or otherwise concerning symptoms as discussed, including but not limited to worsening pain, redness over the hernia, fevers, or other symptoms of infection. Clinical Impressions Clinical Impression: Ventral hernia Instructions Patient Instructions: DI for Acute Abdominal Pain, DI for Ventral Hernia Print Language Print Language: Malagasy Discharge ED Provider: Tutu Alcocer General Adult HPI General Chief complaint: Abdominal Pain Stated complaint: Knot on top of stomach hurting Time Seen by Provider: 02/19/25 23:38 Mode of Arrival: Ambulatory Source of Information: Patient Description of Symptoms (Recalled from ER Triage Doc. by RN): Patient ambulatory to ED with complaints of knot on stomach. Patient states that she has had this possible hernia for as long as she knows. States that this area became larger in size and pain increased. Describes pain os constant sharp pain, and sore to touch. Denies n/v/d. last BM was this am described as diarrhea. History of Present Illness HPI narrative: 59-year-old female presents to the ER with complaints of a knot on the stomach . Patient reports she has had this for as long as she can remember but it used to be small, less than the size of a quarter, she states today it suddenly became larger and painful. She states she is having constant sharp pain and it is worse with movement. She states it is very sore to the touch. She denies nausea, vomiting, she states she had a very small, watery bowel movement this morning but she normally has a soft, normal sized bowel movement every morning. She states the bowel movement was not bloody or black. She has never had surgery on this before. She is currently on steroids and azithromycin for a sinus infection. 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 No other complaints or concerns. No fevers or chills, no chest pain or difficulty breathing. Related Data Previous Rx's ?Medication ?Instructions ?Recorded alendronate 70 mg tablet 70 mg PO WEEKLY #12 tabs 08/23/21 atorvastatin 10 mg tablet See Rx Instructions .Route 07/08/24 .COMPLEX #90 ea cholecalciferol (vitamin D3) 25 See Rx Instructions .Route 08/06/24 mcg (1,000 unit) capsule .COMPLEX #30 caps bupropion HCl 150 mg tablet,12 hr See Rx Instructions .Route 09/16/24 sustained-release .COMPLEX #180 tabs fluticasone propionate 50 See Rx Instructions .Route 09/21/24 mcg/actuation nasal .COMPLEX #16 grams spray,suspension (Allergy Relief (fluticasone)) mirabegron 50 mg tablet,extended 50 mg PO DAILY #30 tabs 10/10/24 release 24 hr ibuprofen 600 mg tablet 600 mg PO Q6HP PRN Mild Pain #30 11/27/24 tabs cetirizine 10 mg tablet See Rx Instructions .Route 01/15/25 .COMPLEX #30 tabs desvenlafaxine succinate 100 mg See Rx Instructions .Route 01/15/25 tablet,extended release 24 hr .COMPLEX #30 tabs tizanidine 2 mg tablet See Rx Instructions .Route 01/15/25 .COMPLEX #120 tabs omeprazole 20 mg capsule,delayed See Rx Instructions .Route 01/25/25 release .COMPLEX #180 caps quetiapine 100 mg tablet 100 mg PO HS #90 tabs 02/12/25 linaclotide 72 mcg capsule See Rx Instructions .Route 02/16/25 (Linzess) .COMPLEX #30 caps albuterol sulfate 90 mcg/actuation 1 inh inhalation QID COPD #8.5 02/17/25 aerosol inhaler grams azithromycin 250 mg tablet See Rx Instructions PO .COMPLEX #6 02/17/25 tabs benzonatate 100 mg capsule 100 mg PO TID PRN cough #30 caps 02/17/25 fluticasone furoate 100 See Rx Instructions .Route 02/17/25 mcg-vilanterol 25 mcg/dose .COMPLEX #60 ea inhalation powder (Breo Ellipta) gabapentin 800 mg tablet See Rx Instructions .Route 02/17/25 .COMPLEX #90 tabs prednisone 20 mg tablet 20 mg PO BID 5 days #10 tabs 02/17/25 vibegron 75 mg tablet (Gemtesa) 75 mg PO DAILY #30 tabs 02/19/25 Allergies Allergy/AdvReac Type Severity Reaction Status Date / Time No Known Allergies Allergy Verified 02/19/25 09:09 [facility] Disclaimer: The information contained in this section may have been updated after the patient was seen, as this information can be updated by other users. Medical History COPD exacerbation Rib contusion Bronchitis Pleurisy Dog bite Laceration Neck strain Tobacco use Hyperlipidemia Patient's last lipid panel was done in March 2023. Total cholesterol 173 LDL of 78 HDL of 77 and triglycerides of 51. This is an excellent panel I will keep her on the atorvastatin. IBS (irritable bowel syndrome) Anxiety Chronic prescription benzodiazepine use We were going to take longer to taper this patient off her clonazepam but she stopped it completely. I think she is going through a little bit of withdrawals at this point. But I would not put her back on clonazepam just based on what I saw today. Will start buspirone at 5 mg twice a day. COPD (chronic obstructive pulmonary disease) Primary unilateral adrenal hyperplasia Patient has bilateral adrenal hyperplasia based on the CT scan done August 09. This was not read in detail and no other imaging has been done since that time. We did get a CT scan of the abdomen on September 14 of this year. It did reveal bilateral adrenal hyperplasia . We will get a 24-hour free cortisol level as well as a dexamethasone depression test. Addition we will send this patient to endocrinology once these tests are done. Will leave further testing up to them. Will try to get this done as soon as possible. This patient has osteoporosis she has obesity she has a number of other clinical findings that would be consistent with an ACTH independent lesion. Insomnia Patient states that the amitriptyline was of no help for sleep. We will try tizanidine that she has not been on in the past. Will try this to the 3 times daily dosing of 2 mg 2 mg and 4 mg at bedtime. She can take this as needed and I have discussed this with her as well as the side effects of this medication. Osteoporosis Patient had bone densitometry done in April 2022. This revealed osteoporosis. She is on alendronate 70 mg/week. Additionally she is on vitamin D at 50,000 mcg/week and 1000 mcg/day. Will check a vitamin D the next time she comes in. Her last 2 vitamin D levels were within normal limits. The most recent was April 11 and was 30.8. Additionally she needs to be evaluated for her adrenal hyperplasia see above. Surgical History No pertinent past surgical history Family History Family/Other No significant family history Social History Smoking Status: Unknown if ever smoked alcohol intake: never counseling provided: none substance use type: denies use current occupational status: other Travel in the last 8 weeks?: None household members: spouse housing: house current occupational exposures/hazards: No caffeine: Yes Other Medical History Have you received the Flu Vaccine for this season: No Have you received the Pneumonia Vaccine: No ROS Obtained: Yes Systems reviewed as appropriate & no additional complaints except as documented Per HPI Physical Exam General General appearance: alert and in no apparent distress Head Head exam: atraumatic and normocephalic Eye Eye exam: Present PERRL and EOMI ENT ENT exam: Present mucous membranes moist Neck Neck exam: Present normal inspection and full ROM Chest Chest inspection: Present symmetric chest wall rise Respiratory Respiratory exam: Present normal lung sounds bilaterally; Absent respiratory distress, wheezes or stridor Cardiovascular Cardiovascular exam: Present regular rate and normal rhythm Abdominal Exam Abdominal exam: Present soft, tenderness (Epigastric with palpable mass) and hernia (Palpable mass in the epigastric region is hard and tender to the touch, no overlying skin changes at this time); Absent distention, guarding or rebound Extremities Exam Extremities exam: Present full ROM Neurological Exam Neurological exam: Present alert and oriented X3; Absent motor sensory deficit Psychiatric Psychiatric exam: Present normal affect and normal mood Skin Skin exam: Present warm and dry Medical Decision Making Medical Records Medical records reviewed: Yes I reviewed the patient's medical records. Screening: Per USPSTF and CDC recommendations, given the prevalence of disease in our region, it is our hospital?s policy to screen for HIV and viral Hepatitis for all patients aged 18 and over and those with ongoing risk factors. Kj Inquiry Pt receiving controlled substance: No Vital Signs: 02/19/25 23:24 02/19/25 23:45 02/20/25 00:00 Temperature 98.1 F Temperature Source Oral Pulse Rate 86 87 Pulse Rate [Right] 85 Respiratory Rate 16 Blood Pressure 165/99 H 155/112 H Blood Pressure [Right Arm] 190/96 H Blood Pressure Mean [Right Arm] 127 Blood Pressure Source [Right Arm] Automatic Cuff Blood Pressure Position [Right Arm] Sitting 02 Sat by Pulse Oximetry 97 94 L 96 Oxygen Delivery Method Room Air 02/20/25 00:30 02/20/25 00:46 Temperature Temperature Source Pulse Rate 81 80 Pulse Rate [Right] Respiratory Rate Blood Pressure 162/87 H 177/102 H Blood Pressure [Right Arm] Blood Pressure Mean [Right Arm] Blood Pressure Source [Right Arm] Blood Pressure Position [Right Arm] 02 Sat by Pulse Oximetry 98 98 Oxygen Delivery Method Lab Data Lab Results 02/20/25 00:01: WBC 10.9 H, RBC 4.53, Hgb 13.5, Hct 41.4, MCV 91.4, MCH 29.8, MCHC 32.6, RDW 13.5, Plt Count 243, MPV 11.5 H, Neut % (Auto) 67.9, Lymph % (Auto) 23.1, [place] % (Auto) 7.9, Eos % (Auto) 0.0 L, Baso % (Auto) 0.3, Neut # (Auto) 7.4, Lymph # (Auto) 2.5, [place] # (Auto) 0.9, Eos # (Auto) 0.0, Baso # (Auto) 0.0, PT 10.3, INR 0.92, Sodium 136, Potassium 3.7, Chloride 97 L, Carbon Dioxide 29, Anion Gap 13.7, BUN 8, Creatinine 0.50 L, Estimated Creat Clear 118, Estimated GFR 127, Est GFR ( Amer) 153, Glucose 109 H, Lactate 0.9, Calcium 9.5, Total Bilirubin 0.4, AST 30, ALT 22, Alkaline Phosphatase 106, Troponin I < 0.01, Total Protein 8.0, Albumin 4.7, Globulin 3.3 H, Albumin/Globulin Ratio 1.4, Lipase 45 02/20/25 00:30: Urine Color Yellow, Urine Appearance Clear, Urine pH 6.5, Ur Specific Phillips <= 1.005, Urine Protein Negative, Urine Glucose (UA) Negative, Urine Ketones Negative, Urine Blood Negative, Urine Nitrate Negative, Urine Bilirubin Negative, Urine Urobilinogen 0.2, Ur Leukocyte Esterase Negative, Urine RBC None, Urine WBC None, Ur Squamous Epith Cells Occasional, Urine Bacteria None 02/20/25 00:01 02/20/25 00:01 Orders (Tests/Meds): ED MEDICATIONS Discontinued Medications Generic Name Dose Route Start Last Admin Trade Name Freq PRN Reason Stop Dose Admin Iopamidol 75 ml 02/20/25 00:16 02/20/25 00:18 Iopamidol-370 (76%);100ml Bottle IV 02/20/25 00:17 75 ml ONCE ONE Administration Sodium Chloride 10 ml 02/20/25 00:16 02/20/25 00:18 Sodium Chloride 0.9% 10ml Syr (Rad Only) IV 02/20/25 00:17 10 ml ONCE ONE Administration ORDERS Category Date Time Status CT abdomen pelvis w con Stat Cat Scan 02/19/25 23:39 Completed XR chest portable Stat Exams 02/19/25 23:39 Completed Complete Blood Count Auto Diff Stat Lab 02/19/25 23:39 Completed Comprehensive Metabolic Panel Stat Lab 02/19/25 23:39 Completed Lactic Acid Stat Lab 02/19/25 23:39 Completed Lipase Stat Lab 02/19/25 23:39 Completed Prothrombin Time INR Stat Lab 02/19/25 23:39 Completed Troponin I Q3H Lab 02/20/25 02:45 Ordered Troponin I Q3H Lab 02/20/25 05:45 Ordered Troponin I Stat Lab 02/19/25 23:39 Completed Urinalysis and Microscopic Stat Lab 02/20/25 00:30 Completed Medical Decision Narrative: In summary, this 59-year-old female with comorbidities described in the HPI presents to the emergency department today with abdominal pain, knot on the stomach . On initial evaluation patient is hypertensive but otherwise hemodynamically stable, afebrile, GCS 15, exam notable for firm, tender mass in the epigastric region that feels like a hernia without overlying skin changes, remainder of abdominal exam benign, cardiopulmonary exam benign, otherwise well-appearing. Differential diagnosis includes but is not limited to incarcerated hernia, strangulated hernia, bowel obstruction, also considered pancreatitis, atypical presentation of ACS, among others. Ruling out the most morbid conditions stroke my assessment. Based on these concerns, I ordered serum labs, CT imaging, cardiac workup. ECG personally interpreted demonstrates normal sinus rhythm, rate 74, normal axis, normal ND and QTc, no STEMI. I offered the patient pain medications but she states she took ibuprofen prior to arrival and currently her pain is tolerable. Labs personally reviewed demonstrate mild leukocytosis nonspecific and nonactionable, no anemia, normal platelets, CMP nonactionable, initial troponin undetectably low less than 0.01 significantly reassuring since patient has had symptoms for the majority of the day, if they were cardiac in etiology I would suspect her to have troponin elevation at this time. I do not believe serial troponins are indicated. PT/INR normal. Lactic normal at 0.9. Chest x-ray personally turbid it does not demonstrate acute thoracic abnormality, see radiology read for final interpretation. Radiology read discusses CHF/pulmonary edema but patient has no peripheral edema, no shortness of breath, no chest pain. I do not believe this correlates clinically. CT abdomen pelvis personally interpreted demonstrates fat-containing ventral wall hernia, see radiology read for final interpretation. Based on my personal interpretation of CT I called general surgery and spoke with Dr. Monae. We reviewed this case including the fat-containing ventral wall hernia that does not appear to have evidence of strangulation at this time. He indicated that despite it being painful, these can typically be managed on an outpatient basis. He recommended symptomatic management, outpatient follow-up, and strict return precautions for any symptoms of strangulation including overlying redness, fever, worsening pain, etc. I appreciate his recommendations. On reassessment patient continues to be stable and comfortable. She is appropriate for discharge at this time. I discussed the results with her at length. She was given instructions on continued symptomatic monitoring and management, follow-up instructions including referral Dr. Monae, and strict return precautions for the ER. She indicated understanding the patient was discharged in stable condition Critical Care Critical Care Time Critical Care Time: No
--- OUTSIDE RECORDS SUMMARY | 2025-02-19 23:54 | XMS_ITS | Clinical Summary ---
Author Organization Healthcare Address [address] [place] [address] Care Team Providers Care Trimming Cutter Machine Name Role Phone Penelope Contreras HATCHERY LABORER Primary Care Provider [phone]- [phone] Active Problems Problem Noted Date Diagnosed Date Arachnoid cyst 04/06/2021 Family History Medical History Relation Name Comments Arthritis Father Atrial fibrillation Mother Family h istory of atrial fibrillation Hypertension Mother Osteoporosis Mother Relation Name Status Comments Father Mother Social History Tobacco Use Types Packs/Day Years Used Date Smoking Tobacco: Every Day Comments Unknown Sex and Gender Information Value Date Recorded Sex Assigned at Not on file Legal Sex Female 6:09 PM EDT Gender Identity Not on file Sexual Orientation Not on file Plan of Treatment Health Maintenance Due Date Last Done Comments [facility]-Depression Screening 1966 [facility]-HIV Screening 1966 [facility]-Hepatitis C Screening 1966 [facility]-Medicare Annual Wellness (AWV) 1966 [facility]-Infant/Child/Adol SDOH Screenings 1966 [facility]- SDOH Screenings 1984 [facility]-Adult SDOH Screenings 1984 [facility]-Hepatitis B Vaccines (1 of 3 - 19+ 3-dose series) 1985 [facility]-Pap Smear 1987 [facility]-Cervical Cancer Screening 1996 [facility]-HPV/Cotest 1996 CT Colonography 2011 Colonoscopy 2011 FIT-DNA 2011 FIT 2011 FOBT 2011 Sigmoidoscopy 2011 [facility]-Colorectal Cancer Screening 2011 [facility]-Breast Cancer Screening 2016 [facility]-Pneumococcal Vaccine: 50 + Years (1 of 1 - PCV) 2016 [facility]-Zoster Vaccines (1 of 2) 2016 [id number] Vaccine (3 - 2024- season) 2024 05/25/2021, 04/29/2021 [facility]-Influenza Vaccine (Seas[place] n Ended) 2025 07/04/2023 [facility]-DTaP,Tdap,and Td Vaccine s (2 - Td or Tdap) 04/09/2033 04/09/2023 HPV Vaccines Aged Out No longer eligi ble based on patient's age to complete this topic [facility]-HIB Vaccines Aged Out No longer e ligible based on patient's age to complete this topic [facility]-Hepatitis A Vaccines Aged Out No longer eligible based on patient's age to complete this topic [facility]-IPV Vaccines Aged Out No longer e ligible based on patient's age to complete this topic [facility]-Rotavirus Vaccines Aged Out No lo nger eligible based on patient's age to complete this topic Insurance MEDICARE Care Teams Trimming Cutter Machine Relationship Specialty Start Date End Date Penelope Contreras APRN [address] [place], [place] [id number] PCP - General 12/31/20
--- OUTSIDE RECORDS SUMMARY | 2025-02-19 23:54 | XMS_ITS | Encounter Summary ---
Author Organization Healthcare Address [address] [id number] Care Team Providers Care Manager Nicu Name Role Phone Penelope Contreras APRN Primary Care Provider [phone]- [phone] Reason for Referral * Consultation (Routine) - Closed Specialty Diagnoses / Procedures Referred By Contgerman t Referred To Contact Neurosurgery Diagnoses Cerebral cyst Alin Bee MD [address] [place] [address] Phone: tel: fax: Referral ID Status Reason Start Date Expiration Date V isits Requested Visits Authorized [id number] Closed Specialty Services Required 01/27/2021 07/26/2021 1 1 Encounter Details Date Type Department Care Team (Late st Contact Info) Description 01/27/2021 [facility] [address] [place] [address] Alin Bee MD [address] [place] [address] Cerebral cyst (Primary Dx) Social History Tobacco Use Types Packs/Day Years Used Date Smoking Tobacco: Every Day Comments Unknown Sex and Gender Information Value Date Recorded Sex Assigned at Not on file Legal Sex Female 6:09 PM EDT Gender Identity Not on file Sexual Orientation Not on file documented as of this encounter Plan of Treatment Scheduled Referrals Name Type Priority Associated Diagnoses Order Schedule Ambulatory Referral to Neurosurgery Outpatient Referral Routine Cerebral cyst Ordered: 01/27/2021 documented as of this encounter Visit Diagnoses Diagnosis Cerebral cyst- Primary Cerebral cysts documented in this encounter Care Teams Manager Nicu Relationship Specialty Start Date End Date Penelope Contreras APRN [address] [place] [address] PCP - General 12/31/20 documented as of this encounter
--- OUTSIDE RECORDS SUMMARY | 2025-02-19 23:54 | XMS_ITS | Encounter Summary ---
Author Organization Healthcare Address [address] [place] [address] Care Team Providers Care Journeyman Machinist Name Role Phone Penelope Contreras [employer]OOF PLATE MAKER Primary Care Provider [phone]- [phone] Encounter Details Date Type Department Care Team (Late st Contact Info) Description 10/18/2021 [facility] [address] [place] [address] Victor Manuel Hernández APRN [address] [place] [address] Arachnoid cyst (Primary Dx) Social History Tobacco Use Types Packs/Day Years Used Date Smoking Tobacco: Every Day Comments Unknown Sex and Gender Information Value Date Recorded Sex Assigned at Not on file Legal Sex Female 6:09 PM EDT Gender Identity Not on file Sexual Orientation Not on file documented as of this encounter Plan of Treatment Not on file documented as of this encounter Visit Diagnoses Diagnosis Arachnoid cyst- Primary Cerebral cysts documented in this encounter Care Teams Journeyman Machinist Relationship Specialty Start Date End Date Penelope Contreras APRN [address] [place] [address] PCP - General 12/31/20 documented as of this encounter
[2025-02-20] VITALS (7 sets, daily range): BP systolic 128–177; BP diastolic 72–112; PULSE 72–87; RESP 18–21; TEMP 36.7; O2SAT 92–98
[2025-02-20] MEDS: SODIUM CHLORIDE 0.9% 10ML SYR (RAD ONLY) 10 ML IV (00:18)
[2025-02-20] MEDS: IOPAMIDOL-370 (76%);100ML BOTTLE 75 ML IV (00:18)
[2025-02-20 00:20] LABS: Albumin Level 4.7 g/dl (3.5-5.0); Chloride 97 mmol/L (98-107); Potassium 3.7 mmoL/L (3.5-5.1); Sodium 136 mmol/L (136-145)
[2025-02-20 00:21] LABS: Hematocrit 41.4 % (37.0-47.0); Hemoglobin 13.5 g/dL (12.2-16.2); INR 0.92 (0.9-1.1); Immature Granulocytes % 0.8 %; Mean Corpuscular HGB Conc 32.6 g/dL (31.8-35.4); Mean Corpuscular Hemoglobin 29.8 pg (27.0-31.2); Mean Corpuscular Volume 91.4 fl (81-99); Nucleated Red Blood Cells % 0 %; Platelet Count 243 K/mm3 (142-424); Prothrombin Time 10.3 seconds (10.1-12.5); Red Blood Count 4.53 M/mm3 (4.20-5.40); Red Cell Distribution Width-SD 45.6 fL; White Blood Count 10.9 K/mm3 (4.8-10.8)
[2025-02-20 00:23] LABS: Alanine Aminotransferase 22 U/L (12-78); Albumin/Globulin Ratio 1.4 (1.1-1.8); Alkaline Phosphatase 106 U/L (38-126); Anion Gap 13.7 mEq/L (5-15); Aspartate Amino Transferase 30 U/L (14-36); Bilirubin,Total 0.4 mg/dl (0.2-1.3); Blood Urea Nitrogen 8 mg/dl (7-17); Calcium 9.5 mg/dl (8.4-10.2); Carbon Dioxide 29 mmol/L (22.0-30.0); Creatinine Clearance Estimated 118 mL/min (50-200); Creatinine,Serum 0.50 mg/dl (0.52-1.04); Estimated Glomerular Filt Rate 127 ml/min (>60); GFR (African American) 153 ML/MIN (>60); Globulin 3.3 g/dL (1.3-3.2); Glucose 109 mg/dl (74-100); Lipase 45 U/L (23-300); Total Protein,Serum 8.0 g/dl (6.3-8.2)
[2025-02-20 00:34] LABS: Microscopic, Urine URINE MICROSCOPIC (MICROSCOPIC)
[2025-02-20 00:38] LABS: Troponin I < 0.01 ng/ml (0.00-0.034)
--- NOTE | 2025-02-20 00:39 | ECG_ITS ---
APPROVED REPORT Exam: Resting ECG HR:74 bpm ECG Measurements Heart Rate 74 AXES WV 148 P 83 QRSd 99 QRS 77 QT 373 T 70 QTc 400 Conclusion SINUS RHYTHM NORMAL ECG Electronically signed by : ALANNAH BRYANT, 02/20/2025 07:46:42
[2025-02-20 00:46] LABS: Bilirubin,Urine Negative (Negative); Color,Urine YELLOW (Yellow); Glucose,Urine (UA) Negative (Negative); Ketones,Urine Negative (Negative); Leukocyte Esterase,Urine Negative (Negative); PH,Urine 6.5 (5.0-8.5); Protein,Urine Negative (Negative); Specific Gravity, Urine <= 1.005 (1.005-1.030); Urobilinogen,Urine 0.2 EU/dl (0.2)
[2025-02-20 01:01] LABS: Squamous Epithelial Cell,Urine Occasional #/hpf (0-5)
== END 2025-02-20 01:51 | disposition home or self-care (01) ==
PROVIDERS: Emergency Provider Emergency Medicine; PCP Nurse Practitioner Family
DX: R10.13 Epigastric pain (principal); K43.9 Ventral hernia without obstruction or gangrene
CPT/HCPCS: 71045; 74177; 80053; 81001; 83605; 83690; 84484; 85025; 85610; 93005; 99285; Q9967

== ENCOUNTER 2025-02-23 06:49 | Outpatient (CLI) | payer MEDICARE, MEDICAID, SELFPAY ==
--- OUTSIDE RECORDS SUMMARY | 2025-02-23 06:50 | XMS_ITS | Encounter Summary ---
Author Organization Healthcare Address [address] [id number] Care Team Providers Care Big Data Engineer Name Role Phone Penelope Contreras APRN Primary Care Provider +1- [phone] Reason for Referral * Consultation (Routine) - Closed Specialty Diagnoses / Procedures Referred By Contgerman t Referred To Contact Neurosurgery Diagnoses Cerebral cyst Alin Bee MD [address] [place] [address] Phone: tel: fax: Referral ID Status Reason Start Date Expiration Date V isits Requested Visits Authorized [id number] Closed Specialty Services Required 01/27/2021 07/26/2021 1 1 Encounter Details Date Type Department Care Team (Late st Contact Info) Description 01/27/2021 [facility] [address] [place] [address] Alin Bee MD [address] [place] [address] Cerebral cyst (Primary Dx) Social History Tobacco [...] cysts documented in this encounter Care Teams Big Data Engineer Relationship Specialty Start Date End Date Penelope Contreras APRN [address] [place] [address] PCP - General 12/31/20 documented as of this encounter
--- OUTSIDE RECORDS SUMMARY | 2025-02-23 06:50 | XMS_ITS | Clinical Summary ---
Author Organization Healthcare Address [address] [place] [address] Care Team Providers Care Digital Marketing Intern Name Role Phone Penelope Contreras AIRCRAFT GENERAL REPAIR MECHANIC Primary Care Provider +1- [phone] Active Problems Problem Noted Date Diagnosed Date [...] 2016 UKY-Zoster Vaccines (1 of 2) 2016 [id number] Vaccine (3 - 2023- season) 2024 05/25/2021, 04/29/2021 UKY-Influenza Vaccine (#1) 2025 07/04/2023 UKY-DTaP,Tdap,and Td Vaccine s (2 [...] complete this topic Insurance MEDICARE Care Teams Digital Marketing Intern Relationship Specialty Start Date End Date Penelope Contreras APRN [address] [place], [place] [id number] PCP - General 12/31/20
--- OUTSIDE RECORDS SUMMARY | 2025-02-23 06:50 | XMS_ITS | Encounter Summary ---
Author Organization Healthcare Address [address] [place] [address] Care Team Providers Care Manager Of Application Development Name Role Phone Penelope Contreras SCULLION CHIEF Primary Care Provider +1- [phone] Encounter Details Date Type Department Care Team (Late st Contact Info) Description 10/18/2021 [facility] [address] [place] [address] Victor Manuel Hernández APRN [address] [place] [address] Arachnoid cyst (Primary Dx) Social [...] documented in this encounter Care Teams Manager Of Application Development Relationship Specialty Start Date End Date Penelope Contreras APRN [address] [place] [address] PCP - General 12/31/20 documented as of this encounter
--- NOTE | 2025-02-23 07:00 | CT_ITS ---
FINAL REPORT TECHNIQUE: Axial CT images of the chest were obtained without contrast. Low-dose protocol was utilized. This study was performed with techniques to keep radiation doses as low as reasonably achievable (ALARA). Individualized dose reduction techniques using automated exposure control or adjustment of mA and/or kV according to the patient's size were employed. CLINICAL HISTORY: Lung cancer screening Current smoker 1/2 ppd x40 years, COPD FINDINGS: CT CHEST WITHOUT, LOW DOSE SCREENING CTDl vol(mGy): 2.90 DLP (mGy-cm): 96.38 Current smoker 20 pack year history There is no axillary adenopathy. There is no mediastinal mass or adenopathy. The heart size is normal. There is no pericardial or pleural effusion. Lung window images demonstrate multiple rounded cystic-appearing areas scattered throughout the lungs. 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 There is a 3 mm nodule in the periphery of the right upper lobe on image 17 series 4. Limited images of the upper abdomen demonstrate enlargement of the adrenal glands probably related to bilateral adrenal adenomas. These glands measure up to 1.8 cm. There is a fat-containing hernia of the midline of the upper anterior abdominal wall. 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 Right upper lobe 3 mm nodule. Lung RADS category 2S. Recommend 12 month follow-up low-dose chest CT per Fleischner criteria. 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 Reviewed, Interpreted and Dictated by Lauri Vogel MD Transcribed by Caity Villar Authenticated and [facility]
== END 2025-02-23 23:59 | disposition home or self-care (01) ==
LOC: RAD 06:49
PROVIDERS: PCP Nurse Practitioner Family; Visit Provider Nurse Practitioner Family
DX: R91.1 Solitary pulmonary nodule (principal); R91.8 Other nonspecific abnormal finding of lung field; Z12.2 Encounter for screening for malignant neoplasm of respiratory organs; J44.9 Chronic obstructive pulmonary disease, unspecified; F17.210 Nicotine dependence, cigarettes, uncomplicated
CPT/HCPCS: 71271

== ENCOUNTER 2025-02-27 09:33 | Outpatient (CLI) | payer MEDICARE, MEDICAID, SELFPAY ==
[2025-02-27 09:28] VITALS: BMI 27.1
--- OUTSIDE RECORDS SUMMARY | 2025-02-27 09:36 | XMS_ITS | Encounter Summary ---
Author Organization Healthcare Address [address] [place] [address] Care Team Providers Care Primary School Teacher Name Role Phone Penelope Contreras FLOATING OPERATOR Primary Care Provider +1- [phone] Encounter Details Date Type Department Care Team (Late st Contact Info) Description 10/18/2021 [facility] [place] [facility] [address] [place] [address] Victor Manuel Hernández APRN [address] [place] [address] Arachnoid cyst (Primary Dx) Social [...] cysts documented in this encounter Care Teams Primary School Teacher Relationship Specialty Start Date End Date Penelope Contreras APRN [address] [place] [address] PCP - General 12/31/20 documented as of this encounter
--- OUTSIDE RECORDS SUMMARY | 2025-02-27 09:36 | XMS_ITS | Clinical Summary ---
Author Organization Healthcare Address [address] [place] [address] Care Team Providers Care Home Management Supervisor Name Role Phone Penelope Contreras ADULT LIVE IN CAREGIVER Primary Care Provider +1- [phone] Active Problems Problem Noted Date Diagnosed Date [...] Screening 1966 UKY-Medicare Annual Wellness (AWV) 1966 UKY-/Child/Adol SDOH Screenings 1966 UKY- SDOH Screenings 1984 [...] 2016 UKY-Zoster Vaccines (1 of 2) 2016 [id number] Vaccine (3 - 2023- season) 2024 05/25/2021, [...] complete this topic Insurance MEDICARE Care Teams Home Management Supervisor Relationship Specialty Start Date End Date Penelope Contreras APRN [address] [place], [place] [id number] PCP - General 12/31/20
--- OUTSIDE RECORDS SUMMARY | 2025-02-27 09:36 | XMS_ITS | Encounter Summary ---
Author Organization Healthcare Address [address] [id number] Care Team Providers Care Tester Semiconductor Packages Name Role Phone Penelope Contreras APRN Primary Care Provider +1- [phone] Reason for Referral * Consultation (Routine) - Closed Specialty Diagnoses / Procedures Referred By Contgerman t Referred To Contact Neurosurgery Diagnoses Cerebral cyst Alin Bee MD [address] [place] [address] Phone: tel: fax: Referral ID Status Reason Start Date Expiration Date V isits Requested Visits Authorized [id number] Closed Specialty Services Required 01/27/2021 07/26/2021 1 1 Encounter Details Date Type Department Care Team (Late st Contact Info) Description 01/27/2021 [facility] [address] [place] [address] Alin Bee MD [address] [place] [address] Cerebral cyst (Primary Dx) Social History Tobacco [...] cysts documented in this encounter Care Teams Tester Semiconductor Packages Relationship Specialty Start Date End Date Penelope Contreras APRN [address] [place] [address] PCP - General 12/31/20 documented as of this encounter
--- NOTE | 2025-02-27 10:20 | ECG_ITS ---
APPROVED REPORT Exam: Resting ECG HR:82 bpm ECG Measurements Heart Rate 82 AXES TX 124 P -10 QRSd 90 QRS 36 QT 364 T 65 QTc 403 Conclusion SINUS RHYTHM NORMAL ECG INTERPRETATION BASED ON A DEFAULT AGE OF 41 YEARS UNCONFIRMED REPORT Electronically signed by : Alex Curiel MD 03/01/2025 08:07:30
[2025-02-27 10:44] LABS: Hematocrit 44.2 % (37.0-47.0); Hemoglobin 14.4 g/dL (12.2-16.2); Immature Granulocytes % 0.8 %; Mean Corpuscular HGB Conc 32.6 g/dL (31.8-35.4); Mean Corpuscular Hemoglobin 30.1 pg (27.0-31.2); Mean Corpuscular Volume 92.5 fl (81-99); Nucleated Red Blood Cells % 0 %; Platelet Count 257 K/mm3 (142-424); Red Blood Count 4.78 M/mm3 (4.20-5.40); Red Cell Distribution Width-SD 47.6 fL; White Blood Count 12.4 K/mm3 (4.8-10.8)
[2025-02-27 10:51] LABS: Albumin Level 4.4 g/dl (3.5-5.0); Chloride 98 mmol/L (98-107); Potassium 4.8 mmoL/L (3.5-5.1); Sodium 137 mmol/L (136-145)
[2025-02-27 10:54] LABS: Alanine Aminotransferase 22 U/L (12-78); Albumin/Globulin Ratio 1.4 (1.1-1.8); Alkaline Phosphatase 93 U/L (38-126); Anion Gap 12.8 mEq/L (5-15); Aspartate Amino Transferase 28 U/L (14-36); Bilirubin,Total 0.3 mg/dl (0.2-1.3); Blood Urea Nitrogen 11 mg/dl (7-17); Calcium 9.5 mg/dl (8.4-10.2); Carbon Dioxide 31 mmol/L (22.0-30.0); Creatinine Clearance Estimated 102 mL/min (50-200); Creatinine,Serum 0.60 mg/dl (0.52-1.04); Estimated Glomerular Filt Rate 103 ml/min (>60); GFR (African American) 124 ML/MIN (>60); Globulin 3.1 g/dL (1.3-3.2); Glucose 97 mg/dl (74-100); Total Protein,Serum 7.5 g/dl (6.3-8.2)
== END 2025-02-27 23:59 | disposition home or self-care (01) ==
LOC: PREOP 09:34
PROVIDERS: PCP Nurse Practitioner Family; Visit Provider Surgery
DX: Z01.810 Encounter for preprocedural cardiovascular examination (principal); Z01.812 Encounter for preprocedural laboratory examination
CPT/HCPCS: 80053; 85025; 93005

== ENCOUNTER 2025-03-09 07:45 | Day surgery (SDC) | payer MEDICARE, MEDICAID, SELFPAY ==
[2025-02-27 12:44] VITALS: BMI 27.3
[2025-03-09] VITALS (10 sets, daily range): BP systolic 94–144; BP diastolic 52–86; PULSE 79–104; RESP 14–18; TEMP 36.1–38; O2SAT 93–98
[2025-03-09] MEDS: LACTATED RINGERS 1000ML 1,000 ML 25 ML IV (08:10)
--- NOTE | 2025-03-09 08:52 | EXP.ANES.CKL ---
[facility] Disclaimer: The information contained in this section may have been updated after the patient was seen, as this information can be updated by other users. Medical History COPD exacerbation Rib contusion Bronchitis Pleurisy Dog bite Laceration Neck strain Tobacco use Hyperlipidemia Patient's last lipid panel was done in March 2023. Total cholesterol 173 LDL of 78 HDL of 77 and triglycerides of 51. This is an excellent panel I will keep her on the atorvastatin. IBS (irritable bowel syndrome) Anxiety Chronic prescription benzodiazepine use We were going to take longer to taper this patient off her clonazepam but she stopped it completely. I think she is going through a little bit of withdrawals at this point. But I would not put her back on clonazepam just based on what I saw today. Will start buspirone at 5 mg twice a day. COPD (chronic obstructive pulmonary disease) Primary unilateral adrenal hyperplasia Patient has bilateral adrenal hyperplasia based on the CT scan done August 09. This was not read in detail and no other imaging has been done since that time. We did get a CT scan of the abdomen on September 14 of this year. It did reveal bilateral adrenal hyperplasia . We will get a 24-hour free cortisol level as well as a dexamethasone depression test. Addition we will send this patient to endocrinology once these tests are done. Will leave further testing up to them. Will try to get this done as soon as possible. This patient has osteoporosis she has obesity she has a number of other clinical findings that would be consistent with an ACTH independent lesion. Insomnia Patient states that the amitriptyline was of no help for sleep. We will try tizanidine that she has not been on in the past. Will try this to the 3 times daily dosing of 2 mg 2 mg and 4 mg at bedtime. She can take this as needed and I have discussed this with her as well as the side effects of this medication. Osteoporosis Patient had bone densitometry done in April 2022. This revealed osteoporosis. She is on alendronate 70 mg/week. Additionally she is on vitamin D at 50,000 mcg/week and 1000 mcg/day. Will check a vitamin D the next time she comes in. Her last 2 vitamin D levels were within normal limits. The most recent was April 11 and was 30.8. Additionally she needs to be evaluated for her adrenal hyperplasia see above. Surgical History No pertinent past surgical history Family History Family/Other No significant family history Other Family history of atrial fibrillation Family history of cancer Social History Smoking Status: Current every day smoker tobacco type: cigarettes packs per day: 1 alcohol intake: never counseling provided: none substance use type: denies use current occupational status: disabled Travel in the last 8 weeks?: None household members: spouse housing: house current occupational exposures/hazards: No caffeine: Yes Have you lived/traveled outside US in past 30 days?: No Contact w/someone who lives/traveled outside US past 30 days?: No Exposure to someone with infectious disease in past 14 days?: No Do you have a fever (greater than 100.4 F or 38 C)?: No Have you tested positive for COVID-19?: No Exposed to someone with COVID-19 in past 14 days?: No Do you have a sore throat?: No Do you have a cough?: No Do you have any weakness?: No Do you have any diarrhea?: No Are you experiencing any unusual bleeding?: No Do you have any muscle aches/pain?: No Do you have any abdominal pain?: No Are you experiencing loss of taste or smell?: No [facility] Anesthesia Checklist Patient Identification Patient Identification: Arm Band Structural Data Admitted From: Home Planned Operative Procedure/s: Laparoscopic Ventral Hernia Repair Consent for Planned Operative Procedure(s) Verified: Yes Verified Documents: Surgical Consent and History and Physical NPO Status Verified Time NPO: 00:00 Additional verifications Anesthesia Reactions: No Hx Blood Transfusions: No Blood Transfusion Reaction: No Airway Assessment Mallampati Score:: Class II C-Spine Mobility Assessed: Yes TMJ Mobility Assessed: Yes Dentition: Good Dentition Neurological Assessment Level of Consciousness: Awake, Alert and Appropriate Anesthesia Plan Anesthesia Risk discussed: Yes Anesthesia Plan: Verified ASA Class: II Anesthesia Type: General
--- NOTE | 2025-03-09 10:36 | EXP.OP.NOTE ---
Date of procedure: 03/09/25 Pre-op Diagnosis:: Epigastric ventral hernia Post-op Diagnosis:: Same Procedure performed:: Laparoscopic assisted repair of epigastric ventral hernia with placement of large (8 cm) Bard Ventralex mesh Surgeon:: Harish Monae MD SPOTLIGHT OPERATOR:: Mikey Mccain Anesthesia: JANE Estimated blood loss (mL): 10 Clinical Note:: Patient is a 59-year-old female with several comorbidities including COPD, tobacco use, hyperlipidemia. She presented to the emergency department on 02/19/2025 with complaints of knot on the stomach . Reportedly she has had a hernia present for some time but it had increased in size. She was seen in the emergency department and found to have upper abdominal fat-containing hernia and was able to be managed as an outpatient. Operative findings:: She had an epigastric hernia with defect measuring about 2 cm. There was chronically incarcerated preperitoneal fat and some herniated omentum along with the falciform ligament. Operative note:: Consent was obtained patient was taken the operating room. She was positioned in supine position. General anesthesia was induced via endotracheal tube. Ward catheter was placed. Abdomen was prepped and draped in a standard surgical fashion. Through a tiny 1 or 2 mm incision in the left subcostal area Veress needle was inserted. CO2 pneumoperitoneum was achieved to 15 mmHg. This was removed and the incision was extended a few millimeters and under laparoscopic visualization 5 mm optical trocar was inserted. Intraperitoneal contents were visualized. She was found to have herniated preperitoneal fatty tissues with some minimal herniation of omentum. 5 mm trocar was inserted under laparoscopic visualization in the left lateral abdomen. Hernia contents were taken down using ultrasonic harmonic sary to incise peritoneal attachments. The surrounding peritoneum was dissected free and the falciform ligament was divided with care taken to coagulate in the process. This exposed the defect which appeared to measure a couple centimeters. A small incision was made over the defect. CO2 pneumoperitoneum was evacuated as dissection was carried down to the subcutaneous tissues. Peritoneum of the hernia sac was dissected free from the surrounding subcutaneous tissues using electrocautery with dissection carried down to the fascial defect. Large sized Bard Ventralex mesh was then inserted through the defect and the tails were elevated. Attention was then returned once again to laparoscopic portion of the procedure. Mesh was oriented intracorporeally to cover the defect. It was secured with several OPTi fix tacks around its periphery. Repair appeared adequate. Attention was then turned once again to the open portion of the mesh placement. The tails of the mesh were sutured superiorly and inferiorly to the fascia with interrupted 2-0 PDS sutures. Tails of the mesh were then cut flush with the fascia. Local anesthetic was infiltrated. Attention was turned once again to laparoscopic portion and visualization of the mesh revealed it to be in a good position with good fascial overlap coverage and good hemostasis. Trocars were then removed the CO2 pneumoperitoneum was evacuated. Skin incisions were closed with 4-0 Monocryl in a subcuticular fashion. Steri-Strips and dressings were applied. Condition: stable Disposition: PACU Complications:: None immediately apparent
--- NOTE | 2025-03-09 10:46 | EXP.ANES.I ---
[facility] Anesthesia Record Part I Anesthesia Record I Intake, IV Amount: 600 Hydration: Adequate Estimated blood loss (mL): 0 Urine output (mL): 200 Blood Products used (#): none Blood Pressure: 138/72 SaO2: 94 Pulse Rate: 104 Airway Patency: Patent Respiratory Rate: 14 Temperature: 98.4 F Patient is:: Awake and Stable Stable to PACU at:: 10:43
[2025-03-09] MEDS: MORPHINE 2MG/ML SYRINGE 2 MG IV (10:55)
[2025-03-09 14:15] LABS: Microscopic,Cath URINE MICROSCOPIC (MICROSCOPIC)
[2025-03-09 14:24] LABS: Appearance,Urine/Cath CLEAR (Clear); Bilirubin,Cath Negative (Negative); Blood, Urine/Cath Negative (Negative); Color,Urine/Cath YELLOW (Yellow); Glucose,Urine/Cath (UA) Negative (Negative); Ketones,Urine/Cath Negative (Negative); Leukocyte Esterase,Cath Negative (Negative); Nitrate,Cath Negative (Negative); PH,Urine/Cath 6.0 (5.0-8.5); Protein,Urine/Cath Negative (Negative); Specific Gravity, Urine/Cath 1.020 (1.005-1.030); Urobilinogen,Cath 0.2 EU/dl (0.2)
--- NOTE | 2025-03-10 09:56 | P.PNANES_ITS ---
[facility] Anesthesia Record Part II Anesthesia Record Part II Discharge Time: 11:13 Destination: [facility] PACU nurse assessment reviewed?: Yes Patient Condition:: Good Anesthesia Complications:: None Swallowing reflex intact?: Yes Airway Patency: Patent Cyanosis?: No Blood Pressure: 94/78 SaO2: 94 Respiratory Rate: 18 Pulse Rate: 86 Temperature: 97.0 F Mental Status: Alert & Oriented Pain level:: 0 Nausea and/or vomitting:: None Intake, IV Amount: 800 Hydration: Adequate
[2025-03-10 09:58] VITALS: BP 94/78; PULSE 86; RESP 18; TEMP 36.1; O2SAT 94
== END 2025-03-09 11:55 | disposition home or self-care (01) ==
PROVIDERS: PCP Nurse Practitioner Family; Visit Provider Surgery
PROC: 0WQF4ZZ Repair Abdominal Wall, Percutaneous Endoscopic Approach (ICD-10-PCS; CPT 49594; principal; 2025-03-09 09:35)
DX: K43.6 Other and unspecified ventral hernia with obstruction, without gangrene (principal); E78.5 Hyperlipidemia, unspecified; J44.9 Chronic obstructive pulmonary disease, unspecified; F41.9 Anxiety disorder, unspecified; K58.9 Irritable bowel syndrome, unspecified; G47.00 Insomnia, unspecified; M81.0 Age-related osteoporosis without current pathological fracture; F17.210 Nicotine dependence, cigarettes, uncomplicated; E27.8 Other specified disorders of adrenal gland; Z79.83 Long term (current) use of bisphosphonates; Z79.899 Other long term (current) drug therapy; Z79.51 Long term (current) use of inhaled steroids
CPT/HCPCS: 49594; 51702; 81001; C1781; J0690; J1100; J2003; J2250; J2270; J2405; J2704; J3010; J7120

== ENCOUNTER 2025-07-05 12:24 | Outpatient (CLI) | payer MEDICARE, MEDICAID, SELFPAY ==
[2025-07-05 21:24] LABS: Coronavirus 19, PCR Not Detected (NotDetected); Influenza A, PCR Not Detected (NotDetected); Influenza B, PCR Not Detected (NotDetected)
== END 2025-07-05 23:59 ==
LOC: LAB.DROPOF 07-06 10:05
PROVIDERS: PCP Nurse Practitioner Family; Visit Provider Student in an Organized Health Care Education/Training Program
DX: R50.9 Fever, unspecified (principal)
CPT/HCPCS: 87636

== ENCOUNTER 2025-07-06 12:18 | Outpatient (CLI) | payer MEDICARE, MEDICAID, SELFPAY ==
--- NOTE | 2025-07-06 12:29 | XR_ITS ---
FINAL REPORT TECHNIQUE: Chest PA & Lateral CLINICAL HISTORY: cough-- dx lung disease COMPARISON: None FINDINGS: 2 views of the chest were performed. The heart size is normal. The mediastinum is within normal limits. There is coarse interstitial opacity at the lung bases, likely mild chronic fibrosis. There are no pleural effusions. There is no pneumothorax. Mild thoracic scoliosis is convex to the right. IMPRESSION: Mild chronic fibrosis. No acute cardiopulmonary process Reviewed, Interpreted and Dictated by Lauri Vogel MD Transcribed by Marisela Reyez Authenticated and [facility]
== END 2025-07-06 23:59 | disposition home or self-care (01) ==
LOC: LAB 12:19
PROVIDERS: PCP Nurse Practitioner Family; Visit Provider Internal Medicine Pulmonary Disease
DX: J43.9 Emphysema, unspecified (principal); R05.3 Chronic cough
CPT/HCPCS: 36415; 71046; 82103; 82104; 87070; 87077; 87205

== ENCOUNTER 2025-07-13 09:45 | Outpatient (CLI) | payer MEDICARE, MEDICAID, SELFPAY ==
--- OUTSIDE RECORDS SUMMARY | 2025-07-13 09:47 | XMS_ITS | Encounter Summary ---
Author Organization Healthcare Address [address] [place] [address] Care Team Providers Care Ship'S Carpenter Name Role Phone Penelope Contreras APRN Primary Care Provider +1- [phone] Reason for Referral * Consultation (Routine) - Closed Specialty Diagnoses / Procedures Referred By Contgerman t Referred To Contact Neurosurgery Diagnoses Cerebral cyst Alin Bee MD [address] [place] [address] Phone: tel: fax: Referral ID Status Reason Start Date Expiration Date V isits Requested Visits Authorized [id number] Closed Specialty Services Required 01/27/2021 07/26/2021 1 1 Encounter Details Date Type Department Care Team (Late st Contact Info) Description 01/27/2021 [facility] [address] [place] [address] Alin Bee MD [address] [place] [address] Cerebral cyst (Primary Dx) Social History Tobacco [...] cysts documented in this encounter Care Teams Ship'S Carpenter Relationship Specialty Start Date End Date Penelope Contreras APRN [address] [place] [address] PCP - General 12/31/20 documented as of this encounter
--- OUTSIDE RECORDS SUMMARY | 2025-07-13 09:47 | XMS_ITS | Clinical Summary ---
Author Organization Healthcare Address [address] [place] [address] Care Team Providers Care Parts Representative Name Role Phone Penelope Contreras HEAD BATCHER Primary Care Provider +1- [phone] Active Problems Problem Noted Date Diagnosed Date [...] 2016 UKY-Zoster Vaccines (1 of 2) 2016 [id number] Vaccine (3 - 2024- season) 2025 05/25/2021, 04/29/2021 UKY-Influenza Vaccine (#1) 2025 07/04/2023 [...] complete this topic Insurance MEDICARE Care Teams Parts Representative Relationship Specialty Start Date End Date Penelope Contreras APRN [address] [place], [place] [id number] PCP - General 12/31/20
--- OUTSIDE RECORDS SUMMARY | 2025-07-13 09:47 | XMS_ITS | Encounter Summary ---
Author Organization Healthcare Address [address] [place] [address] Care Team Providers Care Gravel Inspector Name Role Phone Penelope Contreras LEATHER CASE FINISHER Primary Care Provider +1- [phone] Encounter Details Date Type Department Care Team (Late st Contact Info) Description 10/18/2021 [facility] [address] [place] [address] Victor Manuel Hernández, LEATHER CASE FINISHER [address] [id number] Arachnoid cyst (Primary Dx) Social History Tobacco [...] cysts documented in this encounter Care Teams Gravel Inspector Relationship Specialty Start Date End Date Penelope Contreras APRN [address] [place] [address] PCP - General 12/31/20 documented as of this encounter
[2025-07-13 10:45] VITALS: PULSE 107; PULSE 98
[2025-07-13] MEDS: ALBUTEROL 0.083% 2.5 MG/3 ML NEB IH (10:45)
== END 2025-07-13 23:59 | disposition home or self-care (01) ==
LOC: RT 09:45
PROVIDERS: PCP Nurse Practitioner Family; Visit Provider Internal Medicine Pulmonary Disease
DX: R94.2 Abnormal results of pulmonary function studies (principal); R06.09 Other forms of dyspnea; R06.02 Shortness of breath
CPT/HCPCS: 94060; 94618; 94640; 94726; 94729